=== PATIENT | female | born 1950 | race Caucasian/White ===

== ENCOUNTER 2020-06-18 10:52 | Outpatient (RCR) | payer MEDICARE, SELFPAY | END 2020-10-26 11:40 | disposition home or self-care (01) | LOC: HO.WCC 10:52 | PROVIDERS: PCP Internal Medicine; Visit Provider Surgery | DX: E11.621 Type 2 diabetes mellitus with foot ulcer (principal); E11.51 Type 2 diabetes mellitus with diabetic peripheral angiopathy without gangrene; I70.235 Atherosclerosis of native arteries of right leg with ulceration of other part of foot; L97.513 Non-pressure chronic ulcer of other part of right foot with necrosis of muscle; E11.69 Type 2 diabetes mellitus with other specified complication; M86.171 Other acute osteomyelitis, right ankle and foot; I70.202 Unspecified atherosclerosis of native arteries of extremities, left leg; I69.351 Hemiplegia and hemiparesis following cerebral infarction affecting right dominant side; G82.22 Paraplegia, incomplete; Z79.2 Long term (current) use of antibiotics; Z79.84 Long term (current) use of oral hypoglycemic drugs; Z79.01 Long term (current) use of anticoagulants; Z79.899 Other long term (current) drug therapy | CPT/HCPCS: 10060; 10061; 11042; 11043; 87071; 87147; 87186; 87205; 99213; 99214 ==

== ENCOUNTER 2020-06-30 16:29 | Outpatient (REF) | payer MEDICARE, SELFPAY | END 2020-06-30 16:30 | disposition home or self-care (01) | LOC: HO.LNP 16:29 | PROVIDERS: Visit Provider Surgery | DX: S90.921A Unspecified superficial injury of right foot, initial encounter (principal) | CPT/HCPCS: 87071; 87147; 87186; 87205 ==

== ENCOUNTER 2020-09-01 14:04 | Outpatient (REF) | payer MEDICARE, SELFPAY ==
--- NOTE | 2020-09-01 14:12 | XR_ITS ---
EXAMINATION: XR FOOT, RIGHT CLINICAL INFORMATION: Evaluate for fifth metatarsal head osteomyelitis COMPARISON: None TECHNIQUE: AP, lateral, and oblique views of the right foot. FINDINGS: Bone alignment is normal. No fracture or dislocation is seen. There is erosive or cystic change of the lateral aspect of the base of the proximal phalanx of the fifth toe at the fifth MTP joint questionable for osteomyelitis. The joint spaces are otherwise normal. There is soft tissue swelling adjacent to the fifth MTP joint. There are calcaneal spurs. There is soft tissue arterial calcification. XR/XR foot RT min 3V IMPRESSION: Subtle erosive or cystic changes of the base of the proximal phalanx of the fifth toe at the MTP joint questionable for osteomyelitis.
== END 2020-09-01 14:05 | disposition home or self-care (01) ==
LOC: HO.XRAY 14:04
PROVIDERS: PCP Internal Medicine; Visit Provider Surgery
DX: I70.203 Unspecified atherosclerosis of native arteries of extremities, bilateral legs (principal)
CPT/HCPCS: 73630

== ENCOUNTER → 2020-09-24 13:47 | Outpatient (BNVA) | payer MEDICARE, SELFPAY | PROVIDERS: Visit Provider Internal Medicine | DX: L08.9 Local infection of the skin and subcutaneous tissue, unspecified (principal) | CPT/HCPCS: 99202 ==

== ENCOUNTER → 2020-10-15 13:10 | Outpatient (BNVA) | payer MEDICARE, SELFPAY | PROVIDERS: Visit Provider Internal Medicine | DX: Z76.89 Persons encountering health services in other specified circumstances (principal) | CPT/HCPCS: 99212 ==

== ENCOUNTER 2020-10-15 14:08 | Inpatient (IN) | payer MEDICARE, SELFPAY ==
--- NOTE | ~2020-10-15 | US_ITS ---
EXAMINATION: COLOR-FLOW DUPLEX IMAGING OF THE BILATERAL LOWER EXTREMITY ARTERIAL SYSTEM. VELOCITY MEASUREMENTS THROUGHOUT THE FEMORAL ARTERIES WITH ANKLE-BRACHIAL PERIPHERAL ARTERIAL TESTING. CLINICAL INFORMATION: This a 70-year-old female with a nonhealing ulcer. Peripheral arterial disease. Interventional Radiologist: Wili Cartagena M.D., F.S.I.R., F.A.C.R. RIGHT FEMORAL RUNOFF VELOCITIES: The right common femoral artery measures 135 cm/s and triphasic. The right profunda femoral artery is 75 cm/s and is monophasic. Right proximal superficial femoral artery measures 98 cm/s and triphasic. Mid superficial femoral artery is 86 cm/s and biphasic. Distal right superficial femoral artery measures 69 cm/s and is biphasic. Right popliteal velocity measures 82 cm/s and is biphasic. The posterior tibial artery velocity measures 29 cm/s and was biphasic. The right ankle-brachial index is 1.02. LEFT FEMORAL RUNOFF VELOCITIES: The left common femoral artery measures 153 cm/s and triphasic. The left profunda femoral artery is 134 cm/s and is biphasic. Left proximal superficial femoral artery measures 72 cm/s and triphasic. Mid superficial femoral artery is 76 cm/s and biphasic. Distal left superficial femoral artery measures 57 cm/s and is biphasic. Left popliteal velocity measures 39 cm/s and is biphasic. The posterior tibial artery is not visualized. It may be occluded. The left ankle-brachial index is 1.36. US/US arterial duplex LE BI IMPRESSION: 1. Normal bilateral ankle-brachial indices. 2. No focal hemodynamically significant velocity shift is seen in the inflow or outflow vessels. 3. The left posterior tibial artery is not visualized and may be occluded. The right posterior tibial artery velocity is very low and the waveform is biphasic. This raises the possibility of small vessel disease in this patient.
--- NOTE | ~2020-10-15 | XR_ITS ---
EXAMINATION: XR FOOT, RIGHT CLINICAL INFORMATION: Right foot ulcer. COMPARISON: None TECHNIQUE: AP, lateral, and oblique views of the right foot. FINDINGS: A soft tissue wound is seen laterally adjacent to the fifth metatarsophalangeal joint. Erosive changes and lucency are seen involving the distal head of the fifth metatarsal and proximal base of the proximal phalanx at the fifth metatarsophalangeal joint space. The remainder the digits are intact. The tarsal bones are normally aligned. There is a small plantar calcaneal spur. Moderate to severe small vessel arterial sclerosis is seen. XR/XR foot RT 2V IMPRESSION: Lateral soft tissue wound superficial with erosive changes at the fifth metatarsophalangeal joint as detailed above concerning for osteomyelitis.
--- NOTE | ~2020-10-15 | US_ITS ---
EXAMINATION: COLOR-FLOW DUPLEX IMAGING OF THE BILATERAL LOWER EXTREMITY ARTERIAL SYSTEM. VELOCITY MEASUREMENTS THROUGHOUT THE FEMORAL ARTERIES WITH ANKLE-BRACHIAL PERIPHERAL ARTERIAL TESTING. CLINICAL INFORMATION: This a 70-year-old female with a nonhealing ulcer. Peripheral arterial disease. Interventional Radiologist: Wili Cartagena M.D., F.S.I.R., F.A.C.R. RIGHT FEMORAL RUNOFF VELOCITIES: The right common femoral artery measures 135 cm/s and triphasic. The right profunda femoral artery is 75 cm/s and is monophasic. Right proximal superficial femoral artery measures 98 cm/s and triphasic. Mid superficial femoral artery is 86 cm/s and biphasic. Distal right superficial femoral artery measures 69 cm/s and is biphasic. Right popliteal velocity measures 82 cm/s and is biphasic. The posterior tibial artery velocity measures 29 cm/s and was biphasic. The right ankle-brachial index is 1.02. LEFT FEMORAL RUNOFF VELOCITIES: The left common femoral artery measures 153 cm/s and triphasic. The left profunda femoral artery is 134 cm/s and is biphasic. Left proximal superficial femoral artery measures 72 cm/s and triphasic. Mid superficial femoral artery is 76 cm/s and biphasic. Distal left superficial femoral artery measures 57 cm/s and is biphasic. Left popliteal velocity measures 39 cm/s and is biphasic. The posterior tibial artery is not visualized. It may be occluded. The left ankle-brachial index is 1.36. US/US JATIN complete IMPRESSION: 1. Normal bilateral ankle-brachial indices. 2. No focal hemodynamically significant velocity shift is seen in the inflow or outflow vessels. 3. The left posterior tibial artery is not visualized and may be occluded. The right posterior tibial artery velocity is very low and the waveform is biphasic. This raises the possibility of small vessel disease in this patient.
--- NOTE | ~2020-10-15 | CT_ITS ---
EXAMINATION: CT FOOT WITHOUT CONTRAST, RIGHT CLINICAL INFORMATION: Diabetic foot ulcer COMPARISON: Radiographs 10/15/2020 TECHNIQUE: A noncontrast CT of the right foot is performed with sagittal and coronal reformats. This CT examination was performed using dose optimization techniques as appropriate, variously including the following: *Automated exposure control *Adjustment of mA and/or kV according to patient size (this includes techniques or standardized protocols for targeted exams where dose is matched to indication/reason for exam; i.e. extremities or head) *Use of iterative reconstruction technique DLP: 168 mGy-cm FINDINGS: There is a soft tissue ulcer along the dorsal lateral aspect of the 5th MTP joint. The 5th metatarsal head is eroded/destroyed over a length of 1.5 cm to the head which is dorsally displaced. There is also evidence of erosion involving the base of the 5th proximal phalanx. These findings are compatible with osteomyelitis. No other foci of osteomyelitis are evident. Diffuse vascular calcifications are noted. CT/CT foot RT wo con IMPRESSION: Evidence of osteomyelitis involving the 5th metatarsal head and likely the base of the proximal phalanx.
[2020-10-15 15:12] VITALS: BP 112/57; PULSE 90; RESP 18; TEMP 36.8; O2SAT 98; BMI 34.7
--- NOTE | 2020-10-15 16:05 | ED_ITS ---
HPI - General Adult General Chief complaint: General Medical Stated complaint: foot infection Time Seen by Provider: 10/15/20 16:05 Source: patient and family Mode of arrival: ambulatory Limitations: other (MEMORY LOSS) History of Present Illness HPI narrative: Patient is 70 years old with history of diabetes, CVA with memory loss sent from ID office for nonhealing deep wound on the lateral aspect of the R foot for last 6 months and been on doxycycline having purulent discharge lately with slight warmth around the wound Onset (ago): month(s) (6) Related Data Home Medications Medication Instructions Recorded Confirmed levetiracetam 750 tab PO BID 10/15/20 10/15/20 lisinopril 5 tab PO DAILY 10/15/20 10/15/20 metformin 500 tab PO BID 10/15/20 10/15/20 warfarin 3 mg PO DAILY 10/15/20 10/15/20 Allergies Allergy/AdvReac Type Severity Reaction Status Date / Time bupropion [From Wellbutrin] Allergy Intermediate Seizure Verified 10/15/20 15:12 Review of Systems Review of Systems: Constitutional : No Weight loss, No Fever, No Chills ENT/Mouth : No sore throat, No Rhinorrhea Eyes: No Eye Pain, No Swelling Cardiovascular : No Chest Pain, no palpitations Respiratory : No Cough, No Sputum, no shortness of breath Gastrointestinal : no Nausea, No Vomiting, No Diarrhea, No abdominal Pain, no black stools Genitourinary : No Dysuria, No Urinary Frequency Musculoskeletal : No joint pain, No Myalgias, No Joint Swelling Skin : No Skin Lesions, No rash Neuro : No Weakness, No Numbness, No Dizziness, No Headache Psych : No Anxiety/Panic, No Depression Heme/Lymph: No Bruising, No Lymphadenopathy Endocrine : No Polyuria, No Polydipsia All other systems reviewed and are negative PMF Past Medical History Medical History (Updated 10/15/20 @ 16:50 by Lizandro Danielle MD) Afib CVA (cerebral vascular accident) Diabetes mellitus Expressive aphasia HTN (hypertension) On Coumadin for atrial fibrillation Right foot infection Seizures Surgical History (Updated 10/15/20 @ 15:19 by Yohana Bell) H/O shoulder surgery Social History Social History Smoking Status: Former smoker Use of substances other than those prescribed or required for medical reasons: No Advance Directives: No Advance Directives Information Provided: No Physical Exam Vital Signs: Vital Signs: Last Vital Signs Temp 98.0 F 10/15/20 16:27 Pulse 81 10/15/20 18:10 Resp 18 10/15/20 18:10 BP 119/64 10/15/20 18:10 Pulse Ox 97 10/15/20 18:10 Body Mass Index 34.7 Appearance: Alert. Oriented X3. No acute distress. Eyes: Pupils equal, round and reactive to light. ENT: Pharynx normal. Neck: Normal inspection. Neck supple. CVS: Normal heart rate and rhythm. Pulses normal. Respiratory: No respiratory distress. Breath sounds normal. Abdomen: Soft and nontender. Bowel sounds are present, no mass palpable, no CVA tenderness Skin: Skin warm and dry. Deep puncture wound on lateral aspect of right foot and head of 5th metatarsal with local warmth foul smelling discharge Extremities: No lower extremity edema. Neuro: Oriented X 3. No motor deficit. No sensory deficit. Extrem: Ankle/foot/toe images: 1. Deep puncture wound with foul smelling discharge packing inside Medical Decision Making MDM Narrative Medical decision making narrative: Patient with deep nonhealing ulcer right foot with bone erosion suggestive of osteomyelitis changes will admit patient for IV antibiotics and surgery consultation for possible surgery Lab Data Lab results reviewed: Yes I reviewed the patient's lab results. Result diagrams: 10/15/20 16:47 10/15/20 16:47 Labs: Lab Results 10/15/20 10/15/20 10/15/20 Range/Units 16:47 16:47 16:47 WBC 7.7 (4.8-10.8) X10*3/uL RBC 4.06 L (4.20-5.50) X10*6/uL Hgb 12.5 (12.0-16.0) g/dl Hct 37.9 (37-47) % MCV 93.3 (80-98) fL MCH 30.8 (27.0-33.0) pg MCHC 33.0 (31.0-35.0) g/dl RDW 12.6 (11.0-16.0) % Plt Count 264 (160-400) X10*3/uL MPV 8.6 L (9.4-12.3) fL Immature Gran % (Auto) 0.3 (0.0-0.4) % Neut % (Auto) 61.0 (45-73) % Lymph % (Auto) 29.1 (20-40) % [place] % (Auto) 7.0 (2-11) % Eos % (Auto) 2.3 (0-4) % Baso % (Auto) 0.3 (0-2) % Lymph # (Auto) 2.2 (1.2-4.9) X10*3/uL [place] # (Auto) 0.5 (0.1-1.2) X10*3/uL Eos # (Auto) 0.2 (0.0-0.4) X10*3/uL Baso # (Auto) 0.0 (0.0-0.2) X10*3/uL Abs Immat Gran (auto) 0.02 (0.00-0.03) X10*3/uL Absolute Neuts (auto) 4.7 (2.0-8.3) X10*3/uL Absolute Nucleated RBC 0.000 (0.0-0.012) X10*3/uL Nucleated RBC % (auto) 0.0 (0.0-0.2) /100WBC ESR (0-20) MM/HR PT 22.1 H (10.8-13.0) SEC INR 1.9 H (0.9-1.1) Sodium 135 (135-145) mmol/L Potassium 4.6 (3.3-5.1) mmol/L Chloride 100 (96-108) mmol/L Carbon Dioxide 24 (22-29) mmol/L Anion Gap 16 (12-20) BUN 26 H (9-16) mg/dL Creatinine 0.79 (0.5-1.4) mg/dL Estim Creat Clear Calc 66.5 Estimated GFR > 60 Random Glucose 109 (60-115) mg/dL Lactic Acid (0.5-2.0) mmol/L Calcium 9.8 (8.4-10.2) mg/dL Total Bilirubin 0.8 (0.0-1.0) mg/dL Direct Bilirubin 0.3 (0.0-0.5) mg/dL AST 14 (5-31) U/L ALT 14 (0-31) U/L Alkaline Phosphatase 58 (39-117) U/L Total Protein 7.5 (6.5-8.0) g/dL Albumin 4.1 (3.5-5.0) g/dL COVID-19 ([facility]) (Negative) COVID-19 Clin Com 10/15/20 10/15/20 10/15/20 Range/Units 16:47 16:47 16:47 WBC (4.8-10.8) X10*3/uL RBC (4.20-5.50) X10*6/uL Hgb (12.0-16.0) g/dl Hct (37-47) % MCV (80-98) fL MCH (27.0-33.0) pg MCHC (31.0-35.0) g/dl RDW (11.0-16.0) % Plt Count (160-400) X10*3/uL MPV (9.4-12.3) fL Immature Gran % (Auto) (0.0-0.4) % Neut % (Auto) (45-73) % Lymph % (Auto) (20-40) % [place] % (Auto) (2-11) % Eos % (Auto) (0-4) % Baso % (Auto) (0-2) % Lymph # (Auto) (1.2-4.9) X10*3/uL [place] # (Auto) (0.1-1.2) X10*3/uL Eos # (Auto) (0.0-0.4) X10*3/uL Baso # (Auto) (0.0-0.2) X10*3/uL Abs Immat Gran (auto) (0.00-0.03) X10*3/uL Absolute Neuts (auto) (2.0-8.3) X10*3/uL Absolute Nucleated RBC (0.0-0.012) X10*3/uL Nucleated RBC % (auto) (0.0-0.2) /100WBC ESR 58 H (0-20) MM/HR PT (10.8-13.0) SEC INR (0.9-1.1) Sodium (135-145) mmol/L Potassium (3.3-5.1) mmol/L Chloride (96-108) mmol/L Carbon Dioxide (22-29) mmol/L Anion Gap (12-20) BUN (9-16) mg/dL Creatinine (0.5-1.4) mg/dL Estim Creat Clear Calc Estimated GFR Random Glucose (60-115) mg/dL Lactic Acid 1.3 (0.5-2.0) mmol/L Calcium (8.4-10.2) mg/dL Total Bilirubin (0.0-1.0) mg/dL Direct Bilirubin (0.0-0.5) mg/dL AST (5-31) U/L ALT (0-31) U/L Alkaline Phosphatase (39-117) U/L Total Protein (6.5-8.0) g/dL Albumin (3.5-5.0) g/dL COVID-19 ([facility]) Negative (Negative) COVID-19 Clin Com See Note Imaging Data Right foot: Attestation: I personally reviewed and interpreted this imaging study as follows: Radiologist's impression: EXAMINATION: XR FOOT, RIGHT CLINICAL INFORMATION: Right foot ulcer. COMPARISON: None TECHNIQUE: AP, lateral, and oblique views of the right foot. FINDINGS: A soft tissue wound is seen laterally adjacent to the fifth metatarsophalangeal joint. Erosive changes and lucency are seen involving the distal head of the fifth metatarsal and proximal base of the proximal phalanx at the fifth metatarsophalangeal joint space. The remainder the digits are intact. The tarsal bones are normally aligned. There is a small plantar calcaneal spur. Moderate to severe small vessel arterial sclerosis is seen. XR/XR foot RT 2V IMPRESSION: Lateral soft tissue wound superficial with erosive changes at the fifth metatarsophalangeal joint as detailed above concerning for osteomyelitis. Discharge Plan Discharge Prescriptions: No Action metformin 500 mg tablet 500 tab PO BID RF: 0 warfarin 3 mg tablet 3 mg PO DAILY RF: 0 levetiracetam 750 mg tablet 750 tab PO BID RF: 0 lisinopril 5 mg tablet 5 tab PO DAILY RF: 0
[2020-10-15 16:27] VITALS: BP 114/61; PULSE 86; RESP 18; TEMP 36.7; O2SAT 98
--- NOTE | 2020-10-15 16:29 | PC.NURSE ---
pt alert but also states having trouble remembering and expressing her words due to old cva pt here for right foot wound, had packing that was almost complete out, small hole on the outer of the right foot with slight foul order, tender to touch and slightly warm to touch, dr aragon removed the packing. positive pedal pulses
[2020-10-15 16:55] LABS: MANUAL DIFF FLAG NO
[2020-10-15 16:57] LABS: Basophils Percent Auto 0.3 % (0-2); Eosinophils Absolute Auto 0.2 X10*3/uL (0.0-0.4); Eosinophils Percent Auto 2.3 % (0-4); Hematocrit 37.9 % (37-47); Hemoglobin 12.5 g/dl (12.0-16.0); Imm Gran Abs Auto 0.02 X10*3/uL (0.00-0.03); Imm Gran Pct Auto 0.3 % (0.0-0.4); Lymphocytes Absolute Auto 2.2 X10*3/uL (1.2-4.9); Lymphocytes Percent Auto 29.1 % (20-40); Mean Corpuscular Hemoglobin 30.8 pg (27.0-33.0); Mean Corpuscular Volume 93.3 fL (80-98); Mean Platelet Volume 8.6 fL (9.4-12.3); Monocytes Absolute Auto 0.5 X10*3/uL (0.1-1.2); Neutrophils Absolute Auto 4.7 X10*3/uL (2.0-8.3); Platelet Count 264 X10*3/uL (160-400); Red Blood Count 4.06 X10*6/uL (4.20-5.50); Red Cell Distribution Width 12.6 % (11.0-16.0); White Blood Count 7.7 X10*3/uL (4.8-10.8)
[2020-10-15 17:06] LABS: INTERNATIONAL NORM RATIO 1.9 (0.9-1.1); Prothrombin Time 22.1 SEC (10.8-13.0)
[2020-10-15 17:14] LABS: COVID-19 Test Negative (Negative)
[2020-10-15 17:16] LABS: Lactic Acid 1.3 mmol/L (0.5-2.0)
[2020-10-15 17:25] LABS: Alanine Aminotransferase 14 U/L (0-31); Albumin Level 4.1 g/dL (3.5-5.0); Alkaline Phosphatase 58 U/L (39-117); Anion Gap 16 (12-20); Aspartate Amino Transferase 14 U/L (5-31); Bilirubin Direct 0.3 mg/dL (0.0-0.5); Bilirubin Total 0.8 mg/dL (0.0-1.0); Blood Urea Nitrogen 26 mg/dL (9-16); Calcium 9.8 mg/dL (8.4-10.2); Carbon Dioxide 24 mmol/L (22-29); Chloride 100 mmol/L (96-108); Creatinine Clr Calc Pharmacy 66.5; Estimated Glomerular Filt Rate > 60; Glucose Random 109 mg/dL (60-115); Potassium 4.6 mmol/L (3.3-5.1); Sodium 135 mmol/L (135-145); Total Protein 7.5 g/dL (6.5-8.0)
[2020-10-15] MEDS: Piperacillin Sodium/Tazobactam 3.375 GM in 0.9 % Sodium Chloride 50 ML IV ×2 (17:25→21:07)
[2020-10-15 18:02] LABS: Erythrocyte Sedimentation Rate 58 MM/HR (0-20)
[2020-10-15 18:10] VITALS: BP 119/64; PULSE 81; RESP 18; O2SAT 97
[2020-10-15] MEDS: vancomycin HCL 1,000 MG in 0.9 % Sodium Chloride 250 ML 270 MG IV (18:10)
[2020-10-15 19:10] LABS: Glucose Urine UA NEG (NEG); Leukocyte Esterase Urine NEG (NEG); Nitrite Urine NEG (NEG); PH 5.5 (5.0-8.0); Urine Blood NEG (NEG); Urine Ketones NEG (NEG); Urine Protein NEG (NEG-TRACE)
[2020-10-15 19:11] LABS: Appearance Urine CLEAR; Color Urine YELLOW
--- NOTE | 2020-10-15 19:16 | PC.NURSE ---
REPORT RECEIVED FROM DIEGO MELLO. WILL CONTINUE TO MONITOR.
--- NOTE | 2020-10-15 19:21 | PC.NURSE ---
PATIENT REQUESTED AND GIVEN TURKEY SANDWICH AND [employer]. CALL [facility]BY WITHIN REACH, PATIENT ABLE TO MAKE NEEDS KNOWN.
--- NOTE | 2020-10-15 20:01 | PC.NURSE ---
HOSPITALIST AT BEDSIDE SPEAKING WITH PATIENT. AWAITING ADMITTING BED.
--- NOTE | 2020-10-15 20:10 | P.HPHOSP_ITS ---
History of Present Illness Date of Service: 10/15/20 Chief Complaint: Foot wound 70 year old women presented with diabetic foot wound that has been ongoing for some time. She was seen at the wound clinic today and was sent to the ED due to poor wound healing and possible abscess or osteomyelitis. She has a history of stroke and some aphagia and is somewhat vague. She reports some pain to her right foot. She has no fever or leukocytosis. She received Vanco and Zosyn in the ED. Review of Systems Review of Systems: Denies any recent fever chills or decrease in appetite respiratory denies any shortness of breath coverage production cardiovascular is adjustment of any PND or edema gastrointestinal denies any dysphagia abdominal pain nausea vomiting or diarrhea genitourinary denies any dysuria frequency or hematuria neuropsych hx of seizures and stroke with right arm weakness all other systems reviewed are negative [facility] Medical History (Updated 10/15/20 @ 18:31 by Lizandro Danielle MD) Afib CVA (cerebral vascular accident) Diabetes mellitus Expressive aphasia HTN (hypertension) On Coumadin for atrial fibrillation Right foot infection Seizures Surgical History (Updated 10/15/20 @ 15:19 by Yohana Bell) H/O shoulder surgery Social History Smoking Status: Former smoker Use of substances other than those prescribed or required for medical reasons: No Advance Directives: No Advance Directives Information Provided: No Meds Allergies Allergy/AdvReac Type Severity Reaction Status Date / Time bupropion [From Wellbutrin] Allergy Intermediate Seizure Verified 10/15/20 15:12 Home Medications Medication Instructions Recorded Confirmed Type levetiracetam 750 tab PO BID 10/15/20 10/15/20 History lisinopril 5 tab PO DAILY 10/15/20 10/15/20 History metformin 500 tab PO BID 10/15/20 10/15/20 History warfarin 3 mg PO DAILY 10/15/20 10/15/20 History Physical Exam Vital Signs and Narrative: Vital Signs: Last Vital Signs Temp 98.0 F 10/15/20 16:27 Pulse 81 10/15/20 18:10 Resp 18 10/15/20 18:10 BP 119/64 10/15/20 18:10 Pulse Ox 97 10/15/20 18:10 Body Mass Index 34.7 Appearing in no acute distress head is normocephalic atraumatic eyes pupils are PERRLA sclera is anicteric mouth throat mucous membranes are intact and moist neck is supple no lymphadenopathy, no JVD noted lung sounds are clear to auscultation heart regular rate rhythm, clear S1, S2 positive bowel sounds, abdomen is soft, nontender neuro patient is alert oriented to person and year Right foot with packing from wound clinic. Results Labs CBC and Chem 7: 10/15/20 16:47 10/15/20 16:47 Labs: Laboratory Results - last 24 hr 10/15/20 10/15/20 10/15/20 16:47 16:47 16:47 MCV 93.3 MCH 30.8 MCHC 33.0 RDW 12.6 Plt Count 264 MPV 8.6 L Immature Gran % (Auto) 0.3 Neut % (Auto) 61.0 Lymph % (Auto) 29.1 [place] % (Auto) 7.0 Eos % (Auto) 2.3 Baso % (Auto) 0.3 Lymph # (Auto) 2.2 [place] # (Auto) 0.5 Eos # (Auto) 0.2 Baso # (Auto) 0.0 Abs Immat Gran (auto) 0.02 Absolute Neuts (auto) 4.7 Absolute Nucleated RBC 0.000 Nucleated RBC % (auto) 0.0 ESR PT 22.1 H INR 1.9 H Anion Gap 16 Estim Creat Clear Calc 66.5 Estimated GFR > 60 Random Glucose 109 Lactic Acid Calcium 9.8 Total Bilirubin 0.8 Direct Bilirubin 0.3 AST 14 ALT 14 Alkaline Phosphatase 58 Total Protein 7.5 Albumin 4.1 Urine Color Urine Appearance Urine pH Ur Specific [place] Urine Protein Urine Glucose (UA) Urine Ketones Urine Blood Urine Nitrite Ur Leukocyte Esterase COVID-19 ([facility]) COVID-19 Clin Com 10/15/20 10/15/20 10/15/20 16:47 16:47 16:47 MCV MCH MCHC RDW Plt Count MPV Immature Gran % (Auto) Neut % (Auto) Lymph % (Auto) [place] % (Auto) Eos % (Auto) Baso % (Auto) Lymph # (Auto) [place] # (Auto) Eos # (Auto) Baso # (Auto) Abs Immat Gran (auto) Absolute Neuts (auto) Absolute Nucleated RBC Nucleated RBC % (auto) ESR 58 H PT INR Anion Gap Estim Creat Clear Calc Estimated GFR Random Glucose Lactic Acid 1.3 Calcium Total Bilirubin Direct Bilirubin AST ALT Alkaline Phosphatase Total Protein Albumin Urine Color Urine Appearance Urine pH Ur Specific [place] Urine Protein Urine Glucose (UA) Urine Ketones Urine Blood Urine Nitrite Ur Leukocyte Esterase COVID-19 ([facility]) Negative COVID-19 Clin Com See Note 10/15/20 19:03 MCV MCH MCHC RDW Plt Count MPV Immature Gran % (Auto) Neut % (Auto) Lymph % (Auto) [place] % (Auto) Eos % (Auto) Baso % (Auto) Lymph # (Auto) [place] # (Auto) Eos # (Auto) Baso # (Auto) Abs Immat Gran (auto) Absolute Neuts (auto) Absolute Nucleated RBC Nucleated RBC % (auto) ESR PT INR Anion Gap Estim Creat Clear Calc Estimated GFR Random Glucose Lactic Acid Calcium Total Bilirubin Direct Bilirubin AST ALT Alkaline Phosphatase Total Protein Albumin Urine Color YELLOW Urine Appearance CLEAR Urine pH 5.5 Ur Specific [place] 1.010 Urine Protein NEG Urine Glucose (UA) NEG Urine Ketones NEG Urine Blood NEG Urine Nitrite NEG Ur Leukocyte Esterase NEG COVID-19 ([facility]) COVID-19 Clin Com Imaging Radiologist's Impressions: Impressions Foot X-Ray 10/15/20 16:26 IMPRESSION: Lateral soft tissue wound superficial with erosive changes at the fifth metatarsophalangeal joint as detailed above concerning for osteomyelitis. Assessment and Plan (1) Osteomyelitis of fifth toe of right foot: Status: Acute 70 year old women admitted with worsening diabetic foot wound and osteomyelitis Osteomyelitis secondary to diabetic foot wound. Vancomycin, Zosyn, General surgery consultation, pain managment. ID follows as outpatient. HTN. Stable. Continue Lisinopril. Afib. Stable. Continue warfarin. PT/INR daily. Diabetes. Sliding scale, ADA diet. Seizure disorder.Keppra. Seizure precaustions. DVT prophylaxis with Warfarin Discussed with Dr. Urias Full code
[2020-10-15] MEDS: levETIRAcetam 250 MG TABLET 750 MG PO (21:07)
[2020-10-15 21:10] LABS: Glucose, Whole Blood 162 mg/dL (60-115)
[2020-10-15] MEDS: Insulin Lispro 100 UNIT/ML 3 ML VIAL SUBCUT (21:12)
[2020-10-15 22:08] VITALS: BP 128/63; PULSE 83; RESP 18; TEMP 35.8; O2SAT 97
[2020-10-15] MEDS: 0.9 % Sodium Chloride Flush 3 ML SYRINGE IVFLUSH (22:28)
[2020-10-15] MEDS: Nystatin Powder 15 GM BOTTLE 1 APPL TOPICAL (22:51)
[2020-10-15 23:33] VITALS: BP 115/55; PULSE 80; RESP 16; TEMP 35.9; O2SAT 97
[2020-10-16] VITALS (8 sets, daily range): BP systolic 113–175; BP diastolic 60–82; PULSE 73–103; RESP 16–20; TEMP 35.7–37; O2SAT 95–98
[2020-10-16] MEDS: Piperacillin Sodium/Tazobactam 3.375 GM in 0.9 % Sodium Chloride 50 ML IV ×4 (03:57→22:47)
[2020-10-16 06:41] LABS: MANUAL DIFF FLAG NO
[2020-10-16 06:50] LABS: Basophils Percent Auto 0.3 % (0-2); Eosinophils Absolute Auto 0.1 X10*3/uL (0.0-0.4); Hematocrit 37.5 % (37-47); Hemoglobin 12.3 g/dl (12.0-16.0); Imm Gran Abs Auto 0.02 X10*3/uL (0.00-0.03); Imm Gran Pct Auto 0.3 % (0.0-0.4); Lymphocytes Absolute Auto 1.6 X10*3/uL (1.2-4.9); Lymphocytes Percent Auto 24.7 % (20-40); Mean Corpuscular HGB Conc 32.8 g/dl (31.0-35.0); Mean Corpuscular Hemoglobin 30.7 pg (27.0-33.0); Mean Corpuscular Volume 93.5 fL (80-98); Mean Platelet Volume 8.7 fL (9.4-12.3); Monocytes Absolute Auto 0.5 X10*3/uL (0.1-1.2); Monocytes Percent Auto 8.1 % (2-11); Neutrophils Absolute Auto 4.1 X10*3/uL (2.0-8.3); Neutrophils Percent Auto 64.6 % (45-73); Platelet Count 259 X10*3/uL (160-400); Red Blood Count 4.01 X10*6/uL (4.20-5.50); Red Cell Distribution Width 12.6 % (11.0-16.0); White Blood Count 6.4 X10*3/uL (4.8-10.8)
[2020-10-16 06:53] LABS: INTERNATIONAL NORM RATIO 2.1 (0.9-1.1); Prothrombin Time 24.9 SEC (10.8-13.0)
[2020-10-16 07:24] LABS: Anion Gap 15 (12-20); Blood Urea Nitrogen 21 mg/dL (9-16); Calcium 9.2 mg/dL (8.4-10.2); Carbon Dioxide 26 mmol/L (22-29); Chloride 102 mmol/L (96-108); Creatinine Clr Calc Pharmacy 60.4; Estimated Glomerular Filt Rate > 60; Glucose Random 132 mg/dL (60-115); Potassium 5.2 mmol/L (3.3-5.1); Sodium 138 mmol/L (135-145)
[2020-10-16 08:07] LABS: Glucose, Whole Blood 114 mg/dL (60-115)
[2020-10-16] MEDS: levETIRAcetam 250 MG TABLET 750 MG PO ×2 (08:07→20:39)
[2020-10-16] MEDS: Nystatin Powder 15 GM BOTTLE 1 APPL TOPICAL ×2 (08:07→20:40)
[2020-10-16] MEDS: 0.9 % Sodium Chloride Flush 3 ML SYRINGE IVFLUSH ×3 (08:07→20:41)
--- NOTE | 2020-10-16 09:53 | PM.CNGS ---
History of Present Illness Consult details Consult date: 10/16/20 <KAYODE Abbott - Last Filed: 10/16/20 10:42> Reason for consult: other (Right Fifth toe Osteomyelitis) <KAYODE Abbott - Last Filed: 10/16/20 10:42> Requesting physician: Naheed Lerma <KAYODE Abbott - Last Filed: 10/16/20 10:42> Narrative: 70 yo female presented to the ED yesterday for worsening Right fifth toe pain. She has been receiving wound care of the area due to DM ulcer for the last 6 months but the area has recently had increased drainage and discomfort. SHe is apoor historian due to prior CVA. In the ED she was started on ABX and X-Ray suggested a worsening suspecoected osteomyelitis since X-ray from August. Surgery was consulted for possible surgical intervention. She was seen this morning at bedside. She is resting comfortably in bed, no acute distress. She states that the area does feel better and she has no new complaints. VSS. She has no leukocytosis. <KAYODE Abbott - Last Filed: 10/16/20 10:42> Review of Systems Review of Systems: Yes all other systems are reviewed and are negative <KAYODE Abbott - Last Filed: 10/16/20 10:42> Musculoskeletal: Comments: Right lateral foot pain <KAYODE Abbott - Last Filed: 10/16/20 10:42> PMF Past Medical History Medical History: Medical History (Updated 10/16/20 @ 10:40 by KAYODE Abbott) Afib CVA (cerebral vascular accident) Diabetes mellitus Expressive aphasia HTN (hypertension) On Coumadin for atrial fibrillation Right foot infection Seizures <KAYODE Abbott - Last Filed: 10/16/20 10:42> Surgical History Surgical History: Surgical History H/O shoulder surgery <KAYODE Abbott - Last Filed: 10/16/20 10:42> Social History Social History: Social History Household Members: Children Housing: House Do you presently have visiting nurse or other home services: No Smoking Status: Never smoker Use of substances other than those prescribed or required for medical reasons: No Have you been hit, kicked, punched, or otherwise hurt by someone within the past year? If so, by whom?: No Do you feel safe in your current relationship?: Yes Is there a partner from a previous relationship who is making you feel unsafe now?: No Are you made to feel afraid or neglected: No Advance Directives: No Advance Directives Information Provided: No Do you have thoughts of harming others: None Do you have a plan to hurt others: No Plan Recently lost weight without trying: No <KAYODE Abbott Last Filed: 10/16/20 10:42> Meds Allergies/Adverse reactions: Allergies Allergy/AdvReac Type Severity Reaction Status Date / Time bupropion [From Wellbutrin] Allergy Intermediate Seizure Verified 10/15/20 15:12 <KAYODE Abbott Last Filed: 10/16/20 10:42> Home medications: Home Medications Medication Instructions Recorded Confirmed Type levetiracetam 750 tab PO BID 10/15/20 10/15/20 History lisinopril 5 mg PO DAILY 10/15/20 10/16/20 History metformin 500 tab PO BID 10/15/20 10/15/20 History warfarin 3 mg PO DAILY 10/15/20 10/15/20 History <KAYODE Abbott Last Filed: 10/16/20 10:42> Physical Exam Vital Signs: Vital Signs: Last Vital Signs Temp 97.4 F 10/16/20 09:00 Pulse 82 10/16/20 08:07 Resp 18 10/16/20 08:00 BP 146/82 H 10/16/20 08:07 Pulse Ox 98 10/16/20 08:00 Body Mass Index 34.7 <KAYODE Abbott Last Filed: 10/16/20 10:42> Const: General: no acute distress <KAYODE Abbott Last Filed: 10/16/20 10:42> Nutritional Appearance: overweight <KAYODE Abbott Last Filed: 10/16/20 10:42> Orientation/consciousness: Other orientation findings (Expressive barrier) <KAYODE Abbott Last Filed: 10/16/20 10:42> Results Labs Result diagrams: : 10/16/20 06:21 10/16/20 06:21 <KAYODE Abbott - Last Filed: 10/16/20 10:42> Labs: Abnormal lab results 10/15/20 10/15/20 10/15/20 Range/Units 16:47 16:47 16:47 RBC 4.06 L (4.20-5.50) X10*6/uL MPV 8.6 L (9.4-12.3) fL ESR (0-20) MM/HR PT 22.1 H (10.8-13.0) SEC INR 1.9 H (0.9-1.1) Potassium (3.3-5.1) mmol/L BUN 26 H (9-16) mg/dL POC Glucose (60-115) mg/dL Random Glucose (60-115) mg/dL 10/15/20 10/15/20 10/16/20 Range/Units 16:47 21:06 06:21 RBC (4.20-5.50) X10*6/uL MPV (9.4-12.3) fL ESR 58 H (0-20) MM/HR PT 24.9 H (10.8-13.0) SEC INR 2.1 H (0.9-1.1) Potassium (3.3-5.1) mmol/L BUN (9-16) mg/dL POC Glucose 162 H (60-115) mg/dL Random Glucose (60-115) mg/dL 10/16/20 10/16/20 Range/Units 06:21 06:21 RBC 4.01 L (4.20-5.50) X10*6/uL MPV 8.7 L (9.4-12.3) fL ESR (0-20) MM/HR PT (10.8-13.0) SEC INR (0.9-1.1) Potassium 5.2 H (3.3-5.1) mmol/L BUN 21 H (9-16) mg/dL POC Glucose (60-115) mg/dL Random Glucose 132 H (60-115) mg/dL Short CBC 10/15/20 10/16/20 Range/Units 16:47 06:21 WBC 7.7 6.4 (4.8-10.8) X10*3/uL Hgb 12.5 12.3 (12.0-16.0) g/dl Hct 37.9 37.5 (37-47) % Plt Count 264 259 (160-400) X10*3/uL BMP 10/15/20 10/16/20 16:47 06:21 Sodium 135 138 Potassium 4.6 5.2 H Chloride 100 102 Carbon Dioxide 24 26 BUN 26 H 21 H Creatinine 0.79 0.87 Calcium 9.8 9.2 D Liver Function 10/15/20 Range/Units 16:47 Total Bilirubin 0.8 (0.0-1.0) mg/dL Direct Bilirubin 0.3 (0.0-0.5) mg/dL AST 14 (5-31) U/L ALT 14 (0-31) U/L Alkaline Phosphatase 58 (39-117) U/L Albumin 4.1 (3.5-5.0) g/dL Urine 10/15/20 Range/Units 19:03 Urine Color YELLOW Urine Appearance CLEAR Urine pH 5.5 (5.0-8.0) Ur Specific [place] 1.010 (1.005-1.025) Urine Protein NEG (NEG-TRACE) MG/DL Urine Glucose (UA) NEG (NEG) MG/DL All other labs normal. <KAYODE Abbott - Last Filed: 10/16/20 10:42> Assessment and Plan (1) Osteomyelitis of fifth toe of right foot: Problem details: 70 yo female presented to the ED yesterday for ID clinic for worsening Right lateral foot wound and drainage. Concern for osteomyeltis and abscess. <KAYODE Abbott - Last Filed: 10/16/20 10:42> Status: Acute <KAYODE Abbott - Last Filed: 10/16/20 10:42> COntinue ABX Daily wound changes with silver alginate and dry gauze Keep Right leg elevated pain mgmt No emergent surgical intervention needed at this time. Will continue to follow with medicine team. <KAYODE Abbott - Last Filed: 10/16/20 10:42> . General Surgery Attending - Misty Corrales M.D. Patient was evaluated and examined at the bedside with Mr. Chinmay Middleton PA-C. I confirm above findings and plan as documented. Right lateral foot SQ infection with osteomyelitis. No immediate surgical indication. No pulse on DP or PT that can easily be palpated. Diabetic osteomyelitis. Will need Vascular Surgical evaluation for arterial circulation prior to any definitive surgical treatment. Continue IV Abx. <Elodia Corrales MD - Last Filed: 10/16/20 10:52>
--- NOTE | 2020-10-16 10:00 | HO.PM.IMPN ---
Subjective Subjective Date of Service: 10/16/20 Interval History: right foot non healing ulcer Cardiovascular Cardiovascular: Reports no additional cardiovascular complaints Gastrointestinal Gastrointestinal: Reports no additional gastrointestinal complaints Physical Exam Vital Signs: Vital Signs: Last Vital Signs Temp 97.4 F 10/16/20 09:00 Pulse 82 10/16/20 08:07 Resp 18 10/16/20 08:00 BP 146/82 H 10/16/20 08:07 Pulse Ox 98 10/16/20 08:00 Body Mass Index 34.7 General: Aler, aphasia Resp: CTA bilateral CVS: S1,S2,RRR GI: soft, non tender, non distended Neuro: right hemiparesis Psych: appropriate affect Objective Data Current Medications Generic Name Dose Route Start Last Admin Trade Name Freq PRN Reason Stop Dose Admin Acetaminophen 650 mg 10/15/20 20:06 Acetaminophen 325 Mg Tablet PO Q6H PRN Pain, Mild (Pain Scale 1-3) Piperacillin Sod/Tazobactam 50 mls @ 100 mls/hr 10/15/20 22:00 10/16/20 04:37 Sod 3.375 gm/ Sodium Chloride IV Infused Q6H CRISTOPHER Infusion Vancomycin HCl 750 mg/ 275 mls @ 183.333 mls/hr 10/16/20 19:00 Vancomycin HCl 500 mg/ Sodium IV Chloride Q24H CRISTOPHER Insulin Human Lispro 0 unit 10/15/20 21:00 10/16/20 08:07 Insulin Lispro 100 Unit/Ml 3 Ml Vial SUBCUT Not Given QIDACHS [facility] Protocol Levetiracetam 750 mg 10/15/20 21:00 10/16/20 08:07 Levetiracetam 250 Mg Tablet PO 750 mg BID CRISTOPHER Administration Lisinopril 5 mg 10/16/20 09:00 10/16/20 08:07 Lisinopril 5 Mg Tablet PO 5 mg DAILY [facility] Administration Protocol Nystatin 1 appl 10/15/20 22:45 10/16/20 08:07 Nystatin Powder 15 Gm Bottle TOPICAL 1 appl BID CRISTOPHER Administration Protocol Ondansetron HCl 4 mg 10/15/20 20:06 Ondansetron Hcl 4 Mg/2 Ml Vial IVPUSH Q8H PRN Nausea and Vomiting Oxycodone HCl 5 mg 10/15/20 20:10 Oxycodone Hcl Immed Release 5 Mg Tablet PO Q6H PRN Pain, Mild (Pain Scale 1-3) Pharmacy Consult 1 each 10/15/20 20:09 Consult Rx Vancomycin Dosing MISCELLANE DAILY PRN Consult order Sodium Chloride 3 ml 10/16/20 00:00 10/16/20 08:07 0.9 % Sodium Chloride Flush 3 Ml Syringe IVFLUSH 3 ml QSHIFT CRISTOPHER Administration Labs CBC & Chem 7: 10/16/20 06:21 10/16/20 06:21 Microbiology Microbiology Results: Microbiology 10/15/20 21:34 Foot Right Gram Stain - Final 10/15/20 21:34 Foot Right Routine Culture - Preliminary No growth to date. Assessment and Plan (1) Osteomyelitis of fifth toe of right foot: Status: Acute Assessment and Plan: 70 year old woman sent from ID clinic for non healing right DFU with possible abscess suspected Osteomyelitis secondary to diabetic foot wound. Vancomycin, Zosyn, General surgery eval check CT HTN lisinopril afib continue coumadin, rate controlled dm insulin hold metformin history of left MCA/DAVE CVA with right hemparesis and expressive aphasia continue coumadin epilepsy Evelia
[2020-10-16 11:45] LABS: Glucose, Whole Blood 132 mg/dL (60-115)
--- NOTE | 2020-10-16 13:42 | MHC.CM.PN ---
Addendum entered by Estrella Newman 10/16/20 16:28: CT OF RIGHT FOOT IMAGING PER DOCUMENTATIN9 IMPRESSION: (Evidence of osteomyelitis involving the 5th metatarsal head and likely the base of the proximal phalanx. ) case management to continue to follow Original Note: nurse property caretaker note electronic medical record reviewed along with case discussed with staff nurse and surgical p.a. met with patient and with her permission requested that i zaid her daughter montez barone, , patient came in with increased draining non heaing diabetic ulcer with concern for osteomyselisit and or abscess , patient per dtr has not recenlty inured her self , she has been involved with [facility] for nursing for dressing changes . [facility] coumadin clinic and [facility] wound care center , patient lives with her dtr she does require some assistance with bathing and at times dressing her daughter checks her point of cares and sets up her medication fr her , she also takes her to her medical appointment patient uses a walker fr mobility , she has history f cvA WITH ASPHAGIA AND ONE SIDE HEMIPARESIS ,SEIZURES, DIABETIC HTN.
[2020-10-16 16:24] LABS: Glucose, Whole Blood 164 mg/dL (60-115)
[2020-10-16] MEDS: Insulin Lispro 100 UNIT/ML 3 ML VIAL SUBCUT (16:29)
[2020-10-16] MEDS: Warfarin Sodium 3 MG TABLET PO (18:39)
[2020-10-16 19:49] LABS: Glucose, Whole Blood 129 mg/dL (60-115)
--- NOTE | 2020-10-16 22:14 | P.CNID_ITS ---
History of Present Illness Data of Consult Service Date: 10/16/20 Requesting physician: Caden Cutler Primary Care Provider: Mariiln Fink MD [facility] Reason for consult: refractory foot infection She presents to office for followup wound infection lateral right foot She has been on Doxycycline for MRSA and Group B strep infection foot for 6 weeks She has pressure ulcer from pressure,right hemiplegia She has had worsening drainage from wound last week and Wound Clinic was not happy with progress Review of Systems Review of Systems: Yes all other systems are reviewed and are negative Musculoskeletal: Comments: right lateral foot drainage PMFSH Past Medical History Medical History Afib CVA (cerebral vascular accident) Diabetes mellitus Expressive aphasia HTN (hypertension) On Coumadin for atrial fibrillation Right foot infection Seizures Family History Family history: reviewed and not pertinent Surgical History Surgical History H/O shoulder surgery Social History Social History Household Members: Children Housing: House Do you presently have visiting nurse or other home services: No Smoking Status: Never smoker Use of substances other than those prescribed or required for medical reasons: No Currently Displaying Signs/Symptoms of Drug Intoxication Withdrawal: No Have you been hit, kicked, punched, or otherwise hurt by someone within the past year? If so, by whom?: No Do you feel safe in your current relationship?: Yes Is there a partner from a previous relationship who is making you feel unsafe now?: No Are you made to feel afraid or neglected: No Advance Directives: No Advance Directives Information Provided: No Do you have thoughts of harming others: None Do you have a plan to hurt others: No Plan Recently lost weight without trying: No service: No Current occupational status: disabled Meds Allergies Allergy/AdvReac Type Severity Reaction Status Date / Time bupropion [From Wellbutrin] Allergy Intermediate Seizure Verified 10/15/20 15:12 Home Medications Medication Instructions Recorded Confirmed Type levetiracetam 750 tab PO BID 10/15/20 10/15/20 History lisinopril 5 mg PO DAILY 10/15/20 10/16/20 History metformin 500 tab PO BID 10/15/20 10/15/20 History warfarin 3 mg PO DAILY 10/15/20 10/15/20 History Physical Exam Vital Signs: Vital Signs: Last Vital Signs Temp 98.6 F 10/16/20 19:08 Pulse 103 H 10/16/20 19:08 Resp 20 10/16/20 19:08 BP 119/66 10/16/20 19:08 Pulse Ox 96 10/16/20 19:08 Body Mass Index 34.7 Const: General: cooperative HENMT: Head: Yes normal to inspection Mouth: Normal oral and palatal mucosa present Eyes: General: appearance normal, both eyes and all related structures Resp: Effort & Inspection: normal respiratory effort Cardio: Rate: regular rate Rhythm: regular rhythm GI: Palpation (GI): Soft to palpation and nontender Skin: General skin exam: no rashes or lesions noted Neuro: Other: right hemiplegia Extrem: Other: wrapped area,nonhealing right wound Assessment and Plan (1) Osteomyelitis of fifth toe of right foot: Problem details: 70 yo female presented to the ED yesterday for ID clinic for worsening Right lateral foot wound and drainage. Concern for osteomyeltis and abscess. There unfortunately is bone destruction and concern over dissolution and deformity of bone in areas Status: Acute Surgery to remove affected bone as healing unlikely No helpful role for correction IV antibiotics Continue current antibiotics for now Results Labs CBC & Chem 7: 10/16/20 06:21 10/16/20 06:21 Labs: Short CBC 10/16/20 Range/Units 06:21 WBC 6.4 (4.8-10.8) X10*3/uL Hgb 12.3 (12.0-16.0) g/dl Hct 37.5 (37-47) % Plt Count 259 (160-400) X10*3/uL BMP 10/16/20 06:21 Sodium 138 Potassium 5.2 H Chloride 102 Carbon Dioxide 26 BUN 21 H Creatinine 0.87 Calcium 9.2 D Microbiology Microbiology Results: Microbiology 10/15/20 17:00 Blood - Venous Blood Culture - Preliminary No growth after 24 hours. 10/15/20 16:47 Blood - Venous Blood Culture - Preliminary No growth after 24 hours. 10/15/20 21:34 Foot Right Gram Stain - Final 10/15/20 21:34 Foot Right Routine Culture - Preliminary No growth to date.
[2020-10-17] VITALS (7 sets, daily range): BP systolic 115–132; BP diastolic 60–69; PULSE 76–95; RESP 16–20; TEMP 35.7–36.1; O2SAT 97–100
[2020-10-17] MEDS: Piperacillin Sodium/Tazobactam 3.375 GM in 0.9 % Sodium Chloride 50 ML IV ×4 (03:57→20:53)
[2020-10-17 07:12] LABS: MANUAL DIFF FLAG NO
[2020-10-17 07:16] LABS: Basophils Percent Auto 0.2 % (0-2); Eosinophils Absolute Auto 0.2 X10*3/uL (0.0-0.4); Eosinophils Percent Auto 2.5 % (0-4); Hematocrit 37.1 % (37-47); Hemoglobin 12.2 g/dl (12.0-16.0); Imm Gran Abs Auto 0.02 X10*3/uL (0.00-0.03); Imm Gran Pct Auto 0.3 % (0.0-0.4); Lymphocytes Absolute Auto 1.3 X10*3/uL (1.2-4.9); Mean Corpuscular HGB Conc 32.9 g/dl (31.0-35.0); Mean Corpuscular Hemoglobin 31.1 pg (27.0-33.0); Mean Corpuscular Volume 94.6 fL (80-98); Monocytes Absolute Auto 0.5 X10*3/uL (0.1-1.2); Monocytes Percent Auto 8.3 % (2-11); Neutrophils Absolute Auto 4.3 X10*3/uL (2.0-8.3); Neutrophils Percent Auto 67.7 % (45-73); Platelet Count 233 X10*3/uL (160-400); Red Blood Count 3.92 X10*6/uL (4.20-5.50); Red Cell Distribution Width 12.8 % (11.0-16.0); White Blood Count 6.4 X10*3/uL (4.8-10.8)
[2020-10-17 07:34] LABS: Prothrombin Time 23.4 SEC (10.8-13.0)
[2020-10-17 07:42] LABS: Glucose, Whole Blood 137 mg/dL (60-115)
[2020-10-17 07:51] LABS: Anion Gap 13 (12-20); Blood Urea Nitrogen 20 mg/dL (9-16); Calcium 8.8 mg/dL (8.4-10.2); Carbon Dioxide 26 mmol/L (22-29); Chloride 104 mmol/L (96-108); Creatinine Clr Calc Pharmacy 65.7; Estimated Glomerular Filt Rate > 60; Glucose Fasting 140 mg/dL (60-99); Potassium 4.6 mmol/L (3.3-5.1); Sodium 138 mmol/L (135-145)
[2020-10-17] MEDS: levETIRAcetam 250 MG TABLET 750 MG PO ×2 (08:31→20:48)
[2020-10-17] MEDS: 0.9 % Sodium Chloride Flush 3 ML SYRINGE IVFLUSH ×3 (08:31→23:03)
[2020-10-17] MEDS: Nystatin Powder 15 GM BOTTLE 1 APPL TOPICAL ×2 (08:31→20:57)
--- NOTE | 2020-10-17 09:23 | HO.PM.IMPN ---
Subjective Subjective Date of Service: 10/17/20 Interval History: no complaints Cardiovascular Cardiovascular: Reports no additional cardiovascular complaints Gastrointestinal Gastrointestinal: Reports no additional gastrointestinal complaints Physical Exam Vital Signs: Vital Signs: Last Vital Signs Temp 96.9 F 10/17/20 07:28 Pulse 76 10/17/20 08:31 Resp 18 10/17/20 07:28 BP 119/67 10/17/20 08:31 Pulse Ox 98 10/17/20 07:28 Body Mass Index 34.7 General: AO X 3, no acute distress Resp: CTA bilateral CVS: S1,S2,RRR GI: soft, non tender, non distended Neuro: right hemipatesis, expressive aphasia Psych: appropriate affect ext: non healing right DFU Objective Data Current Medications Generic Name Dose Route Start Last Admin Trade Name Freq PRN Reason Stop Dose Admin Acetaminophen 650 mg 10/15/20 20:06 Acetaminophen 325 Mg Tablet PO Q6H PRN Pain, Mild (Pain Scale 1-3) Piperacillin Sod/Tazobactam 50 mls @ 100 mls/hr 10/15/20 22:00 10/17/20 04:33 Sod 3.375 gm/ Sodium Chloride IV Infused Q6H CRISTOPHER Infusion Vancomycin HCl 750 mg/ 275 mls @ 183.333 mls/hr 10/16/20 19:00 10/16/20 20:17 Vancomycin HCl 500 mg/ Sodium IV Infused Chloride Q24H CRISTOPHER Infusion Insulin Human Lispro 0 unit 10/15/20 21:00 10/17/20 07:44 Insulin Lispro 100 Unit/Ml 3 Ml Vial SUBCUT Not Given QIDACHS [facility] Protocol Levetiracetam 750 mg 10/15/20 21:00 10/17/20 08:31 Levetiracetam 250 Mg Tablet PO 750 mg BID CRISTOPHER Administration Lisinopril 5 mg 10/16/20 09:00 10/17/20 08:31 Lisinopril 5 Mg Tablet PO 5 mg DAILY CRISTOPHER Administration Protocol Nystatin 1 appl 10/15/20 22:45 10/17/20 08:31 Nystatin Powder 15 Gm Bottle TOPICAL 1 appl BID CRISTOPHER Administration Protocol Ondansetron HCl 4 mg 10/15/20 20:06 Ondansetron Hcl 4 Mg/2 Ml Vial IVPUSH Q8H PRN Nausea and Vomiting Oxycodone HCl 5 mg 10/15/20 20:10 Oxycodone Hcl Immed Release 5 Mg Tablet PO Q6H PRN Pain, Mild (Pain Scale 1-3) Pharmacy Consult 1 each 10/15/20 20:09 Consult Rx Vancomycin Dosing MISCELLANE DAILY PRN Consult order Sodium Chloride 3 ml 10/16/20 00:00 10/17/20 08:31 0.9 % Sodium Chloride Flush 3 Ml Syringe IVFLUSH 3 ml QSHIFT CRISTOPHER Administration Warfarin Sodium 3 mg 10/16/20 18:00 10/16/20 18:39 Warfarin Sodium 3 Mg Tablet PO 3 mg DAILY@1800 CRISTOPHER Administration Labs CBC & Chem 7: 10/17/20 06:22 10/17/20 06:22 Microbiology Microbiology Results: Microbiology 10/15/20 21:34 Foot Right Gram Stain - Final 10/15/20 21:34 Foot Right Routine Culture - Preliminary Culture in progress. 10/15/20 17:00 Blood - Venous Blood Culture - Preliminary No growth after 24 hours. 10/15/20 16:47 Blood - Venous Blood Culture - Preliminary No growth after 24 hours. Assessment and Plan (1) Osteomyelitis of fifth toe of right foot: Status: Acute Assessment and Plan: 70 year old woman sent from ID clinic for non healing right DFU with possible abscess right lower extremity Osteomyelitis secondary to diabetic foot wound. Vancomycin, Zosyn, for now, unlikely to cure, will need surgical management General surgery appreciated will get vascular eval HTN lisinopril afib continue coumadin, rate controlled dm insulin hold metformin history of left MCA/DAVE CVA with right hemparesis and expressive aphasia continue coumadin epilepsy Evelia
--- NOTE | 2020-10-17 09:51 | P.PNGS_ITS ---
Subjective Subjective Date of Service: 10/17/20 <KAYODE Abbott - Last Filed: 10/17/20 09:58> 10/17/20 <Elodia Corrales MD - Last Filed: 10/17/20 16:43> Patient reports: no new complaints <KAYODE Abbott - Last Filed: 10/17/20 09:58> Interval history: Patient examined this morning. She states that she feels well and has no new complaints. VSS. <KAYODE Abbott - Last Filed: 10/17/20 09:58> Physical Exam Vital Signs: Vital Signs: Last Vital Signs Temp 96.9 F 10/17/20 07:28 Pulse 76 10/17/20 08:31 Resp 18 10/17/20 07:28 BP 119/67 10/17/20 08:31 Pulse Ox 98 10/17/20 07:28 Body Mass Index 34.7 <KAYODE Abbott - Last Filed: 10/17/20 09:58> Const: General: no acute distress <KAYODE Abbott - Last Filed: 10/17/20 09:58> Progress Note: A&P Assessment and plan (1) Osteomyelitis of fifth toe of right foot: Problem details: Improving foot pain and erythema. No longer any drainage noted. Foot CT from yesterday reviewed. <KAYODE Abbott - Last Filed: 10/17/20 09:58> Status: Acute <KAYODE Abbott - Last Filed: 10/17/20 09:58> Assessment and Plan: Continue current care Foot elevation IV ABX Awaiting vascular consult. Wound dressing changed this AM. <KAYODE Abbott - Last Filed: 10/17/20 09:58> . General Surgery Attending - Misty Corrales M.D. Patient was evaluated and examined at the bedside with Mr. Chinmay Middleton PA-C. I confirm above findings and plan as documented. No acute surgical need today. <Elodia Corrales MD - Last Filed: 10/17/20 16:43> Fall Risk Details Current Medications: Current Medications Generic Name Dose Route Start Last Admin Trade Name Freq PRN Reason Stop Dose Admin Acetaminophen 650 mg 10/15/20 20:06 Acetaminophen 325 Mg Tablet PO Q6H PRN Pain, Mild (Pain Scale 1-3) Piperacillin Sod/Tazobactam 50 mls @ 100 mls/hr 10/15/20 22:00 10/17/20 09:45 Sod 3.375 gm/ Sodium Chloride IV 100 mls/hr Q6H CRISTOPHER Administration Vancomycin HCl 750 mg/ 275 mls @ 183.333 mls/hr 10/16/20 19:00 10/16/20 20:17 Vancomycin HCl 500 mg/ Sodium IV Infused Chloride Q24H CRISTOPHER Infusion Insulin Human Lispro 0 unit 10/15/20 21:00 10/17/20 07:44 Insulin Lispro 100 Unit/Ml 3 Ml Vial SUBCUT Not Given QIDACHS [facility] Protocol Levetiracetam 750 mg 10/15/20 21:00 10/17/20 08:31 Levetiracetam 250 Mg Tablet PO 750 mg BID CRISTOPHER Administration Lisinopril 5 mg 10/16/20 09:00 10/17/20 08:31 Lisinopril 5 Mg Tablet PO 5 mg DAILY [facility] Administration Protocol Nystatin 1 appl 10/15/20 22:45 10/17/20 08:31 Nystatin Powder 15 Gm Bottle TOPICAL 1 appl BID [facility] Administration Protocol Ondansetron HCl 4 mg 10/15/20 20:06 Ondansetron Hcl 4 Mg/2 Ml Vial IVPUSH Q8H PRN Nausea and Vomiting Oxycodone HCl 5 mg 10/15/20 20:10 Oxycodone Hcl Immed Release 5 Mg Tablet PO Q6H PRN Pain, Mild (Pain Scale 1-3) Pharmacy Consult 1 each 10/15/20 20:09 Consult Rx Vancomycin Dosing MISCELLANE DAILY PRN Consult order Sodium Chloride 3 ml 10/16/20 00:00 10/17/20 08:31 0.9 % Sodium Chloride Flush 3 Ml Syringe IVFLUSH 3 ml QSHIFT CRISTOPHER Administration Warfarin Sodium 3 mg 10/16/20 18:00 10/16/20 18:39 Warfarin Sodium 3 Mg Tablet PO 3 mg DAILY@1800 CRISTOPHER Administration <KAYODE Abbott - Last Filed: 10/17/20 09:58> Time Spent With Patient Time: Total time spent is greater than 50% in coordination of care (as documented) at patient's floor/unit and/or counseling patient: <KAYODE Abbott - Last Filed: 10/17/20 09:58> Time with patient: less than 15 minutes <Elodia Corrales MD - Last Filed: 10/17/20 16:43>
[2020-10-17 11:27] LABS: Glucose, Whole Blood 195 mg/dL (60-115)
[2020-10-17] MEDS: Insulin Lispro 100 UNIT/ML 3 ML VIAL SUBCUT (12:03)
--- NOTE | 2020-10-17 12:45 | MHC.CM.PN ---
NURSE ENGRAVER PICTURE NOTE ELECTRONIC MEDICAL RECORD REVIEWED ALONG WITH CASE DISCUSSED WITH STAFF NURSE AND SURGICAL P.A. PER DOCUMENTATION HAS RIGHTM LOWER EXTERWEMITY OSTEOMYELITIS SEC. TO DIABETIC FOOT NON HEALING WOUND HAS BEEN ON DOXYCYCLINE FOR MRSA AND GROUP B STREP INFECTION FOR 6 WEEKS HAS PRESSURE ULCER FRMRIGHT HEMIPLEGIA SHE WAS SENT IN BY THE WOUND CLINIC. ) she is on iv vancmycin and iv zosyn, surgery is following and has changed the dressings SUREGRY TO CONTINUE T FOLOW AND REQUESTED VASCULAR CONSULT DISCHARGE PLAN 1. ANTICIPATE RETURN HOME WHERE LARA MANCINI WITH HER DTR(/HCP/ATHLETIC FIELD CUSTODIAN.) [facility] FOR NR[facility] FOR WOUND CARE ,DRESSINGS [facility] TRANSPORTATION HER DAUGHTER
[2020-10-17 16:27] LABS: Glucose, Whole Blood 100 mg/dL (60-115)
[2020-10-17] MEDS: Warfarin Sodium 3 MG TABLET PO (17:23)
[2020-10-17 20:08] LABS: Glucose, Whole Blood 144 mg/dL (60-115)
[2020-10-18] MEDS: Piperacillin Sodium/Tazobactam 3.375 GM in 0.9 % Sodium Chloride 50 ML IV ×3 (03:51→16:32)
[2020-10-18 03:59] VITALS: BP 121/69; PULSE 90; RESP 16; TEMP 35.5; O2SAT 99
[2020-10-18 06:24] LABS: MANUAL DIFF FLAG NO
[2020-10-18 06:33] LABS: Basophils Percent Auto 0.4 % (0-2); Eosinophils Absolute Auto 0.2 X10*3/uL (0.0-0.4); Eosinophils Percent Auto 2.2 % (0-4); Hematocrit 38.8 % (37-47); Hemoglobin 12.8 g/dl (12.0-16.0); Imm Gran Abs Auto 0.01 X10*3/uL (0.00-0.03); Imm Gran Pct Auto 0.1 % (0.0-0.4); Lymphocytes Absolute Auto 1.8 X10*3/uL (1.2-4.9); Lymphocytes Percent Auto 22.1 % (20-40); Mean Corpuscular Hemoglobin 31.1 pg (27.0-33.0); Mean Corpuscular Volume 94.4 fL (80-98); Mean Platelet Volume 8.9 fL (9.4-12.3); Monocytes Absolute Auto 0.5 X10*3/uL (0.1-1.2); Monocytes Percent Auto 6.7 % (2-11); Neutrophils Absolute Auto 5.6 X10*3/uL (2.0-8.3); Neutrophils Percent Auto 68.5 % (45-73); Platelet Count 262 X10*3/uL (160-400); Red Blood Count 4.11 X10*6/uL (4.20-5.50); Red Cell Distribution Width 12.8 % (11.0-16.0); White Blood Count 8.1 X10*3/uL (4.8-10.8)
[2020-10-18 06:46] LABS: INTERNATIONAL NORM RATIO 2.5 (0.9-1.1); Prothrombin Time 30.2 SEC (10.8-13.0)
[2020-10-18 06:47] LABS: Anion Gap 15 (12-20); Blood Urea Nitrogen 16 mg/dL (9-16); Calcium 9.2 mg/dL (8.4-10.2); Carbon Dioxide 24 mmol/L (22-29); Chloride 103 mmol/L (96-108); Creatinine Clr Calc Pharmacy 66.5; Estimated Glomerular Filt Rate > 60; Glucose Fasting 158 mg/dL (60-99); Potassium 4.6 mmol/L (3.3-5.1); Sodium 137 mmol/L (135-145)
[2020-10-18 07:40] LABS: Glucose, Whole Blood 194 mg/dL (60-115)
[2020-10-18 08:00] VITALS: BP 115/64; PULSE 92; RESP 18; TEMP 36.1; O2SAT 99
--- NOTE | 2020-10-18 08:10 | PM.PNGS ---
Subjective Subjective Date of Service: 10/18/20 Interval history: Says she feels well Denies pain Does not appear oriented however, with a flat affect Physical Exam Vital Signs: Vital Signs: Last Vital Signs Temp 96 F L 10/18/20 03:59 Pulse 90 10/18/20 03:59 Resp 16 10/18/20 03:59 BP 121/69 10/18/20 03:59 Pulse Ox 99 10/18/20 03:59 Body Mass Index 34.7 Chemistry 10/15/20 10/16/20 10/17/20 16:47 06:21 06:22 Sodium 135 138 138 Potassium 4.6 5.2 H 4.6 Carbon Dioxide 24 26 26 BUN 26 H 21 H 20 H Creatinine 0.79 0.87 0.80 Calcium 9.8 9.2 D 8.8 10/18/20 06:15 Sodium 137 Potassium 4.6 Carbon Dioxide 24 BUN 16 Creatinine 0.79 Calcium 9.2 Hematology 10/15/20 10/16/20 10/17/20 16:47 06:21 06:22 WBC 7.7 6.4 6.4 Hgb 12.5 12.3 12.2 Plt Count 264 259 233 10/18/20 06:15 WBC 8.1 Hgb 12.8 Plt Count 262 Urinalysis 10/15/20 19:03 Urine Color YELLOW Urine Appearance CLEAR Urine pH 5.5 Ur Specific Gravit y 1.010 Urine Protein NEG Urine Glucose (UA) NEG Urine Ketones NEG Urine Blood NEG Urine Nitrite NEG Ur Leukocyte Iram ase NEG Const: Other: Sitting up on chair General: comfortable and no acute distress Resp: Effort & Inspection: normal respiratory effort Cardio: Rhythm: regular rhythm GI: Palpation (GI): Soft to palpation and nontender Extrem: Other: Right foot with small ulcer laterally, dry no cellulitis, no pus Progress Note: A&P Assessment and plan (1) Osteomyelitis of fifth toe of right foot: Status: Acute Assessment and Plan: Ulcer dry without cellulitis I have changed dressings - wrapped the foot with Tiff roll Prolonged IV antibiotic treatment with PICC line versus amputation of toe Patient at this time says she does not want amputation Continue wound care- dry dressings Fall Risk Details Current Medications: Current Medications Generic Name Dose Route Start Last Admin Trade Name Freq PRN Reason Stop Dose Admin Acetaminophen 650 mg 10/15/20 20:06 Acetaminophen 325 Mg Tablet PO Q6H PRN Pain, Mild (Pain Scale 1-3) Piperacillin Sod/Tazobactam 50 mls @ 100 mls/hr 10/15/20 22:00 10/18/20 04:30 Sod 3.375 gm/ Sodium Chloride IV Infused Q6H [facility] Infusion Vancomycin HCl 750 mg/ 275 mls @ 183.333 mls/hr 10/16/20 19:00 10/17/20 20:10 Vancomycin HCl 500 mg/ Sodium IV Infused Chloride Q24H [facility] Infusion Insulin Human Lispro 0 unit 10/15/20 21:00 10/17/20 20:58 Insulin Lispro 100 Unit/Ml 3 Ml Vial SUBCUT Not Given QIDACHS [facility] Protocol Levetiracetam 750 mg 10/15/20 21:00 10/17/20 20:48 Levetiracetam 250 Mg Tablet PO 750 mg BID [facility] Administration Lisinopril 5 mg 10/16/20 09:00 10/17/20 08:31 Lisinopril 5 Mg Tablet PO 5 mg DAILY [facility] Administration Protocol Nystatin 1 appl 10/15/20 22:45 10/17/20 20:57 Nystatin Powder 15 Gm Bottle TOPICAL 1 appl BID [facility] Administration Protocol Ondansetron HCl 4 mg 10/15/20 20:06 Ondansetron Hcl 4 Mg/2 Ml Vial IVPUSH Q8H PRN Nausea and Vomiting Oxycodone HCl 5 mg 10/15/20 20:10 Oxycodone Hcl Immed Release 5 Mg Tablet PO Q6H PRN Pain, Mild (Pain Scale 1-3) Pharmacy Consult 1 each 10/15/20 20:09 Consult Rx Vancomycin Dosing MISCELLANE DAILY PRN Consult order Sodium Chloride 3 ml 10/16/20 00:00 10/17/20 23:03 0.9 % Sodium Chloride Flush 3 Ml Syringe IVFLUSH 3 ml QSHIFT [facility] Administration Warfarin Sodium 3 mg 10/16/20 18:00 10/17/20 17:23 Warfarin Sodium 3 Mg Tablet PO 3 mg DAILY@1800 [facility] Administration Time Spent With Patient Time: Total time spent is greater than 50% in coordination of care (as documented) at patient's floor/unit and/or counseling patient: Time with patient: 15 - 24 minutes
[2020-10-18] MEDS: levETIRAcetam 250 MG TABLET 750 MG PO ×2 (08:41→21:13)
[2020-10-18] MEDS: Insulin Lispro 100 UNIT/ML 3 ML VIAL SUBCUT ×3 (08:41→21:12)
[2020-10-18] MEDS: 0.9 % Sodium Chloride Flush 3 ML SYRINGE IVFLUSH ×2 (08:42→16:32)
[2020-10-18] MEDS: Nystatin Powder 15 GM BOTTLE 1 APPL TOPICAL ×2 (08:48→21:38)
[2020-10-18 09:42] LABS: Estimated Average Glucose 117 mg/dL; Hemoglobin A1c % 5.7 %
[2020-10-18 11:14] VITALS: BP 107/58; PULSE 93; RESP 17; TEMP 36.2; O2SAT 100
[2020-10-18 11:21] LABS: Glucose, Whole Blood 180 mg/dL (60-115)
--- NOTE | 2020-10-18 12:02 | P.CONGS_ITS ---
History of Present Illness Consult details Consult date: 10/18/20 Reason for consult: other (Nonhealing leg ulcer) Narrative: Very pleasant 70-year-old diabetic female presents for chronic nonhealing right foot ulcer. It has been present for some time. She had been seen and examined in the emergency room. She was subsequently admitted for IV antibiotics. She now presents to us for vascular evaluation. Of note she is on Coumadin for AFib. Review of Systems Review of Systems: Yes all other systems are reviewed and are negative Constitutional: Constitutional: Reports no additional constitutional complaints ENT: Reports Normal hearing present Cardiovascular: Cardiovascular: Denies chest pain, Denies chest pain at rest, Denies chest pain with activity and Denies pedal edema Respiratory: Respiratory: Denies cough Gastrointestinal: Gastrointestinal: Denies abdominal pain Musculoskeletal: Musculoskeletal: Denies abnormal gait, Denies muscle cramps and Denies radiating pain into limb Integumentary/Breasts: Skin/Breast: Denies skin ulcer and Denies wounds Neurologic: Reports Normal hearing present and Denies abnormal gait Psychiatric: Psychiatric: Reports no additional psychiatric complaints PMFSH Past Medical History Medical History Afib CVA (cerebral vascular accident) Diabetes mellitus Expressive aphasia HTN (hypertension) On Coumadin for atrial fibrillation Right foot infection Seizures Family History Family history: reviewed and not pertinent Surgical History Surgical History H/O shoulder surgery Social History Social History Household Members: Children Housing: House Do you presently have visiting nurse or other home services: No Smoking Status: Never smoker Use of substances other than those prescribed or required for medical reasons: No Currently Displaying Signs/Symptoms of Drug Intoxication Withdrawal: No Have you been hit, kicked, punched, or otherwise hurt by someone within the past year? If so, by whom?: No Do you feel safe in your current relationship?: Yes Is there a partner from a previous relationship who is making you feel unsafe now?: No Are you made to feel afraid or neglected: No Advance Directives: No Advance Directives Information Provided: No Do you have thoughts of harming others: None Do you have a plan to hurt others: No Plan Recently lost weight without trying: No service: No Current occupational status: disabled Meds Allergies Allergy/AdvReac Type Severity Reaction Status Date / Time bupropion [From Wellbutrin] Allergy Intermediate Seizure Verified 10/15/20 15:12 Home Medications Medication Instructions Recorded Confirmed Type levetiracetam 750 tab PO BID 10/15/20 10/15/20 History lisinopril 5 mg PO DAILY 10/15/20 10/16/20 History metformin 500 tab PO BID 10/15/20 10/15/20 History warfarin 3 mg PO DAILY 10/15/20 10/15/20 History Physical Exam Vital Signs: Vital Signs: Last Vital Signs Temp 97.2 F 10/18/20 11:14 Pulse 93 10/18/20 11:14 Resp 17 10/18/20 11:14 BP 107/58 L 10/18/20 11:14 Pulse Ox 100 10/18/20 11:14 Body Mass Index 34.7 Const: General: cooperative, healthy appearing and no acute distress Orientation/consciousness: oriented to person, oriented to place and oriented to time HENMT: Head: Yes normal to inspection Neck: Carotids: no bruits Chest: Chest palpation & inspection: normal inspection of the chest Resp: Effort & Inspection: normal respiratory effort and able to speak in complete sentences Auscultation: clear to auscultation bilaterally Cardio: Rate: regular rate Heart sounds: S1 normal heart sound present and S2 normal heart sound present Peripheral pulses: dorsalis pedis present (Bilateral DP signals only) GI: Inspection: Yes normal to inspection Skin: General skin exam: no rashes or lesions noted Wounds: wounds noted (Right 5th toe) Neuro: General: oriented to person, oriented to place, oriented to time and CN's II-XI intact bilaterally Cranial nerves: Yes Normal hearing present Extrem: General: Yes normal to inspection, Yes full ROM and Yes no clubbing, cyanosis or edema Psych: Appearance: grossly normal and well kempt Speech and movement: Normal speech and movement present Affect: normal affect Results Labs Result diagrams: 10/18/20 06:15 10/18/20 06:15 Labs: Abnormal lab results 10/17/20 10/18/20 10/18/20 Range/Units 19:54 06:15 06:15 RBC 4.11 L (4.20-5.50) X10*6/uL MPV 8.9 L (9.4-12.3) fL PT 30.2 H D (10.8-13.0) SEC INR 2.5 H (0.9-1.1) POC Glucose 144 H (60-115) mg/dL Fasting Glucose (60-99) mg/dL 10/18/20 10/18/20 10/18/20 Range/Units 06:15 07:35 11:16 RBC (4.20-5.50) X10*6/uL MPV (9.4-12.3) fL PT (10.8-13.0) SEC INR (0.9-1.1) POC Glucose 194 H 180 H (60-115) mg/dL Fasting Glucose 158 H (60-99) mg/dL Short CBC 10/18/20 Range/Units 06:15 WBC 8.1 (4.8-10.8) X10*3/uL Hgb 12.8 (12.0-16.0) g/dl Hct 38.8 (37-47) % Plt Count 262 (160-400) X10*3/uL BMP 10/18/20 06:15 Sodium 137 Potassium 4.6 Chloride 103 Carbon Dioxide 24 BUN 16 Creatinine 0.79 Calcium 9.2 Urine 10/15/20 Range/Units 19:03 Urine Color YELLOW Urine Appearance CLEAR Urine pH 5.5 (5.0-8.0) Ur Specific [place] 1.010 (1.005-1.025) Urine Protein NEG (NEG-TRACE) MG/DL Urine Glucose (UA) NEG (NEG) MG/DL All other labs normal. Assessment and Plan (1) PVD (peripheral vascular disease): Status: Acute Unclear etiology of right lower extremity ulcer. May be multifactorial inclusive of diabetes infection and peripheral vascular disease. At the current time she is on antibiotics. I have taken the liberty of ordering noninvasive arterial testing. We will continue to monitor this patient with you. Should intervention be required Coumadin will need to be reversed. We will follow up with you after testing. Thank you for allowing us to participate in her care.
[2020-10-18 14:56] VITALS: BMI 34.7
[2020-10-18 16:45] VITALS: BP 117/65; PULSE 94; RESP 14; TEMP 35.6; O2SAT 99
[2020-10-18 16:55] LABS: Glucose, Whole Blood 116 mg/dL (60-115)
[2020-10-18] MEDS: Warfarin Sodium 3 MG TABLET PO (17:25)
--- NOTE | 2020-10-18 17:44 | P.PNIM_ITS ---
Subjective Subjective Date of Service: 10/18/20 Interval History: willing to consider surgery denies fever/pain Physical Exam Vital Signs: Vital Signs: Last Vital Signs Temp 96.1 F L 10/18/20 16:45 Pulse 94 10/18/20 16:45 Resp 14 10/18/20 16:45 BP 117/65 10/18/20 16:45 Pulse Ox 99 10/18/20 16:45 Body Mass Index 34.7 Gen: in no acute distress HEENT: sclera anicteric, moist mucus membranes Neck: supple Lungs: clear to auscultation bilaterally Heart: regular rate and rhythm, no murmurs Abd: soft, non-tender, non-distended Ext: no edema Skin: R 5th toe ulcer Neuro: alert and oriented x3, some degree of expressive aphasia, R hemiparesis Psych: appropriate affect Objective Data Current Medications Generic Name Dose Route Start Last Admin Trade Name Freq PRN Reason Stop Dose Admin Acetaminophen 650 mg 10/15/20 20:06 Acetaminophen 325 Mg Tablet PO Q6H PRN Pain, Mild (Pain Scale 1-3) Piperacillin Sod/Tazobactam 50 mls @ 100 mls/hr 10/15/20 22:00 10/18/20 17:27 Sod 3.375 gm/ Sodium Chloride IV Infused Q6H [facility] Infusion Vancomycin HCl 750 mg/ 275 mls @ 183.333 mls/hr 10/16/20 19:00 10/17/20 20:10 Vancomycin HCl 500 mg/ Sodium IV Infused Chloride Q24H [facility] Infusion Insulin Human Lispro 0 unit 10/15/20 21:00 10/18/20 17:00 Insulin Lispro 100 Unit/Ml 3 Ml Vial SUBCUT Not Given QIDACHS [facility] Protocol Levetiracetam 750 mg 10/15/20 21:00 10/18/20 08:41 Levetiracetam 250 Mg Tablet PO 750 mg BID [facility] Administration Lisinopril 5 mg 10/16/20 09:00 10/18/20 08:42 Lisinopril 5 Mg Tablet PO 5 mg DAILY [facility] Administration Protocol Nystatin 1 appl 10/15/20 22:45 10/18/20 08:48 Nystatin Powder 15 Gm Bottle TOPICAL 1 appl BID [facility] Administration Protocol Ondansetron HCl 4 mg 10/15/20 20:06 Ondansetron Hcl 4 Mg/2 Ml Vial IVPUSH Q8H PRN Nausea and Vomiting Oxycodone HCl 5 mg 10/15/20 20:10 Oxycodone Hcl Immed Release 5 Mg Tablet PO Q6H PRN Pain, Mild (Pain Scale 1-3) Pharmacy Consult 1 each 10/15/20 20:09 Consult Rx Vancomycin Dosing MISCELLANE DAILY PRN Consult order Sodium Chloride 3 ml 10/16/20 00:00 10/18/20 16:32 0.9 % Sodium Chloride Flush 3 Ml Syringe IVFLUSH 3 ml QSHIFT [facility] Administration Warfarin Sodium 3 mg 10/16/20 18:00 10/18/20 17:25 Warfarin Sodium 3 Mg Tablet PO 3 mg DAILY@1800 [facility] Administration Labs CBC & Chem 7: 10/18/20 06:15 10/18/20 06:15 Labs: Laboratory Results - last 24 hr 10/17/20 10/18/20 10/18/20 19:54 06:15 06:15 WBC 8.1 RBC 4.11 L Hgb 12.8 Hct 38.8 MCV 94.4 MCH 31.1 MCHC 33.0 RDW 12.8 Plt Count 262 MPV 8.9 L Immature Gran % (Auto) 0.1 Neut % (Auto) 68.5 Lymph % (Auto) 22.1 [place] % (Auto) 6.7 Eos % (Auto) 2.2 Baso % (Auto) 0.4 Lymph # (Auto) 1.8 [place] # (Auto) 0.5 Eos # (Auto) 0.2 Baso # (Auto) 0.0 Abs Immat Gran (auto) 0.01 Absolute Neuts (auto) 5.6 Absolute Nucleated RBC 0.000 Nucleated RBC % (auto) 0.0 PT 30.2 H D INR 2.5 H Sodium Potassium Chloride Carbon Dioxide Anion Gap BUN Creatinine Estim Creat Clear Calc Estimated GFR POC Glucose 144 H Fasting Glucose Estimat Average Glucose Hemoglobin A1c % Calcium 10/18/20 10/18/20 10/18/20 06:15 06:15 07:35 WBC RBC Hgb Hct MCV MCH MCHC RDW Plt Count MPV Immature Gran % (Auto) Neut % (Auto) Lymph % (Auto) [place] % (Auto) Eos % (Auto) Baso % (Auto) Lymph # (Auto) [place] # (Auto) Eos # (Auto) Baso # (Auto) Abs Immat Gran (auto) Absolute Neuts (auto) Absolute Nucleated RBC Nucleated RBC % (auto) PT INR Sodium 137 Potassium 4.6 Chloride 103 Carbon Dioxide 24 Anion Gap 15 BUN 16 Creatinine 0.79 Estim Creat Clear Calc 66.5 Estimated GFR > 60 POC Glucose 194 H Fasting Glucose 158 H Estimat Average Glucose 117 Hemoglobin A1c % 5.7 Calcium 9.2 10/18/20 10/18/20 11:16 16:49 WBC RBC Hgb Hct MCV MCH MCHC RDW Plt Count MPV Immature Gran % (Auto) Neut % (Auto) Lymph % (Auto) [place] % (Auto) Eos % (Auto) Baso % (Auto) Lymph # (Auto) [place] # (Auto) Eos # (Auto) Baso # (Auto) Abs Immat Gran (auto) Absolute Neuts (auto) Absolute Nucleated RBC Nucleated RBC % (auto) PT INR Sodium Potassium Chloride Carbon Dioxide Anion Gap BUN Creatinine Estim Creat Clear Calc Estimated GFR POC Glucose 180 H 116 H Fasting Glucose Estimat Average Glucose Hemoglobin A1c % Calcium Impressions Duplex Scan Lower Extremity Artery 10/18/20 08:57 IMPRESSION: 1. Normal bilateral ankle-brachial indices. 2. No focal hemodynamically significant velocity shift is seen in the inflow or outflow vessels. 3. The left posterior tibial artery is not visualized and may be occluded. The right posterior tibial artery velocity is very low and the waveform is biphasic. This raises the possibility of small vessel disease in this patient. Abd [id number] 10/18/20 16:03 IMPRESSION: 1. Normal bilateral ankle-brachial indices. 2. No focal hemodynamically significant velocity shift is seen in the inflow or outflow vessels. 3. The left posterior tibial artery is not visualized and may be occluded. The right posterior tibial artery velocity is very low and the waveform is biphasic. This raises the possibility of small vessel disease in this patient. Microbiology Microbiology Results: Microbiology 10/15/20 21:34 Foot Right Gram Stain - Final 10/15/20 21:34 Foot Right Routine Culture - Final Enterococcus faecalis 10/15/20 17:00 Blood - Venous Blood Culture - Preliminary No growth after 48 hours. 10/15/20 16:47 Blood - Venous Blood Culture - Preliminary No growth after 48 hours. Assessment and Plan (1) Osteomyelitis of fifth toe of right foot: Status: Acute Assessment and Plan: hospital d#4 70yo F with DM2 sent in from clinic for non-healing R foot ulcer, found to have osteomyelitis # R foot osteomyelitis - on vanco + pip/jose d#4 - will need amputation, Gen + Vasc Surg following # HTN - continue lisinopril # AF - INR therapeutic on warfarin. rate-controlled # DM2 - correction-dose lispro. 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
[2020-10-18 19:10] VITALS: BP 105/58; PULSE 99; RESP 15; TEMP 35.6; O2SAT 99
[2020-10-18 19:39] LABS: Vancomycin Trough 10.2 mcg/mL (10.0-20.0)
[2020-10-18 20:24] LABS: Glucose, Whole Blood 189 mg/dL (60-115)
[2020-10-18] MEDS: vancomycin HCL 750 MG in 0.9 % Sodium Chloride 250 ML 265 MG IV (22:13)
[2020-10-18 23:23] VITALS: BP 124/68; PULSE 96; RESP 19; TEMP 36.4; O2SAT 98
[2020-10-19] MEDS: Piperacillin Sodium/Tazobactam 3.375 GM in 0.9 % Sodium Chloride 50 ML IV ×5 (00:32→23:31)
[2020-10-19] MEDS: 0.9 % Sodium Chloride Flush 3 ML SYRINGE IVFLUSH ×4 (01:33→21:39)
[2020-10-19 03:48] VITALS: BP 110/69; PULSE 78; RESP 19; TEMP 36.4; O2SAT 96
[2020-10-19 06:20] LABS: MANUAL DIFF FLAG NO
[2020-10-19 06:27] LABS: Basophils Percent Auto 0.4 % (0-2); Eosinophils Absolute Auto 0.2 X10*3/uL (0.0-0.4); Eosinophils Percent Auto 2.6 % (0-4); Hematocrit 38.4 % (37-47); Hemoglobin 12.5 g/dl (12.0-16.0); Imm Gran Abs Auto 0.04 X10*3/uL (0.00-0.03); Imm Gran Pct Auto 0.5 % (0.0-0.4); Lymphocytes Absolute Auto 1.9 X10*3/uL (1.2-4.9); Lymphocytes Percent Auto 24.4 % (20-40); Mean Corpuscular HGB Conc 32.6 g/dl (31.0-35.0); Mean Corpuscular Hemoglobin 30.9 pg (27.0-33.0); Mean Corpuscular Volume 94.8 fL (80-98); Mean Platelet Volume 8.9 fL (9.4-12.3); Monocytes Absolute Auto 0.6 X10*3/uL (0.1-1.2); Monocytes Percent Auto 7.5 % (2-11); Neutrophils Percent Auto 64.6 % (45-73); Platelet Count 258 X10*3/uL (160-400); Red Blood Count 4.05 X10*6/uL (4.20-5.50); Red Cell Distribution Width 12.9 % (11.0-16.0); White Blood Count 7.7 X10*3/uL (4.8-10.8)
[2020-10-19 06:52] LABS: Anion Gap 15 (12-20); Blood Urea Nitrogen 20 mg/dL (9-16); C Reactive Protein 1.54 mg/dL (< or = 0.50); Carbon Dioxide 25 mmol/L (22-29); Chloride 102 mmol/L (96-108); Creatinine Clr Calc Pharmacy 64.1; Estimated Glomerular Filt Rate > 60; Glucose Random 137 mg/dL (60-115); Potassium 4.8 mmol/L (3.3-5.1); Sodium 137 mmol/L (135-145)
[2020-10-19 07:01] LABS: INTERNATIONAL NORM RATIO 2.5 (0.9-1.1); Prothrombin Time 30.5 SEC (10.8-13.0)
[2020-10-19 07:50] LABS: Glucose, Whole Blood 125 mg/dL (60-115)
[2020-10-19 08:00] VITALS: BP 117/63; PULSE 81; RESP 16; TEMP 36.2; O2SAT 100
[2020-10-19] MEDS: levETIRAcetam 250 MG TABLET 750 MG PO ×2 (08:20→21:30)
[2020-10-19] MEDS: vancomycin HCL 750 MG in 0.9 % Sodium Chloride 250 ML 265 MG IV ×2 (08:21→21:30)
[2020-10-19] MEDS: Nystatin Powder 15 GM BOTTLE 1 APPL TOPICAL ×2 (08:29→21:33)
[2020-10-19 11:28] LABS: Glucose, Whole Blood 182 mg/dL (60-115)
[2020-10-19 11:30] VITALS: BP 105/51; PULSE 95; RESP 15; TEMP 36.5; O2SAT 98
[2020-10-19] MEDS: Insulin Lispro 100 UNIT/ML 3 ML VIAL SUBCUT ×3 (11:42→21:33)
--- NOTE | 2020-10-19 13:03 | P.PNGS_ITS ---
Subjective Subjective Date of Service: 10/19/20 Interval history: Denies pain No events reported No fever Physical Exam Vital Signs: Vital Signs: Last Vital Signs Temp 97.7 F 10/19/20 11:30 Pulse 95 10/19/20 11:30 Resp 15 10/19/20 11:30 BP 105/51 L 10/19/20 11:30 Pulse Ox 98 10/19/20 11:30 Body Mass Index 34.7 Chemistry 10/17/20 10/18/20 10/19/20 06:22 06:15 06:05 Sodium 138 137 137 Potassium 4.6 4.6 4.8 Carbon Dioxide 26 24 25 BUN 20 H 16 20 H Creatinine 0.80 0.79 0.82 Calcium 8.8 9.2 9.0 Hematology 10/17/20 10/18/20 10/19/20 06:22 06:15 06:05 WBC 6.4 8.1 7.7 Hgb 12.2 12.8 12.5 Plt Count 233 262 258 Const: Other: Appears comfortable, answering questions but not totally o riented Resp: Effort & Inspection: normal respiratory effort Cardio: Rate: regular rate GI: Palpation (GI): Soft to palpation and nontender Extrem: Other: Right foot with ulcer laterally on the forefoot area at the base of 5th toe, some scanty drainage, no cellulitis, no fluctuance Progress Note: A&P Assessment and plan (1) Osteomyelitis of fifth toe of right foot: Status: Acute Assessment and Plan: Nonseptic looking Osteomyelitis of the distal 5th metatarsal IV antibiotics by PICC line versus amputation Patient unclear about her preference Will do amputation or if she decides to proceed ABIs normal Fall Risk Details Current Medications: Current Medications Generic Name Dose Route Start Last Admin Trade Name Freq PRN Reason Stop Dose Admin Acetaminophen 650 mg 10/15/20 20:06 Acetaminophen 325 Mg Tablet PO Q6H PRN Pain, Mild (Pain Scale 1-3) Piperacillin Sod/Tazobactam 50 mls @ 100 mls/hr 10/15/20 22:00 10/19/20 12:30 Sod 3.375 gm/ Sodium Chloride IV 100 mls/hr Q6H [facility] Administration Vancomycin HCl 750 mg/ Sodium 265 mls @ 265 mls/hr 10/18/20 21:00 10/19/20 09:50 Chloride IV Infused Q12H [facility] Infusion Insulin Human Lispro 0 unit 10/15/20 21:00 10/19/20 11:42 Insulin Lispro 100 Unit/Ml 3 Ml Vial SUBCUT 2 unit QIDACHS [facility] Administration Protocol Levetiracetam 750 mg 10/15/20 21:00 10/19/20 08:20 Levetiracetam 250 Mg Tablet PO 750 mg BID [facility] Administration Lisinopril 5 mg 10/16/20 09:00 10/19/20 08:20 Lisinopril 5 Mg Tablet PO 5 mg DAILY [facility] Administration Protocol Nystatin 1 appl 10/15/20 22:45 10/19/20 08:29 Nystatin Powder 15 Gm Bottle TOPICAL 1 appl BID [facility] Administration Protocol Ondansetron HCl 4 mg 10/15/20 20:06 Ondansetron Hcl 4 Mg/2 Ml Vial IVPUSH Q8H PRN Nausea and Vomiting Oxycodone HCl 5 mg 10/15/20 20:10 Oxycodone Hcl Immed Release 5 Mg Tablet PO Q6H PRN Pain, Mild (Pain Scale 1-3) Pharmacy Consult 1 each 10/15/20 20:09 Consult Rx Vancomycin Dosing MISCELLANE DAILY PRN Consult order Sodium Chloride 3 ml 10/16/20 00:00 10/19/20 08:27 0.9 % Sodium Chloride Flush 3 Ml Syringe IVFLUSH 3 ml QSHIFT [facility] Administration Warfarin Sodium 3 mg 10/16/20 18:00 10/18/20 17:25 Warfarin Sodium 3 Mg Tablet PO 3 mg DAILY@1800 [facility] Administration Time Spent With Patient Time: Total time spent is greater than 50% in coordination of care (as documented) at patient's floor/unit and/or counseling patient: Time with patient: 15 - 24 minutes
--- NOTE | 2020-10-19 15:12 | HO.PM.IMPN ---
Subjective Subjective Date of Service: 10/19/20 Interval History: no complaints; however, refusing surgery Physical Exam Vital Signs: Vital Signs: Last Vital Signs Temp 97.7 F 10/19/20 11:30 Pulse 95 10/19/20 11:30 Resp 15 10/19/20 11:30 BP 105/51 L 10/19/20 11:30 Pulse Ox 98 10/19/20 11:30 Body Mass Index 34.7 Gen: in no acute distress HEENT: sclera anicteric, moist mucus membranes Neck: supple Lungs: clear to auscultation bilaterally Heart: regular rate and rhythm, no murmurs Abd: soft, non-tender, non-distended Ext: no edema Skin: R 5th toe ulcer no purulent drainage Neuro: alert and oriented x3, some degree of expressive aphasia, R hemiparesis Psych: appropriate affect Objective Data Current Medications Generic Name Dose Route Start Last Admin Trade Name Freq PRN Reason Stop Dose Admin Acetaminophen 650 mg 10/15/20 20:06 Acetaminophen 325 Mg Tablet PO Q6H PRN Pain, Mild (Pain Scale 1-3) Piperacillin Sod/Tazobactam 50 mls @ 100 mls/hr 10/15/20 22:00 10/19/20 13:10 Sod 3.375 gm/ Sodium Chloride IV Infused Q6H CRISTOPHER Infusion Vancomycin HCl 750 mg/ Sodium 265 mls @ 265 mls/hr 10/18/20 21:00 10/19/20 09:50 Chloride IV Infused Q12H CRISTOPHER Infusion Insulin Human Lispro 0 unit 10/15/20 21:00 10/19/20 11:42 Insulin Lispro 100 Unit/Ml 3 Ml Vial SUBCUT 2 unit QIDACHS CRISTOPHER Administration Protocol Levetiracetam 750 mg 10/15/20 21:00 10/19/20 08:20 Levetiracetam 250 Mg Tablet PO 750 mg BID CRISTOPHER Administration Lisinopril 5 mg 10/16/20 09:00 10/19/20 08:20 Lisinopril 5 Mg Tablet PO 5 mg DAILY CRISTOPHER Administration Protocol Nystatin 1 appl 10/15/20 22:45 10/19/20 08:29 Nystatin Powder 15 Gm Bottle TOPICAL 1 appl BID CRISTOPHER Administration Protocol Ondansetron HCl 4 mg 10/15/20 20:06 Ondansetron Hcl 4 Mg/2 Ml Vial IVPUSH Q8H PRN Nausea and Vomiting Oxycodone HCl 5 mg 10/15/20 20:10 Oxycodone Hcl Immed Release 5 Mg Tablet PO Q6H PRN Pain, Mild (Pain Scale 1-3) Pharmacy Consult 1 each 10/15/20 20:09 Consult Rx Vancomycin Dosing MISCELLANE DAILY PRN Consult order Sodium Chloride 3 ml 10/16/20 00:00 10/19/20 08:27 0.9 % Sodium Chloride Flush 3 Ml Syringe IVFLUSH 3 ml QSHIFT CRISTOPHER Administration Warfarin Sodium 3 mg 10/16/20 18:00 10/18/20 17:25 Warfarin Sodium 3 Mg Tablet PO 3 mg DAILY@1800 C[facility]STOPHER Administration Labs CBC & Chem 7: 10/19/20 06:05 10/19/20 06:05 Labs: Laboratory Results - last 24 hr 10/18/20 10/18/20 10/18/20 16:49 18:33 20:19 WBC RBC Hgb Hct MCV MCH MCHC RDW Plt Count MPV Immature Gran % (Auto) Neut % (Auto) Lymph % (Auto) [place] % (Auto) Eos % (Auto) Baso % (Auto) Lymph # (Auto) [place] # (Auto) Eos # (Auto) Baso # (Auto) Abs Immat Gran (auto) Absolute Neuts (auto) Absolute Nucleated RBC Nucleated RBC % (auto) PT INR Sodium Potassium Chloride Carbon Dioxide Anion Gap BUN Creatinine Estim Creat Clear Calc Estimated GFR POC Glucose 116 H 189 H Random Glucose Calcium C-Reactive Protein Vancomycin Trough 10.2 10/19/20 10/19/20 10/19/20 06:05 06:05 06:05 WBC 7.7 RBC 4.05 L Hgb 12.5 Hct 38.4 MCV 94.8 MCH 30.9 MCHC 32.6 RDW 12.9 Plt Count 258 MPV 8.9 L Immature Gran % (Auto) 0.5 H Neut % (Auto) 64.6 Lymph % (Auto) 24.4 [place] % (Auto) 7.5 Eos % (Auto) 2.6 Baso % (Auto) 0.4 Lymph # (Auto) 1.9 [place] # (Auto) 0.6 Eos # (Auto) 0.2 Baso # (Auto) 0.0 Abs Immat Gran (auto) 0.04 H Absolute Neuts (auto) 5.0 Absolute Nucleated RBC 0.000 Nucleated RBC % (auto) 0.0 PT 30.5 H INR 2.5 H Sodium 137 Potassium 4.8 Chloride 102 Carbon Dioxide 25 Anion Gap 15 BUN 20 H Creatinine 0.82 Estim Creat Clear Calc 64.1 Estimated GFR > 60 POC Glucose Random Glucose 137 H Calcium 9.0 C-Reactive Protein 1.54 H Vancomycin Trough 10/19/20 10/19/20 07:32 11:24 WBC RBC Hgb Hct MCV MCH MCHC RDW Plt Count MPV Immature Gran % (Auto) Neut % (Auto) Lymph % (Auto) [place] % (Auto) Eos % (Auto) Baso % (Auto) Lymph # (Auto) [place] # (Auto) Eos # (Auto) Baso # (Auto) Abs Immat Gran (auto) Absolute Neuts (auto) Absolute Nucleated RBC Nucleated RBC % (auto) PT INR Sodium Potassium Chloride Carbon Dioxide Anion Gap BUN Creatinine Estim Creat Clear Calc Estimated GFR POC Glucose 125 H 182 H Random Glucose Calcium C-Reactive Protein Vancomycin Trough Impressions Duplex Scan Lower Extremity Artery 10/18/20 08:57 IMPRESSION: 1. Normal bilateral ankle-brachial indices. 2. No focal hemodynamically significant velocity shift is seen in the inflow or outflow vessels. 3. The left posterior tibial artery is not visualized and may be occluded. The right posterior tibial artery velocity is very low and the waveform is biphasic. This raises the possibility of small vessel disease in this patient. Abd US Ao-IVC-BPG 10/18/20 16:03 IMPRESSION: 1. Normal bilateral ankle-brachial indices. 2. No focal hemodynamically significant velocity shift is seen in the inflow or outflow vessels. 3. The left posterior tibial artery is not visualized and may be occluded. The right posterior tibial artery velocity is very low and the waveform is biphasic. This raises the possibility of small vessel disease in this patient. Microbiology Microbiology Results: Microbiology 10/15/20 21:34 Foot Right Gram Stain - Final 10/15/20 21:34 Foot Right Routine Culture - Final Enterococcus faecalis 10/15/20 17:00 Blood - Venous Blood Culture - Preliminary No growth after 48 hours. 10/15/20 16:47 Blood - Venous Blood Culture - Preliminary No growth after 48 hours. Assessment and Plan (1) Osteomyelitis of fifth toe of right foot: Status: Acute Assessment and Plan: hospital d#4 70yo F with DM2 sent in from clinic for non-healing R foot ulcer, found to have osteomyelitis # R foot osteomyelitis - on vanco + pip/jose d#4 - will need amputation, Gen + Vasc Surg following # HTN - continue lisinopril # AF - INR therapeutic on warfarin. rate-controlled # DM2 - correction-dose lispro. 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
--- NOTE | 2020-10-19 15:47 | MHC.CM.PN ---
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 plan continue to monitor al labs, pain assessment and wound assessment patient spoke with surgeon on right foot.spoke with patient and her daughter/hcp [facility] [phone] about whether patient savanna be discharged i]on iv abx or [facility] and iv abx vs amputation of her toe , she asked if i would make some referrals with [facility] so that they can choose a facility if that is what is needed.
[2020-10-19 16:00] VITALS: BP 119/63; PULSE 92; RESP 16; TEMP 36.7; O2SAT 100
--- NOTE | 2020-10-19 16:01 | P.PNVS_ITS ---
Subjective Subjective Date of Service: 10/19/20 Patient reports: no new complaints and feels better Interval history: Pleasantly confused 70-year-old female presents for vascular follow-up. She has this nonhealing right lateral foot ulceration. It is fairly superficial. She has had a treatment of antibiotics. In general appears to be improving. She is for vascular follow-up with noninvasive arterial testing. Physical Exam Vital Signs: Vital Signs: Last Vital Signs Temp 97.7 F 10/19/20 11:30 Pulse 95 10/19/20 11:30 Resp 15 10/19/20 11:30 BP 105/51 L 10/19/20 11:30 Pulse Ox 98 10/19/20 11:30 Body Mass Index 34.7 Const: General: cooperative, healthy appearing and no acute distress Orientation/consciousness: oriented to person, oriented to place and oriented to time HENMT: Head: Yes normal to inspection Neck: Carotids: no bruits Chest: Chest palpation & inspection: normal inspection of the chest Resp: Effort & Inspection: normal respiratory effort and able to speak in complete sentences Auscultation: clear to auscultation bilaterally Cardio: Rate: regular rate Heart sounds: S1 normal heart sound present and S2 normal heart sound present GI: Inspection: Yes normal to inspection Skin: General skin exam: no rashes or lesions noted Wounds: wounds noted (Right lateral foot - 2 cm dry eschar) Neuro: General: oriented to person, oriented to place, oriented to time and CN's II-XI intact bilaterally Extrem: General: Yes normal to inspection, Yes full ROM and Yes no clubbing, cyanosis or edema Psych: Appearance: grossly normal and well kempt Speech and movement: Normal speech and movement present Affect: normal affect Progress Note: A&P Assessment and plan (1) PVD (peripheral vascular disease): Status: Acute Assessment and Plan: Arterial testing appears to be within normal limits. Right foot ulcer is fairly superficial. Would continue with antibiotic therapy. I do think that the foot and toe or viable and salvageable. We will follow her on an as-needed basis. Thank you for allowing us to assist in her care. Fall Risk Details Current Medications: Current Medications Generic Name Dose Route Start Last Admin Trade Name Freq PRN Reason Stop Dose Admin Acetaminophen 650 mg 10/15/20 20:06 Acetaminophen 325 Mg Tablet PO Q6H PRN Pain, Mild (Pain Scale 1-3) Piperacillin Sod/Tazobactam 50 mls @ 100 mls/hr 10/15/20 22:00 10/19/20 13:10 Sod 3.375 gm/ Sodium Chloride IV Infused Q6H CRISTOPHER Infusion Vancomycin HCl 750 mg/ Sodium 265 mls @ 265 mls/hr 10/18/20 21:00 10/19/20 09:50 Chloride IV Infused Q12H CRISTOPHER Infusion Insulin Human Lispro 0 unit 10/15/20 21:00 10/19/20 11:42 Insulin Lispro 100 Unit/Ml 3 Ml Vial SUBCUT 2 unit QIDACHS [facility] Administration Protocol Levetiracetam 750 mg 10/15/20 21:00 10/19/20 08:20 Levetiracetam 250 Mg Tablet PO 750 mg BID CRISTOPHER Administration Lisinopril 5 mg 10/16/20 09:00 10/19/20 08:20 Lisinopril 5 Mg Tablet PO 5 mg DAILY CRISTOPHER Administration Protocol Nystatin 1 appl 10/15/20 22:45 10/19/20 08:29 Nystatin Powder 15 Gm Bottle TOPICAL 1 appl BID CRISTOPHER Administration Protocol Ondansetron HCl 4 mg 10/15/20 20:06 Ondansetron Hcl 4 Mg/2 Ml Vial IVPUSH Q8H PRN Nausea and Vomiting Oxycodone HCl 5 mg 10/15/20 20:10 Oxycodone Hcl Immed Release 5 Mg Tablet PO Q6H PRN Pain, Mild (Pain Scale 1-3) Pharmacy Consult 1 each 10/15/20 20:09 Consult Rx Vancomycin Dosing MISCELLANE DAILY PRN Consult order Sodium Chloride 3 ml 10/16/20 00:00 10/19/20 08:27 0.9 % Sodium Chloride Flush 3 Ml Syringe IVFLUSH 3 ml QSHIFT CRISTOPHER Administration Warfarin Sodium 3 mg 10/16/20 18:00 10/18/20 17:25 Warfarin Sodium 3 Mg Tablet PO 3 mg DAILY@1800 CRISTOPHER Administration Time Spent With Patient Time: Total time spent is greater than 50% in coordination of care (as documented) at patient's floor/unit and/or counseling patient: Time with patient: 15 - 24 minutes
[2020-10-19 16:59] LABS: Glucose, Whole Blood 156 mg/dL (60-115)
[2020-10-19] MEDS: Warfarin Sodium 3 MG TABLET PO (17:27)
[2020-10-19 19:36] VITALS: BP 105/55; PULSE 99; RESP 18; TEMP 36.3; O2SAT 96
[2020-10-19 20:18] LABS: Glucose, Whole Blood 181 mg/dL (60-115)
[2020-10-19 20:51] LABS: Vancomycin Random 15.8 mcg/mL (15-20)
[2020-10-19 23:24] VITALS: BP 118/67; PULSE 91; RESP 18; TEMP 36.2; O2SAT 100
[2020-10-20] VITALS (7 sets, daily range): BP systolic 118–144; BP diastolic 57–69; PULSE 84–97; RESP 18–20; TEMP 36.1–37.2; O2SAT 96–97
[2020-10-20] MEDS: Piperacillin Sodium/Tazobactam 3.375 GM in 0.9 % Sodium Chloride 50 ML IV ×4 (04:02→22:46)
[2020-10-20 07:04] LABS: Prothrombin Time 36.1 SEC (10.8-13.0)
[2020-10-20 07:45] LABS: Glucose, Whole Blood 124 mg/dL (60-115)
--- NOTE | 2020-10-20 08:39 | PM.PNGS ---
Subjective Subjective Date of Service: 10/20/20 Interval history: Denies pain on the foot Says she feels well No reported events Physical Exam Vital Signs: Vital Signs: Last Vital Signs Temp 97.3 F 10/20/20 07:36 Pulse 94 10/20/20 07:36 Resp 18 10/20/20 07:36 BP 144/69 H 10/20/20 07:36 Pulse Ox 96 10/20/20 07:36 Body Mass Index 34.7 Laboratory Results WBC 7.7 X10*3/uL (4.8 -10.8) 10/19/20 06:05 RBC 4.05 X10*6/uL (4. 20-5.50) L 10/19/20 06:05 Hgb 12.5 g/dl (12.0-1 6.0) 10/19/20 06:05 Hct 38.4 % (37-47) 10/19/20 06:05 MCV 94.8 fL (80-98) 10/19/20 06:05 MCH 30.9 pg (27.0-33. 0) 10/19/20 06:05 MCHC 32.6 g/dl (31.0-3 5.0) 10/19/20 06:05 RDW 12.9 % (11.0-16.0 ) 10/19/20 06:05 Plt Count 258 X10*3/uL (160 -400) 10/19/20 06:05 MPV 8.9 fL (9.4-12.3) L 10/19/20 06:05 Immature Gran % (A uto) 0.5 % (0.0-0.4) H 10/19/20 06:05 Neut % (Auto) 64.6 % (45-73) 10/19/20 06:05 Lymph % (Auto) 24.4 % (20-40) 10/19/20 06:05 [place] % (Auto) 7.5 % (2-11) 10/19/20 06:05 Eos % (Auto) 2.6 % (0-4) 10/19/20 06:05 Baso % (Auto) 0.4 % (0-2) 10/19/20 06:05 Lymph # (Auto) 1.9 X10*3/uL (1.2 -4.9) 10/19/20 06:05 [place] # (Auto) 0.6 X10*3/uL (0.1 -1.2) 10/19/20 06:05 Eos # (Auto) 0.2 X10*3/uL (0.0 -0.4) 10/19/20 06:05 Baso # (Auto) 0.0 X10*3/uL (0.0 -0.2) 10/19/20 06:05 Abs Immat Gran (au to) 0.04 X10*3/uL (0. 00-0.03) H 10/19/20 06:05 Absolute Neuts (au to) 5.0 X10*3/uL (2.0 -8.3) 10/19/20 06:05 Absolute Nucleated RBC 0.000 X10*3/uL (0 .0-0.012) 10/19/20 06:05 Nucleated RBC % (a uto) 0.0 /100WBC (0.0- 0.2) 10/19/20 06:05 ESR 58 MM/HR (0-20) H 10/15/20 16:47 PT 36.1 SEC (10.8-13 .0) H 10/20/20 06:10 INR 3.0 (0.9-1.1) H 10/20/20 06:10 Sodium 137 mmol/L (135-1 45) 10/19/20 06:05 Potassium 4.8 mmol/L (3.3-5 .1) 10/19/20 06:05 Chloride 102 mmol/L (96-10 8) 10/19/20 06:05 Carbon Dioxide 25 mmol/L (22-29) 10/19/20 06:05 Anion Gap 15 (12-20) 10/19/20 06:05 BUN 20 mg/dL (9-16) H 10/19/20 06:05 Creatinine 0.82 mg/dL (0.5-1 .4) 10/19/20 06:05 Estim Creat Clear Calc 64.1 10/19/20 06:05 Estimated GFR > 60 10/19/20 06:05 POC Glucose 124 mg/dL (60-115 ) H 10/20/20 07:35 Random Glucose 137 mg/dL (60-115 ) H 10/19/20 06:05 Fasting Glucose 158 mg/dL (60-99) H 10/18/20 06:15 Estimat Average Gl ucose 117 mg/dL 10/18/20 06:15 Hemoglobin A1c % 5.7 % 10/18/20 06:15 Lactic Acid 1.3 mmol/L (0.5-2 .0) 10/15/20 16:47 Calcium 9.0 mg/dL (8.4-10 .2) 10/19/20 06:05 Total Bilirubin 0.8 mg/dL (0.0-1. 0) 10/15/20 16:47 Direct Bilirubin 0.3 mg/dL (0.0-0. 5) 10/15/20 16:47 AST 14 U/L (5-31) 10/15/20 16:47 ALT 14 U/L (0-31) 10/15/20 16:47 Alkaline Phosphata se 58 U/L (39-117) 10/15/20 16:47 C-Reactive Protein 1.54 mg/dL (< or = 0.50) H 10/19/20 06:05 Total Protein 7.5 g/dL (6.5-8.0 ) 10/15/20 16:47 Albumin 4.1 g/dL (3.5-5.0 ) 10/15/20 16:47 Urine Color YELLOW 10/15/20 19:03 Urine Appearance CLEAR 10/15/20 19:03 Urine pH 5.5 (5.0-8.0) 10/15/20 19:03 Ur Specific Gravit y 1.010 (1.005-1.0 25) 10/15/20 19:03 Urine Protein NEG MG/DL (NEG-TR NAI) 10/15/20 19:03 Urine Glucose (UA) NEG MG/DL (NEG) 10/15/20 19:03 Urine Ketones NEG MG/DL (NEG) 10/15/20 19:03 Urine Blood NEG (NEG) 10/15/20 19:03 Urine Nitrite NEG (NEG) 10/15/20 19:03 Ur Leukocyte Iram ase NEG (NEG) 10/15/20 19:03 Vancomycin Trough 10.2 mcg/mL (10.0 -20.0) 10/18/20 18:33 Random Vancomycin 15.8 mcg/mL (15-2 0) 10/19/20 19:59 COVID-19 (TRISH) Negative (Negati ve) 10/15/20 16:47 COVID-19 Clin Com See Note 10/15/20 16:47 Impressions Foot X-Ray 10/15/20 16:26 IMPRESSION: Lateral soft tissue wound superficial with erosive changes at the fifth metatarsophalangeal joint as detailed above concerning for osteomyelitis. Foot CT 10/16/20 13:45 IMPRESSION: Evidence of osteomyelitis involving the 5th metatarsal head and likely the base of the proximal phalanx. Duplex Scan Lower Extremity Artery 10/18/20 08:57 IMPRESSION: 1. Normal bilateral ankle-brachial indices. 2. No focal hemodynamically significant velocity shift is seen in the inflow or outflow vessels. 3. The left posterior tibial artery is not visualized and may be occluded. The right posterior tibial artery velocity is very low and the waveform is biphasic. This raises the possibility of small vessel disease in this patient. Abd US Ao-IVC-BPG 10/18/20 16:03 IMPRESSION: 1. Normal bilateral ankle-brachial indices. 2. No focal hemodynamically significant velocity shift is seen in the inflow or outflow vessels. 3. The left posterior tibial artery is not visualized and may be occluded. The right posterior tibial artery velocity is very low and the waveform is biphasic. This raises the possibility of small vessel disease in this patient. Const: General: comfortable and no acute distress Resp: Effort & Inspection: normal respiratory effort Cardio: Rhythm: abnormal rhythm GI: Palpation (GI): Soft to palpation and nontender Extrem: Other: Ulcer, forefoot, lateral the on the right, scanty drainage, no cellulitis Progress Note: A&P Assessment and plan (1) Osteomyelitis of fifth toe of right foot: Status: Acute Assessment and Plan: Discussed with the patient's healthcare proxy Bill, daughter She wants to proceed with amputation of the 5th toe. I explained to her the technique of amputation. I reviewed the risks, benefits, and alternatives Will do amputation once INR acceptable Also discussed this with the patient - I doubt she understands the situation however in view of her cognitive deficits Hold Coumadin Fall Risk Details Current Medications: Current Medications Generic Name Dose Route Start Last Admin Trade Name Freq PRN Reason Stop Dose Admin Acetaminophen 650 mg 10/15/20 20:06 Acetaminophen 325 Mg Tablet PO Q6H PRN Pain, Mild (Pain Scale 1-3) Piperacillin Sod/Tazobactam 50 mls @ 100 mls/hr 10/15/20 22:00 10/20/20 04:44 Sod 3.375 gm/ Sodium Chloride IV Infused Q6H CRISTOPHER Infusion Vancomycin HCl 750 mg/ Sodium 265 mls @ 265 mls/hr 10/18/20 21:00 10/19/20 23:40 Chloride IV Infused Q12H CRISTOPHER Infusion Insulin Human Lispro 0 unit 10/15/20 21:00 10/20/20 08:17 Insulin Lispro 100 Unit/Ml 3 Ml Vial SUBCUT Not Given QIDACHS [facility] Protocol Levetiracetam 750 mg 10/15/20 21:00 10/19/20 21:30 Levetiracetam 250 Mg Tablet PO 750 mg BID CRISTOPHER Administration Lisinopril 5 mg 10/16/20 09:00 10/19/20 08:20 Lisinopril 5 Mg Tablet PO 5 mg DAILY CRISTOPHER Administration Protocol Nystatin 1 appl 10/15/20 22:45 10/19/20 21:33 Nystatin Powder 15 Gm Bottle TOPICAL 1 appl BID [facility] Administration Protocol Ondansetron HCl 4 mg 10/15/20 20:06 Ondansetron Hcl 4 Mg/2 Ml Vial IVPUSH Q8H PRN Nausea and Vomiting Oxycodone HCl 5 mg 10/15/20 20:10 Oxycodone Hcl Immed Release 5 Mg Tablet PO Q6H PRN Pain, Mild (Pain Scale 1-3) Pharmacy Consult 1 each 10/15/20 20:09 Consult Rx Vancomycin Dosing MISCELLANE DAILY PRN Consult order Sodium Chloride 3 ml 10/16/20 00:00 10/19/20 21:39 0.9 % Sodium Chloride Flush 3 Ml Syringe IVFLUSH 3 ml QSHIFT CRISTOPHER Administration Warfarin Sodium 3 mg 10/16/20 18:00 10/19/20 17:27 Warfarin Sodium 3 Mg Tablet PO 3 mg DAILY@1800 CRISTOPHER Administration Time Spent With Patient Time: Total time spent is greater than 50% in coordination of care (as documented) at patient's floor/unit and/or counseling patient: Time with patient: 15 - 24 minutes
[2020-10-20] MEDS: 0.9 % Sodium Chloride Flush 3 ML SYRINGE IVFLUSH ×4 (09:04→21:36)
[2020-10-20] MEDS: vancomycin HCL 750 MG in 0.9 % Sodium Chloride 250 ML 265 MG IV ×2 (09:06→21:29)
[2020-10-20] MEDS: levETIRAcetam 250 MG TABLET 750 MG PO ×2 (09:08→21:28)
[2020-10-20] MEDS: Nystatin Powder 15 GM BOTTLE 1 APPL TOPICAL ×2 (09:10→21:29)
--- NOTE | 2020-10-20 09:37 | HO.PM.IMPN ---
Subjective Subjective Date of Service: 10/20/20 Interval History: denies foot pain now agreeable to surgery no fever/chills no dyspnea Physical Exam Vital Signs: Vital Signs: Last Vital Signs Temp 97.3 F 10/20/20 07:36 Pulse 94 10/20/20 08:50 Resp 18 10/20/20 07:36 BP 144/69 H 10/20/20 08:50 Pulse Ox 96 10/20/20 08:50 Body Mass Index 34.7 Gen: in no acute distress HEENT: sclera anicteric, moist mucus membranes Neck: supple Lungs: clear to auscultation bilaterally Heart: regular rate and rhythm, no murmurs Abd: soft, non-tender, non-distended Ext: no edema Skin: R 5th toe ulcer no purulent drainage Neuro: alert and oriented x3, some degree of expressive aphasia Psych: appropriate affect Objective Data Current Medications Generic Name Dose Route Start Last Admin Trade Name Freq PRN Reason Stop Dose Admin Acetaminophen 650 mg 10/15/20 20:06 Acetaminophen 325 Mg Tablet PO Q6H PRN Pain, Mild (Pain Scale 1-3) Piperacillin Sod/Tazobactam 50 mls @ 100 mls/hr 10/15/20 22:00 10/20/20 04:44 Sod 3.375 gm/ Sodium Chloride IV Infused Q6H CRISTOPHER Infusion Vancomycin HCl 750 mg/ Sodium 265 mls @ 265 mls/hr 10/18/20 21:00 10/20/20 09:06 Chloride IV 265 mls/hr Q12H CRISTOPHER Administration Insulin Human Lispro 0 unit 10/15/20 21:00 10/20/20 08:17 Insulin Lispro 100 Unit/Ml 3 Ml Vial SUBCUT Not Given QIDACHS [facility] Protocol Levetiracetam 750 mg 10/15/20 21:00 10/20/20 09:08 Levetiracetam 250 Mg Tablet PO 750 mg BID CRISTOPHER Administration Lisinopril 5 mg 10/16/20 09:00 10/20/20 09:08 Lisinopril 5 Mg Tablet PO 5 mg DAILY CRISTOPHER Administration Protocol Nystatin 1 appl 10/15/20 22:45 10/20/20 09:10 Nystatin Powder 15 Gm Bottle TOPICAL 1 appl BID CRISTOPHER Administration Protocol Ondansetron HCl 4 mg 10/15/20 20:06 Ondansetron Hcl 4 Mg/2 Ml Vial IVPUSH Q8H PRN Nausea and Vomiting Oxycodone HCl 5 mg 10/15/20 20:10 Oxycodone Hcl Immed Release 5 Mg Tablet PO Q6H PRN Pain, Mild (Pain Scale 1-3) Pharmacy Consult 1 each 10/15/20 20:09 Consult Rx Vancomycin Dosing MISCELLANE DAILY PRN Consult order Sodium Chloride 3 ml 10/16/20 00:00 10/20/20 09:04 0.9 % Sodium Chloride Flush 3 Ml Syringe IVFLUSH 3 ml QSHIFT CRISTOPHER Administration Warfarin Sodium 3 mg 10/16/20 18:00 10/19/20 17:27 Warfarin Sodium 3 Mg Tablet PO 3 mg DAILY@1800 CRISTOPHER Administration Labs CBC & Chem 7: 10/19/20 06:05 10/19/20 06:05 Labs: Laboratory Results - last 24 hr 10/19/20 10/19/20 10/19/20 11:24 16:50 19:59 PT INR POC Glucose 182 H 156 H Random Vancomycin 15.8 10/19/20 10/20/20 10/20/20 20:14 06:10 07:35 PT 36.1 H INR 3.0 H POC Glucose 181 H 124 H Random Vancomycin Microbiology Microbiology Results: Microbiology 10/15/20 21:34 Foot Right Gram Stain - Final 10/15/20 21:34 Foot Right Routine Culture - Final Enterococcus faecalis 10/15/20 17:00 Blood - Venous Blood Culture - Preliminary No growth after 48 hours. 10/15/20 16:47 Blood - Venous Blood Culture - Preliminary No growth after 48 hours. Assessment and Plan (1) Osteomyelitis of fifth toe of right foot: Status: Acute Assessment and Plan: hospital d#4 70yo F with DM2 sent in from clinic for non-healing R foot ulcer, found to have osteomyelitis # R foot osteomyelitis - on vanco + pip/jose d#5 - on schedule for amputation of 5th toe/resection of 5th MT head tomorrow pending reversal of INR- will give 5mg vit K now # HTN - continue lisinopril # AF - reverse INR. given high CVA risk will consider bridging anticoagulation if there ends up being a prolonged time with subtherapeutic INR though if she goes to surgery tomorrow or Sunday this may not be necessary # DM2 - correction-dose lispro. 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
[2020-10-20] MEDS: Phytonadione (Vit K1) Oral 10 MG/ML AMPUL 5 MG PO (10:54)
[2020-10-20 12:08] LABS: Glucose, Whole Blood 117 mg/dL (60-115)
[2020-10-20 16:23] LABS: Glucose, Whole Blood 143 mg/dL (60-115)
[2020-10-20 20:26] LABS: Glucose, Whole Blood 175 mg/dL (60-115)
[2020-10-20] MEDS: Insulin Lispro 100 UNIT/ML 3 ML VIAL SUBCUT (21:28)
[2020-10-21] VITALS (8 sets, daily range): BP systolic 110–183; BP diastolic 38–73; PULSE 84–112; RESP 14–20; TEMP 36.1–37.3; O2SAT 95–100
--- NOTE | 2020-10-21 | ECG_ITS ---
Test Reason : ST ELEVATIONS Blood Pressure : / mmHG Vent. Rate : 094 BPM Atrial Rate : 094 BPM P-R Int : 220 ms QRS Dur : 068 ms QT Int : 346 ms P-R-T Axes : 029 -15 024 degrees QTc Int : 432 ms Sinus rhythm with 1st degree A-V block Otherwise normal ECG No previous ECGs available Referred By: Jodi Foreman Electronically Signed By:DALTON RICH MD
[2020-10-21] MEDS: Piperacillin Sodium/Tazobactam 3.375 GM in 0.9 % Sodium Chloride 50 ML IV ×3 (04:49→22:30)
[2020-10-21 06:55] LABS: MANUAL DIFF FLAG NO
[2020-10-21 07:09] LABS: Basophils Percent Auto 0.5 % (0-2); Eosinophils Absolute Auto 0.2 X10*3/uL (0.0-0.4); Hemoglobin 10.7 g/dl (12.0-16.0); Imm Gran Abs Auto 0.02 X10*3/uL (0.00-0.03); Imm Gran Pct Auto 0.3 % (0.0-0.4); Lymphocytes Absolute Auto 1.5 X10*3/uL (1.2-4.9); Lymphocytes Percent Auto 23.6 % (20-40); Mean Corpuscular HGB Conc 32.4 g/dl (31.0-35.0); Mean Corpuscular Hemoglobin 30.7 pg (27.0-33.0); Mean Corpuscular Volume 94.6 fL (80-98); Mean Platelet Volume 9.1 fL (9.4-12.3); Monocytes Absolute Auto 0.5 X10*3/uL (0.1-1.2); Monocytes Percent Auto 7.2 % (2-11); Neutrophils Absolute Auto 4.2 X10*3/uL (2.0-8.3); Neutrophils Percent Auto 65.4 % (45-73); Platelet Count 237 X10*3/uL (160-400); Red Blood Count 3.49 X10*6/uL (4.20-5.50); Red Cell Distribution Width 12.9 % (11.0-16.0); White Blood Count 6.4 X10*3/uL (4.8-10.8)
[2020-10-21 07:11] LABS: INTERNATIONAL NORM RATIO 1.5 (0.9-1.1); Prothrombin Time 17.9 SEC (10.8-13.0)
[2020-10-21 07:25] LABS: Glucose, Whole Blood 141 mg/dL (60-115)
[2020-10-21 07:34] LABS: Anion Gap 12 (12-20); Blood Urea Nitrogen 15 mg/dL (9-16); C Reactive Protein 2.33 mg/dL (< or = 0.50); Calcium 8.9 mg/dL (8.4-10.2); Carbon Dioxide 25 mmol/L (22-29); Chloride 107 mmol/L (96-108); Creatinine Clr Calc Pharmacy 66.5; Estimated Glomerular Filt Rate > 60; Glucose Random 138 mg/dL (60-115); Potassium 4.7 mmol/L (3.3-5.1); Sodium 139 mmol/L (135-145)
[2020-10-21 08:03] LABS: Erythrocyte Sedimentation Rate 70 MM/HR (0-20)
--- NOTE | 2020-10-21 08:32 | PM.EVENT ---
Event Note Date of Service: 10/21/20 Event Note: Patient continues to feel well No fever Right foot with ulcer laterally with some scanty drainage noted She has osteomyelitis of the metatarsal head on the 5th toe I had discussions with her healthcare proxy Salvador - she prefers for for Kizzy to undergo amputation instead of prolonged IV antibiotic treatment as she has had this ulcer for about a year now Salvador understands the technique of amputation as well as the risks, benefits, and alternatives The patient is scheduled to have amputation today INR is within normal now. I have discussed the plan with the patient as well
[2020-10-21] MEDS: levETIRAcetam 250 MG TABLET 750 MG PO ×2 (08:39→21:19)
[2020-10-21] MEDS: Nystatin Powder 15 GM BOTTLE 1 APPL TOPICAL ×2 (09:07→21:23)
[2020-10-21] MEDS: vancomycin HCL 750 MG in 0.9 % Sodium Chloride 250 ML 265 MG IV ×2 (09:23→21:19)
--- NOTE | 2020-10-21 11:33 | HO.PM.IMPN ---
Subjective Subjective Date of Service: 10/21/20 Interval History: INR 1.5, going to OR today no pain no fever Physical Exam Vital Signs: Vital Signs: Last Vital Signs Temp 97.6 F 10/21/20 07:59 Pulse 84 10/21/20 09:04 Resp 20 10/21/20 07:59 BP 118/62 10/21/20 09:04 Pulse Ox 97 10/21/20 07:59 Body Mass Index 34.7 Gen: in no acute distress HEENT: sclera anicteric, moist mucus membranes Neck: supple Lungs: clear to auscultation bilaterally Heart: regular rate and rhythm, no murmurs Abd: soft, non-tender, non-distended Ext: no edema Skin: R 5th toe ulcer no purulent drainage Neuro: alert and oriented x3, some degree of expressive aphasia Psych: appropriate affect Objective Data Current Medications Generic Name Dose Route Start Last Admin Trade Name Freq PRN Reason Stop Dose Admin Acetaminophen 650 mg 10/15/20 20:06 Acetaminophen 325 Mg Tablet PO Q6H PRN Pain, Mild (Pain Scale 1-3) Piperacillin Sod/Tazobactam 50 mls @ 100 mls/hr 10/15/20 22:00 10/21/20 06:14 Sod 3.375 gm/ Sodium Chloride IV Infused Q6H CRISTOPHER Infusion Vancomycin HCl 750 mg/ Sodium 265 mls @ 265 mls/hr 10/18/20 21:00 10/21/20 09:23 Chloride IV 265 mls/hr Q12H CRISTOPHER Administration Insulin Human Lispro 0 unit 10/15/20 21:00 10/21/20 08:17 Insulin Lispro 100 Unit/Ml 3 Ml Vial SUBCUT Not Given QIDACHS CRISTOPHER Protocol Levetiracetam 750 mg 10/15/20 21:00 10/21/20 08:39 Levetiracetam 250 Mg Tablet PO 750 mg BID CRISTOPHER Administration Lisinopril 5 mg 10/16/20 09:00 10/21/20 09:04 Lisinopril 5 Mg Tablet PO 5 mg DAILY CRISTOPHER Administration Protocol Nystatin 1 appl 10/15/20 22:45 10/21/20 09:07 Nystatin Powder 15 Gm Bottle TOPICAL 1 appl BID CRISTOPHER Administration Protocol Ondansetron HCl 4 mg 10/15/20 20:06 Ondansetron Hcl 4 Mg/2 Ml Vial IVPUSH Q8H PRN Nausea and Vomiting Pharmacy Consult 1 each 10/15/20 20:09 Consult Rx Vancomycin Dosing MISCELLANE DAILY PRN Consult order Sodium Chloride 3 ml 10/16/20 00:00 10/20/20 21:36 0.9 % Sodium Chloride Flush 3 Ml Syringe IVFLUSH 3 ml QSHIFT CRISTOPHER Administration Warfarin Sodium 3 mg 10/16/20 18:00 10/19/20 17:27 Warfarin Sodium 3 Mg Tablet PO 3 mg DAILY@1800 CRISTOPHER Administration Labs CBC & Chem 7: 10/21/20 06:33 10/21/20 06:33 Labs: Laboratory Results - last 24 hr 10/20/20 10/20/20 10/20/20 11:50 16:19 20:18 WBC RBC Hgb Hct MCV MCH MCHC RDW Plt Count MPV Immature Gran % (Auto) Neut % (Auto) Lymph % (Auto) Mathews % (Auto) Eos % (Auto) Baso % (Auto) Lymph # (Auto) Mathews # (Auto) Eos # (Auto) Baso # (Auto) Abs Immat Gran (auto) Absolute Neuts (auto) Absolute Nucleated RBC Nucleated RBC % (auto) ESR PT INR Sodium Potassium Chloride Carbon Dioxide Anion Gap BUN Creatinine Estim Creat Clear Calc Estimated GFR POC Glucose 117 H 143 H 175 H Random Glucose Calcium C-Reactive Protein 10/21/20 10/21/20 10/21/20 06:33 06:33 06:33 WBC 6.4 RBC 3.49 L Hgb 10.7 L Hct 33.0 L MCV 94.6 MCH 30.7 MCHC 32.4 RDW 12.9 Plt Count 237 MPV 9.1 L Immature Gran % (Auto) 0.3 Neut % (Auto) 65.4 Lymph % (Auto) 23.6 Mathews % (Auto) 7.2 Eos % (Auto) 3.0 Baso % (Auto) 0.5 Lymph # (Auto) 1.5 Mathews # (Auto) 0.5 Eos # (Auto) 0.2 Baso # (Auto) 0.0 Abs Immat Gran (auto) 0.02 Absolute Neuts (auto) 4.2 Absolute Nucleated RBC 0.000 Nucleated RBC % (auto) 0.0 ESR 70 H PT 17.9 H D INR 1.5 H Sodium Potassium Chloride Carbon Dioxide Anion Gap BUN Creatinine Estim Creat Clear Calc Estimated GFR POC Glucose Random Glucose Calcium C-Reactive Protein 10/21/20 10/21/20 06:33 07:13 WBC RBC Hgb Hct MCV MCH MCHC RDW Plt Count MPV Immature Gran % (Auto) Neut % (Auto) Lymph % (Auto) Mathews % (Auto) Eos % (Auto) Baso % (Auto) Lymph # (Auto) Mathews # (Auto) Eos # (Auto) Baso # (Auto) Abs Immat Gran (auto) Absolute Neuts (auto) Absolute Nucleated RBC Nucleated RBC % (auto) ESR PT INR Sodium 139 Potassium 4.7 Chloride 107 Carbon Dioxide 25 Anion Gap 12 BUN 15 Creatinine 0.79 Estim Creat Clear Calc 66.5 Estimated GFR > 60 POC Glucose 141 H Random Glucose 138 H Calcium 8.9 C-Reactive Protein 2.33 H Microbiology Microbiology Results: Microbiology 10/15/20 17:00 Blood - Venous Blood Culture - Final No growth after 5 days. 10/15/20 16:47 Blood - Venous Blood Culture - Final No growth after 5 days. 10/15/20 21:34 Foot Right Gram Stain - Final 10/15/20 21:34 Foot Right Routine Culture - Final Enterococcus faecalis Assessment and Plan (1) Osteomyelitis of fifth toe of right foot: Status: Acute Assessment and Plan: hospital d#5 70yo F with DM2 sent in from clinic for non-healing R foot ulcer, found to have osteomyelitis # R foot osteomyelitis - on vanco + pip/jose d#6 - on schedule for amputation of 5th toe/resection of 5th MT head today; INR reversed # HTN - continue lisinopril # AF - INR reversed. given high CVA risk will consider bridging anticoagulation postoperatively after discussion with Surgery until INR therapeutic # DM2 - correction-dose lispro. 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
[2020-10-21 11:35] LABS: Glucose, Whole Blood 116 mg/dL (60-115)
--- NOTE | 2020-10-21 12:12 | HO.ANESPROP2 ---
HPI - Anesthesia Eval Consult details Narrative: 70yo female patient here for amputation of Right 5th toe PMFSH Active Problems Active Problems: All Active Problems (Updated 10/18/20 @ 12:04 by Reji Silvestre MD) PVD (peripheral vascular disease) (Acute) Osteomyelitis of fifth toe of right foot (Acute) On Coumadin for atrial fibrillation (Acute) Diabetes mellitus (Acute) Right foot infection (Acute) Past Medical History Medical History Afib CVA (cerebral vascular accident) Diabetes mellitus Expressive aphasia HTN (hypertension) On Coumadin for atrial fibrillation Right foot infection Seizures Family History Family history of problems with anesthesia: No Surgical History Surgical History H/O shoulder surgery History of Problems with Anesthesia: No Social History Social History Household Members: Children Housing: House Do you presently have visiting nurse or other home services: No Smoking Status: Never smoker Use of substances other than those prescribed or required for medical reasons: No Currently Displaying Signs/Symptoms of Drug Intoxication Withdrawal: No Have you been hit, kicked, punched, or otherwise hurt by someone within the past year? If so, by whom?: No Do you feel safe in your current relationship?: Yes Is there a partner from a previous relationship who is making you feel unsafe now?: No Are you made to feel afraid or neglected: No Advance Directives: No Advance Directives Information Provided: No Do you have thoughts of harming others: None Do you have a plan to hurt others: No Plan Recently lost weight without trying: No service: No Current occupational status: disabled Meds Allergies Allergy/AdvReac Type Severity Reaction Status Date / Time bupropion [From Wellbutrin] Allergy Intermediate Seizure Verified 10/15/20 15:12 Active Medications: Current Medications Generic Name Dose Route Start Last Admin Trade Name Freq PRN Reason Stop Dose Admin Acetaminophen 650 mg 10/15/20 20:06 Acetaminophen 325 Mg Tablet PO Q6H PRN Pain, Mild (Pain Scale 1-3) Piperacillin Sod/Tazobactam 50 mls @ 100 mls/hr 10/15/20 22:00 10/21/20 06:14 Sod 3.375 gm/ Sodium Chloride IV Infused Q6H [facility] Infusion Vancomycin HCl 750 mg/ Sodium 265 mls @ 265 mls/hr 10/18/20 21:00 10/21/20 09:23 Chloride IV 265 mls/hr Q12H CRISTOPHER Administration Insulin Human Lispro 0 unit 10/15/20 21:00 10/21/20 08:17 Insulin Lispro 100 Unit/Ml 3 Ml Vial SUBCUT Not Given QIDACHS [facility] Protocol Levetiracetam 750 mg 10/15/20 21:00 10/21/20 08:39 Levetiracetam 250 Mg Tablet PO 750 mg BID CRISTOPHER Administration Lisinopril 5 mg 10/16/20 09:00 10/21/20 09:04 Lisinopril 5 Mg Tablet PO 5 mg DAILY [facility] Administration Protocol Nystatin 1 appl 10/15/20 22:45 10/21/20 09:07 Nystatin Powder 15 Gm Bottle TOPICAL 1 appl BID [facility] Administration Protocol Ondansetron HCl 4 mg 10/15/20 20:06 Ondansetron Hcl 4 Mg/2 Ml Vial IVPUSH Q8H PRN Nausea and Vomiting Pharmacy Consult 1 each 10/15/20 20:09 Consult Rx Vancomycin Dosing MISCELLANE DAILY PRN Consult order Sodium Chloride 3 ml 10/16/20 00:00 10/20/20 21:36 0.9 % Sodium Chloride Flush 3 Ml Syringe IVFLUSH 3 ml QSHIFT [facility] Administration Warfarin Sodium 3 mg 10/16/20 18:00 10/19/20 17:27 Warfarin Sodium 3 Mg Tablet PO 3 mg DAILY@1800 [facility] Administration Home Medications Medication Instructions Recorded Confirmed Last Taken Type levetiracetam 750 tab PO BID 10/15/20 10/15/20 Unknown History lisinopril 5 mg PO DAILY 10/15/20 10/16/20 Unknown History metformin 500 tab PO BID 10/15/20 10/15/20 Unknown History warfarin 3 mg PO DAILY 10/15/20 10/15/20 Unknown History Exam Exam Date and Time: October 21, 2020 1212 Height,Weight and Vital Signs: Height 5 ft 2 in Weight 86.183 kg Last Vital Signs Temp 96.9 F 10/21/20 11:26 Pulse 85 10/21/20 11:26 Resp 16 10/21/20 11:26 BP 142/73 H 10/21/20 11:26 Pulse Ox 100 10/21/20 11:26 Pertinent Lab Results Pertinent Lab Results: Laboratory Tests 10/15/20 10/15/20 10/15/20 16:47 16:47 16:47 WBC 7.7 RBC 4.06 L Hgb 12.5 Hct 37.9 MCV 93.3 MCH 30.8 MCHC 33.0 RDW 12.6 Plt Count 264 MPV 8.6 L Immature Gran % (Auto) 0.3 Neut % (Auto) 61.0 Lymph % (Auto) 29.1 [place] % (Auto) 7.0 Eos % (Auto) 2.3 Baso % (Auto) 0.3 Lymph # (Auto) 2.2 [place] # (Auto) 0.5 Eos # (Auto) 0.2 Baso # (Auto) 0.0 Abs Immat Gran (auto) 0.02 Absolute Neuts (auto) 4.7 Absolute Nucleated RBC 0.000 Nucleated RBC % (auto) 0.0 ESR PT 22.1 H INR 1.9 H Sodium 135 Potassium 4.6 Chloride 100 Carbon Dioxide 24 Anion Gap 16 BUN 26 H Creatinine 0.79 Estim Creat Clear Calc 66.5 Estimated GFR > 60 POC Glucose Random Glucose 109 Fasting Glucose Estimat Average Glucose Hemoglobin A1c % Lactic Acid Calcium 9.8 Total Bilirubin 0.8 Direct Bilirubin 0.3 AST 14 ALT 14 Alkaline Phosphatase 58 C-Reactive Protein Total Protein 7.5 Albumin 4.1 Urine Color Urine Appearance Urine pH Ur Specific [place] Urine Protein Urine Glucose (UA) Urine Ketones Urine Blood Urine Nitrite Ur Leukocyte Esterase Vancomycin Trough Random Vancomycin COVID-19 ([facility]) COVID-19 Clin Com 10/15/20 10/15/20 10/15/20 16:47 16:47 16:47 WBC RBC Hgb Hct MCV MCH MCHC RDW Plt Count MPV Immature Gran % (Auto) Neut % (Auto) Lymph % (Auto) [place] % (Auto) Eos % (Auto) Baso % (Auto) Lymph # (Auto) [place] # (Auto) Eos # (Auto) Baso # (Auto) Abs Immat Gran (auto) Absolute Neuts (auto) Absolute Nucleated RBC Nucleated RBC % (auto) ESR 58 H PT INR Sodium Potassium Chloride Carbon Dioxide Anion Gap BUN Creatinine Estim Creat Clear Calc Estimated GFR POC Glucose Random Glucose Fasting Glucose Estimat Average Glucose Hemoglobin A1c % Lactic Acid 1.3 Calcium Total Bilirubin Direct Bilirubin AST ALT Alkaline Phosphatase C-Reactive Protein Total Protein Albumin Urine Color Urine Appearance Urine pH Ur Specific [place] Urine Protein Urine Glucose (UA) Urine Ketones Urine Blood Urine Nitrite Ur Leukocyte Esterase Vancomycin Trough Random Vancomycin COVID-19 ([facility]) Negative COVID-19 Clin Com See Note 10/15/20 10/15/20 10/16/20 19:03 21:06 06:21 WBC RBC Hgb Hct MCV MCH MCHC RDW Plt Count MPV Immature Gran % (Auto) Neut % (Auto) Lymph % (Auto) [place] % (Auto) Eos % (Auto) Baso % (Auto) Lymph # (Auto) [place] # (Auto) Eos # (Auto) Baso # (Auto) Abs Immat Gran (auto) Absolute Neuts (auto) Absolute Nucleated RBC Nucleated RBC % (auto) ESR PT 24.9 H INR 2.1 H Sodium Potassium Chloride Carbon Dioxide Anion Gap BUN Creatinine Estim Creat Clear Calc Estimated GFR POC Glucose 162 H Random Glucose Fasting Glucose Estimat Average Glucose Hemoglobin A1c % Lactic Acid Calcium Total Bilirubin Direct Bilirubin AST ALT Alkaline Phosphatase C-Reactive Protein Total Protein Albumin Urine Color YELLOW Urine Appearance CLEAR Urine pH 5.5 Ur Specific [place] 1.010 Urine Protein NEG Urine Glucose (UA) NEG Urine Ketones NEG Urine Blood NEG Urine Nitrite NEG Ur Leukocyte Esterase NEG Vancomycin Trough Random Vancomycin COVID-19 ([facility]) COVID-19 Clin Com 10/16/20 10/16/20 10/16/20 06:21 06:21 08:03 WBC 6.4 RBC 4.01 L Hgb 12.3 Hct 37.5 MCV 93.5 MCH 30.7 MCHC 32.8 RDW 12.6 Plt Count 259 MPV 8.7 L Immature Gran % (Auto) 0.3 Neut % (Auto) 64.6 Lymph % (Auto) 24.7 [place] % (Auto) 8.1 Eos % (Auto) 2.0 Baso % (Auto) 0.3 Lymph # (Auto) 1.6 [place] # (Auto) 0.5 Eos # (Auto) 0.1 Baso # (Auto) 0.0 Abs Immat Gran (auto) 0.02 Absolute Neuts (auto) 4.1 Absolute Nucleated RBC 0.000 Nucleated RBC % (auto) 0.0 ESR PT INR Sodium 138 Potassium 5.2 H Chloride 102 Carbon Dioxide 26 Anion Gap 15 BUN 21 H Creatinine 0.87 Estim Creat Clear Calc 60.4 Estimated GFR > 60 POC Glucose 114 Random Glucose 132 H Fasting Glucose Estimat Average Glucose Hemoglobin A1c % Lactic Acid Calcium 9.2 D Total Bilirubin Direct Bilirubin AST ALT Alkaline Phosphatase C-Reactive Protein Total Protein Albumin Urine Color Urine Appearance Urine pH Ur Specific [place] Urine Protein Urine Glucose (UA) Urine Ketones Urine Blood Urine Nitrite Ur Leukocyte Esterase Vancomycin Trough Random Vancomycin COVID-19 ([facility]) COVID-19 Clin Com 10/16/20 10/16/20 10/16/20 11:38 16:19 19:44 WBC RBC Hgb Hct MCV MCH MCHC RDW Plt Count MPV Immature Gran % (Auto) Neut % (Auto) Lymph % (Auto) [place] % (Auto) Eos % (Auto) Baso % (Auto) Lymph # (Auto) [place] # (Auto) Eos # (Auto) Baso # (Auto) Abs Immat Gran (auto) Absolute Neuts (auto) Absolute Nucleated RBC Nucleated RBC % (auto) ESR PT INR Sodium Potassium Chloride Carbon Dioxide Anion Gap BUN Creatinine Estim Creat Clear Calc Estimated GFR POC Glucose 132 H 164 H 129 H Random Glucose Fasting Glucose Estimat Average Glucose Hemoglobin A1c % Lactic Acid Calcium Total Bilirubin Direct Bilirubin AST ALT Alkaline Phosphatase C-Reactive Protein Total Protein Albumin Urine Color Urine Appearance Urine pH Ur Specific [place] Urine Protein Urine Glucose (UA) Urine Ketones Urine Blood Urine Nitrite Ur Leukocyte Esterase Vancomycin Trough Random Vancomycin COVID-19 ([facility]) COVID-19 [employer] 10/17/20 10/17/20 10/17/20 06:22 06:22 06:22 WBC 6.4 RBC 3.92 L Hgb 12.2 Hct 37.1 MCV 94.6 MCH 31.1 MCHC 32.9 RDW 12.8 Plt Count 233 MPV 9.0 L Immature Gran % (Auto) 0.3 Neut % (Auto) 67.7 Lymph % (Auto) 21.0 [place] % (Auto) 8.3 Eos % (Auto) 2.5 Baso % (Auto) 0.2 Lymph # (Auto) 1.3 [place] # (Auto) 0.5 Eos # (Auto) 0.2 Baso # (Auto) 0.0 Abs Immat Gran (auto) 0.02 Absolute Neuts (auto) 4.3 Absolute Nucleated RBC 0.000 Nucleated RBC % (auto) 0.0 ESR PT 23.4 H INR 2.0 H Sodium 138 Potassium 4.6 Chloride 104 Carbon Dioxide 26 Anion Gap 13 BUN 20 H Creatinine 0.80 Estim Creat Clear Calc 65.7 Estimated GFR > 60 POC Glucose Random Glucose Fasting Glucose 140 H Estimat Average Glucose Hemoglobin A1c % Lactic Acid Calcium 8.8 Total Bilirubin Direct Bilirubin AST ALT Alkaline Phosphatase C-Reactive Protein Total Protein Albumin Urine Color Urine Appearance Urine pH Ur Specific [place] Urine Protein Urine Glucose (UA) Urine Ketones Urine Blood Urine Nitrite Ur Leukocyte Esterase Vancomycin Trough Random Vancomycin COVID-19 ([facility]) COVID-19 [employer] Com 10/17/20 10/17/20 10/17/20 07:26 11:10 16:22 WBC RBC Hgb Hct MCV MCH MCHC RDW Plt Count MPV Immature Gran % (Auto) Neut % (Auto) Lymph % (Auto) [place] % (Auto) Eos % (Auto) Baso % (Auto) Lymph # (Auto) [place] # (Auto) Eos # (Auto) Baso # (Auto) Abs Immat Gran (auto) Absolute Neuts (auto) Absolute Nucleated RBC Nucleated RBC % (auto) ESR PT INR Sodium Potassium Chloride Carbon Dioxide Anion Gap BUN Creatinine Estim Creat Clear Calc Estimated GFR POC Glucose 137 H 195 H 100 Random Glucose Fasting Glucose Estimat Average Glucose Hemoglobin A1c % Lactic Acid Calcium Total Bilirubin Direct Bilirubin AST ALT Alkaline Phosphatase C-Reactive Protein Total Protein Albumin Urine Color Urine Appearance Urine pH Ur Specific [place] Urine Protein Urine Glucose (UA) Urine Ketones Urine Blood Urine Nitrite Ur Leukocyte Esterase Vancomycin Trough Random Vancomycin COVID-19 ([facility]) COVID-19 [employer] 10/17/20 10/18/20 10/18/20 19:54 06:15 06:15 WBC 8.1 RBC 4.11 L Hgb 12.8 Hct 38.8 MCV 94.4 MCH 31.1 MCHC 33.0 RDW 12.8 Plt Count 262 MPV 8.9 L Immature Gran % (Auto) 0.1 Neut % (Auto) 68.5 Lymph % (Auto) 22.1 [place] % (Auto) 6.7 Eos % (Auto) 2.2 Baso % (Auto) 0.4 Lymph # (Auto) 1.8 [place] # (Auto) 0.5 Eos # (Auto) 0.2 Baso # (Auto) 0.0 Abs Immat Gran (auto) 0.01 Absolute Neuts (auto) 5.6 Absolute Nucleated RBC 0.000 Nucleated RBC % (auto) 0.0 ESR PT 30.2 H D INR 2.5 H Sodium Potassium Chloride Carbon Dioxide Anion Gap BUN Creatinine Estim Creat Clear Calc Estimated GFR POC Glucose 144 H Random Glucose Fasting Glucose Estimat Average Glucose Hemoglobin A1c % Lactic Acid Calcium Total Bilirubin Direct Bilirubin AST ALT Alkaline Phosphatase C-Reactive Protein Total Protein Albumin Urine Color Urine Appearance Urine pH Ur Specific [place] Urine Protein Urine Glucose (UA) Urine Ketones Urine Blood Urine Nitrite Ur Leukocyte Esterase Vancomycin Trough Random Vancomycin COVID-19 ([facility]) COVID-19 Clin Com 10/18/20 10/18/20 10/18/20 06:15 06:15 07:35 WBC RBC Hgb Hct MCV MCH MCHC RDW Plt Count MPV Immature Gran % (Auto) Neut % (Auto) Lymph % (Auto) [place] % (Auto) Eos % (Auto) Baso % (Auto) Lymph # (Auto) [place] # (Auto) Eos # (Auto) Baso # (Auto) Abs Immat Gran (auto) Absolute Neuts (auto) Absolute Nucleated RBC Nucleated RBC % (auto) ESR PT INR Sodium 137 Potassium 4.6 Chloride 103 Carbon Dioxide 24 Anion Gap 15 BUN 16 Creatinine 0.79 Estim Creat Clear Calc 66.5 Estimated GFR > 60 POC Glucose 194 H Random Glucose Fasting Glucose 158 H Estimat Average Glucose 117 Hemoglobin A1c % 5.7 Lactic Acid Calcium 9.2 Total Bilirubin Direct Bilirubin AST ALT Alkaline Phosphatase C-Reactive Protein Total Protein Albumin Urine Color Urine Appearance Urine pH Ur Specific [place] Urine Protein Urine Glucose (UA) Urine Ketones Urine Blood Urine Nitrite Ur Leukocyte Esterase Vancomycin Trough Random Vancomycin COVID-19 ([facility]) COVID-19 Clin Com 10/18/20 10/18/20 10/18/20 11:16 16:49 18:33 WBC RBC Hgb Hct MCV MCH MCHC RDW Plt Count MPV Immature Gran % (Auto) Neut % (Auto) Lymph % (Auto) [place] % (Auto) Eos % (Auto) Baso % (Auto) Lymph # (Auto) [place] # (Auto) Eos # (Auto) Baso # (Auto) Abs Immat Gran (auto) Absolute Neuts (auto) Absolute Nucleated RBC Nucleated RBC % (auto) ESR PT INR Sodium Potassium Chloride Carbon Dioxide Anion Gap BUN Creatinine Estim Creat Clear Calc Estimated GFR POC Glucose 180 H 116 H Random Glucose Fasting Glucose Estimat Average Glucose Hemoglobin A1c % Lactic Acid Calcium Total Bilirubin Direct Bilirubin AST ALT Alkaline Phosphatase C-Reactive Protein Total Protein Albumin Urine Color Urine Appearance Urine pH Ur Specific [place] Urine Protein Urine Glucose (UA) Urine Ketones Urine Blood Urine Nitrite Ur Leukocyte Esterase Vancomycin Trough 10.2 Random Vancomycin COVID-19 ([facility]) COVID-19 Clin Com 10/18/20 10/19/20 10/19/20 20:19 06:05 06:05 WBC 7.7 RBC 4.05 L Hgb 12.5 Hct 38.4 MCV 94.8 MCH 30.9 MCHC 32.6 RDW 12.9 Plt Count 258 MPV 8.9 L Immature Gran % (Auto) 0.5 H Neut % (Auto) 64.6 Lymph % (Auto) 24.4 [place] % (Auto) 7.5 Eos % (Auto) 2.6 Baso % (Auto) 0.4 Lymph # (Auto) 1.9 [place] # (Auto) 0.6 Eos # (Auto) 0.2 Baso # (Auto) 0.0 Abs Immat Gran (auto) 0.04 H Absolute Neuts (auto) 5.0 Absolute Nucleated RBC 0.000 Nucleated RBC % (auto) 0.0 ESR PT 30.5 H INR 2.5 H Sodium Potassium Chloride Carbon Dioxide Anion Gap BUN Creatinine Estim Creat Clear Calc Estimated GFR POC Glucose 189 H Random Glucose Fasting Glucose Estimat Average Glucose Hemoglobin A1c % Lactic Acid Calcium Total Bilirubin Direct Bilirubin AST ALT Alkaline Phosphatase C-Reactive Protein Total Protein Albumin Urine Color Urine Appearance Urine pH Ur Specific [place] Urine Protein Urine Glucose (UA) Urine Ketones Urine Blood Urine Nitrite Ur Leukocyte Esterase Vancomycin Trough Random Vancomycin COVID-19 ([facility]) COVID-19 Clin Com 10/19/20 10/19/20 10/19/20 06:05 07:32 11:24 WBC RBC Hgb Hct MCV MCH MCHC RDW Plt Count MPV Immature Gran % (Auto) Neut % (Auto) Lymph % (Auto) [place] % (Auto) Eos % (Auto) Baso % (Auto) Lymph # (Auto) [place] # (Auto) Eos # (Auto) Baso # (Auto) Abs Immat Gran (auto) Absolute Neuts (auto) Absolute Nucleated RBC Nucleated RBC % (auto) ESR PT INR Sodium 137 Potassium 4.8 Chloride 102 Carbon Dioxide 25 Anion Gap 15 BUN 20 H Creatinine 0.82 Estim Creat Clear Calc 64.1 Estimated GFR > 60 POC Glucose 125 H 182 H Random Glucose 137 H Fasting Glucose Estimat Average Glucose Hemoglobin A1c % Lactic Acid Calcium 9.0 Total Bilirubin Direct Bilirubin AST ALT Alkaline Phosphatase C-Reactive Protein 1.54 H Total Protein Albumin Urine Color Urine Appearance Urine pH Ur Specific [place] Urine Protein Urine Glucose (UA) Urine Ketones Urine Blood Urine Nitrite Ur Leukocyte Esterase Vancomycin Trough Random Vancomycin COVID-19 ([facility]) COVID-19 [employer] Com 10/19/20 10/19/20 10/19/20 16:50 19:59 20:14 WBC RBC Hgb Hct MCV MCH MCHC RDW Plt Count MPV Immature Gran % (Auto) Neut % (Auto) Lymph % (Auto) [place] % (Auto) Eos % (Auto) Baso % (Auto) Lymph # (Auto) [place] # (Auto) Eos # (Auto) Baso # (Auto) Abs Immat Gran (auto) Absolute Neuts (auto) Absolute Nucleated RBC Nucleated RBC % (auto) ESR PT INR Sodium Potassium Chloride Carbon Dioxide Anion Gap BUN Creatinine Estim Creat Clear Calc Estimated GFR POC Glucose 156 H 181 H Random Glucose Fasting Glucose Estimat Average Glucose Hemoglobin A1c % Lactic Acid Calcium Total Bilirubin Direct Bilirubin AST ALT Alkaline Phosphatase C-Reactive Protein Total Protein Albumin Urine Color Urine Appearance Urine pH Ur Specific [place] Urine Protein Urine Glucose (UA) Urine Ketones Urine Blood Urine Nitrite Ur Leukocyte Esterase Vancomycin Trough Random Vancomycin 15.8 COVID-19 ([facility]) COVID-19 [employer] 10/20/20 10/20/20 10/20/20 06:10 07:35 11:50 WBC RBC Hgb Hct MCV MCH MCHC RDW Plt Count MPV Immature Gran % (Auto) Neut % (Auto) Lymph % (Auto) [place] % (Auto) Eos % (Auto) Baso % (Auto) Lymph # (Auto) [place] # (Auto) Eos # (Auto) Baso # (Auto) Abs Immat Gran (auto) Absolute Neuts (auto) Absolute Nucleated RBC Nucleated RBC % (auto) ESR PT 36.1 H INR 3.0 H Sodium Potassium Chloride Carbon Dioxide Anion Gap BUN Creatinine Estim Creat Clear Calc Estimated GFR POC Glucose 124 H 117 H Random Glucose Fasting Glucose Estimat Average Glucose Hemoglobin A1c % Lactic Acid Calcium Total Bilirubin Direct Bilirubin AST ALT Alkaline Phosphatase C-Reactive Protein Total Protein Albumin Urine Color Urine Appearance Urine pH Ur Specific [place] Urine Protein Urine Glucose (UA) Urine Ketones Urine Blood Urine Nitrite Ur Leukocyte Esterase Vancomycin Trough Random Vancomycin COVID-19 ([facility]) COVID-19 [employer] 10/20/20 10/20/20 10/21/20 16:19 20:18 06:33 WBC RBC Hgb Hct MCV MCH MCHC RDW Plt Count MPV Immature Gran % (Auto) Neut % (Auto) Lymph % (Auto) [place] % (Auto) Eos % (Auto) Baso % (Auto) Lymph # (Auto) [place] # (Auto) Eos # (Auto) Baso # (Auto) Abs Immat Gran (auto) Absolute Neuts (auto) Absolute Nucleated RBC Nucleated RBC % (auto) ESR PT 17.9 H D INR 1.5 H Sodium Potassium Chloride Carbon Dioxide Anion Gap BUN Creatinine Estim Creat Clear Calc Estimated GFR POC Glucose 143 H 175 H Random Glucose Fasting Glucose Estimat Average Glucose Hemoglobin A1c % Lactic Acid Calcium Total Bilirubin Direct Bilirubin AST ALT Alkaline Phosphatase C-Reactive Protein Total Protein Albumin Urine Color Urine Appearance Urine pH Ur Specific [place] Urine Protein Urine Glucose (UA) Urine Ketones Urine Blood Urine Nitrite Ur Leukocyte Esterase Vancomycin Trough Random Vancomycin COVID-19 ([facility]) COVID-19 [employer] 10/21/20 10/21/20 10/21/20 06:33 06:33 06:33 WBC 6.4 RBC 3.49 L Hgb 10.7 L Hct 33.0 L MCV 94.6 MCH 30.7 MCHC 32.4 RDW 12.9 Plt Count 237 MPV 9.1 L Immature Gran % (Auto) 0.3 Neut % (Auto) 65.4 Lymph % (Auto) 23.6 [place] % (Auto) 7.2 Eos % (Auto) 3.0 Baso % (Auto) 0.5 Lymph # (Auto) 1.5 [place] # (Auto) 0.5 Eos # (Auto) 0.2 Baso # (Auto) 0.0 Abs Immat Gran (auto) 0.02 Absolute Neuts (auto) 4.2 Absolute Nucleated RBC 0.000 Nucleated RBC % (auto) 0.0 ESR 70 H PT INR Sodium 139 Potassium 4.7 Chloride 107 Carbon Dioxide 25 Anion Gap 12 BUN 15 Creatinine 0.79 Estim Creat Clear Calc 66.5 Estimated GFR > 60 POC Glucose Random Glucose 138 H Fasting Glucose Estimat Average Glucose Hemoglobin A1c % Lactic Acid Calcium 8.9 Total Bilirubin Direct Bilirubin AST ALT Alkaline Phosphatase C-Reactive Protein 2.33 H Total Protein Albumin Urine Color Urine Appearance Urine pH Ur Specific [place] Urine Protein Urine Glucose (UA) Urine Ketones Urine Blood Urine Nitrite Ur Leukocyte Esterase Vancomycin Trough Random Vancomycin COVID-19 ([facility]) COVID-19 Clin Com 10/21/20 10/21/20 07:13 11:28 WBC RBC Hgb Hct MCV MCH MCHC RDW Plt Count MPV Immature Gran % (Auto) Neut % (Auto) Lymph % (Auto) [place] % (Auto) Eos % (Auto) Baso % (Auto) Lymph # (Auto) [place] # (Auto) Eos # (Auto) Baso # (Auto) Abs Immat Gran (auto) Absolute Neuts (auto) Absolute Nucleated RBC Nucleated RBC % (auto) ESR PT INR Sodium Potassium Chloride Carbon Dioxide Anion Gap BUN Creatinine Estim Creat Clear Calc Estimated GFR POC Glucose 141 H 116 H Random Glucose Fasting Glucose Estimat Average Glucose Hemoglobin A1c % Lactic Acid Calcium Total Bilirubin Direct Bilirubin AST ALT Alkaline Phosphatase C-Reactive Protein Total Protein Albumin Urine Color Urine Appearance Urine pH Ur Specific [place] Urine Protein Urine Glucose (UA) Urine Ketones Urine Blood Urine Nitrite Ur Leukocyte Esterase Vancomycin Trough Random Vancomycin COVID-19 ([facility]) COVID-19 Clin Com Airway Mallampati Class: II TM Dist: >3cm Neck ROM: Full Heart: RRR Lungs: CTAB Assessment and Plan Assessment Anesthesia Assessment: Anesthesia Plan Discussed and Chart Reviewed Final Anesthetic Review NPO: Yes ASA Class: III Final Preanesthetic Review: No Changes in Pt Med Stat, Meds/Allgs Chart Reviewed, Consent Obtained/Reviewed and Anes Risks/Benef Reviewed Patient Risk: Intermediate Procedure Risk: Low Assessment/Block/Sedation in SS: Assess/Block/Sedation-SS Anesthetic Plan Anesthetic Plan: MAC: Disposition: Standard PACU
--- NOTE | 2020-10-21 13:06 | MHC.CM.PN ---
HCP COMPLETE WITH PATIENT. COPY WITH CHART.
--- NOTE | 2020-10-21 13:43 | MHC.CM.PN ---
PATIENT IS SCHEDULED FOR O.R. TODAY FOR OSTEOMYELITIS PLAN IS HOME WITH RESUMPTION OF [facility] OR SNF PLACEMENT. CURRENTLY, [facility] IS ONLY CHOICE OF FACILITY THAT IS FOLLOWING
--- NOTE | 2020-10-21 14:17 | PM.OP ---
Brief Operative Note Date of Service: 10/21/20 <VALENCIA Ortez Last Filed: 10/21/20 14:18> Pre-op diagnosis: osteomyelitis of right fifth toe <VALENCIA Ortez Last Filed: 10/21/20 14:18> Post-op diagnosis: same <VALENCIA Ortez Last Filed: 10/21/20 14:18> Procedure: amputation of right fifth toe <VALENCIA Ortez Last Filed: 10/21/20 14:18> Surgeon: JERMAINE BYRD MD <VALENCIA Ortez Last Filed: 10/21/20 14:18> Anesthesia: MAC <VALENCIA Ortez Last Filed: 10/21/20 14:18> Supportive Employment Case Manager: Mirna Barraza <VALENCIA Ortez Last Filed: 10/21/20 14:18> Estimated blood loss (mL): 15 <VALENCIA Ortez Last Filed: 10/21/20 14:18> Pathology: other (right fifth toe) <VALENCIA Ortez Last Filed: 10/21/20 14:18> Condition: stable <VALENCIA Ortez Last Filed: 10/21/20 14:18> Disposition: PACU <VALENCIA Ortez Last Filed: 10/21/20 14:18>
[2020-10-21 16:36] LABS: Glucose, Whole Blood 110 mg/dL (60-115)
--- NOTE | 2020-10-21 16:36 | W.PM.OPN ---
Operative Note Operative Note Date of Service: 10/21/20 Narrative: PREOP DIAGNOSIS: ULCER WITH OSTEOMYELITIS, METATARSAL HEAD OF THE 5TH TOE, RIGHT POSTOP DIAGNOSIS: THE SAME PROCEDURE DONE: AMPUTATION OF THE 5TH TOE AT THE DISTAL METATARSAL SURGEON: JERMAINE BYRD M.D. EMBOSSING PRESS OPERATOR MOLDED GOODS: KAYODE LIRIANO The patient is a 70-year-old female who has had a chronic ulcer on the lateral aspect of the right forefoot. This has not improved at all and she was therefore sent to the ER. Workup with imaging had revealed osteomyelitis of the metatarsal head on the 5th toe on the right foot. I had discussions with her healthcare proxy Christina about her options. Her daughter wanted to proceed with amputation and t had given consent. She understood the technique of the procedure as well as the risks, benefits, and alternatives. The patient was brought to the operating room. She was placed supine on the or table under monitored anesthesia care. A surgical time-out was done. Cefazolin had been given. The right foot was prepped and draped in the usual sterile fashion. Generous filtration of the base of the 5th toe at the planned line of incision was done using lidocaine 1%. There was note of a draining ulcer at the base of the 5th toe laterally. I then made an incision around the 5th toe all the way to the lateral aspect of the foot using blade 15. This was carried down through the full-thickness of the skin and subcutaneous fat using electrocautery. We then dissected through the soft tissue including the some muscles and tendons to expose the distal metatarsal. I used Scott scissors to divide across tendons and ligaments. I then defined the distal metatarsal using a periosteal elevator. Once we had good exposure of the distal metatarsal, I divided the distal metatarsal proximal to the metatarsal head to make sure that we were including the infected bone. This was achieved using bone cutter. I then within the divided bone with a rongeur. The stool including the distal metatarsal was sent as a specimen. I irrigated the area of mutation. I made sure that there was good hemostasis. Once hemostasis was ensured, proceeded to then apply a bone wax on the divided bone. I reapposed the deep subcutaneous layer with Dexon 3-0 interrupted sutures. Skin closure was achieved with full-thickness nylon 2-0 interrupted sutures. Thick dressings were applied and the foot was wrapped in Kerlix roll and Zack bandage. The patient tolerated procedure well. There were no complication noted. Initial fine counts sponges and instruments were correct. Estimated blood loss about 20 cc. The patient was then transferred to the recovery room with stable vital signs.
[2020-10-21] MEDS: 0.9 % Sodium Chloride Flush 3 ML SYRINGE IVFLUSH ×2 (17:09→21:20)
[2020-10-21 20:21] LABS: Glucose, Whole Blood 139 mg/dL (60-115)
[2020-10-21 20:49] LABS: Vancomycin Trough 15.7 mcg/mL (10.0-20.0)
[2020-10-22] VITALS (7 sets, daily range): BP systolic 121–137; BP diastolic 61–75; PULSE 86–105; RESP 14–18; TEMP 36.1–36.9; O2SAT 97–99
[2020-10-22] MEDS: Piperacillin Sodium/Tazobactam 3.375 GM in 0.9 % Sodium Chloride 50 ML IV (04:47)
[2020-10-22 06:57] LABS: MANUAL DIFF FLAG NO
[2020-10-22 07:06] LABS: Basophils Percent Auto 0.1 % (0-2); Eosinophils Absolute Auto 0.1 X10*3/uL (0.0-0.4); Eosinophils Percent Auto 1.6 % (0-4); Hematocrit 31.7 % (37-47); Hemoglobin 10.4 g/dl (12.0-16.0); Imm Gran Abs Auto 0.03 X10*3/uL (0.00-0.03); Imm Gran Pct Auto 0.4 % (0.0-0.4); Lymphocytes Absolute Auto 1.3 X10*3/uL (1.2-4.9); Lymphocytes Percent Auto 17.7 % (20-40); Mean Corpuscular HGB Conc 32.8 g/dl (31.0-35.0); Mean Corpuscular Hemoglobin 30.7 pg (27.0-33.0); Mean Corpuscular Volume 93.5 fL (80-98); Mean Platelet Volume 8.9 fL (9.4-12.3); Monocytes Absolute Auto 0.6 X10*3/uL (0.1-1.2); Monocytes Percent Auto 8.2 % (2-11); Neutrophils Absolute Auto 5.3 X10*3/uL (2.0-8.3); Platelet Count 240 X10*3/uL (160-400); Red Blood Count 3.39 X10*6/uL (4.20-5.50); Red Cell Distribution Width 12.8 % (11.0-16.0); White Blood Count 7.3 X10*3/uL (4.8-10.8)
[2020-10-22 07:13] LABS: INTERNATIONAL NORM RATIO 1.3 (0.9-1.1); Prothrombin Time 15.8 SEC (10.8-13.0)
[2020-10-22 07:26] LABS: Anion Gap 17 (12-20); Blood Urea Nitrogen 13 mg/dL (9-16); Calcium 8.5 mg/dL (8.4-10.2); Carbon Dioxide 20 mmol/L (22-29); Chloride 106 mmol/L (96-108); Creatinine Clr Calc Pharmacy 66.5; Estimated Glomerular Filt Rate > 60; Glucose Random 148 mg/dL (60-115); Potassium 4.3 mmol/L (3.3-5.1); Sodium 139 mmol/L (135-145)
[2020-10-22 08:33] LABS: Glucose, Whole Blood 149 mg/dL (60-115)
--- NOTE | 2020-10-22 08:37 | PM.PNGS ---
Subjective Subjective Date of Service: 10/22/20 <Mirna Barraza PA-C - Last Filed: 10/22/20 08:42> 10/22/20 <Osmin Parada MD - Last Filed: 10/22/20 11:38> Interval history: Feels ok. Denies pain. <Mirna Barraza PA-C - Last Filed: 10/22/20 08:42> Physical Exam Vital Signs: Vital Signs: Last Vital Signs Temp 98.2 F 10/22/20 07:25 Pulse 97 10/22/20 07:25 Resp 17 10/22/20 07:25 BP 131/67 10/22/20 07:25 Pulse Ox 97 10/22/20 07:25 Body Mass Index 34.7 <Mirna Barraza PA-C - Last Filed: 10/22/20 08:42> Const: General: comfortable, no acute distress and alert <Mirna Barraza PA-C - Last Filed: 10/22/20 08:42> Orientation/consciousness: patient oriented x3 <Mirna Barraza PA-C - Last Filed: 10/22/20 08:42> Eyes: Sclerae: sclerae normal <Mirna Barraza PA-C - Last Filed: 10/22/20 08:42> Resp: Effort & Inspection: normal respiratory effort <Mirna Barraza PA-C - Last Filed: 10/22/20 08:42> Skin: General skin exam: no rashes or lesions noted <Mirna Barraza PA-C - Last Filed: 10/22/20 08:42> Neuro: General: patient oriented x3 <Mirna Barraza PA-C - Last Filed: 10/22/20 08:42> Extrem: Other: right foot, fifth toe amputation site- no erythema, slightly edematous, sutures intact, small amount of sanguineous drainage, edema of foot significantly improved <Mirna Barraza PA-C - Last Filed: 10/22/20 08:42> Progress Note: A&P Assessment and plan (1) Osteomyelitis of fifth toe of right foot: Status: Acute <Mirna Barraza PA-C - Last Filed: 10/22/20 08:42> (2) On Coumadin for atrial fibrillation: Status: Acute <Mirna Barraza PA-C - Last Filed: 10/22/20 08:42> (3) Diabetes mellitus: Status: Acute <Mirna Barraza PA-C - Last Filed: 10/22/20 08:42> (4) PVD (peripheral vascular disease): Status: Acute <Mirna Barraza PA-C - Last Filed: 10/22/20 08:42> (5) Status post amputation of toe of right foot: Problem details: POD #1 s/p amputation of right fifth toe <Mirna Barraza PA-C - Last Filed: 10/22/20 08:42> Status: Acute <Mirna Barraza PA-C - Last Filed: 10/22/20 08:42> Assessment and Plan: Doing well post op, comfortable. VSS. Amputation site clean, sutures intact. Pedal edema improved. Dressing changed this am- continue daily dressing changes with fluffs, kerlix and zack wrap. Continue R foot elevation. PT consult- no weight bearing on right forefoot. Ok to resume coumadin tomorrow. <Mirna Barraza PA-C - Last Filed: 10/22/20 08:42> She looks well Has good pain control Dressings dry Dressings changed earlier Avoid weight-bearing on the area of the right foot Daily wound care with dry dressing changes, with Kerlix and Zack bandage Seen and examined -agree with KAYODE Barraza <Osmin Parada MD - Last Filed: 10/22/20 11:38> Fall Risk Details Current Medications: Current Medications Generic Name Dose Route Start Last Admin Trade Name Freq PRN Reason Stop Dose Admin Acetaminophen 650 mg 10/15/20 20:06 Acetaminophen 325 Mg Tablet PO Q6H PRN Pain, Mild (Pain Scale 1-3) Enoxaparin Sodium 85 mg 10/22/20 16:00 Enoxaparin Sodium 100 Mg/Ml Syringe 1 mg/kg (85 mg) SUBCUT Q12H C[facility]STOPHER Piperacillin Sod/Tazobactam 50 mls @ 100 mls/hr 10/15/20 22:00 10/22/20 05:26 Sod 3.375 gm/ Sodium Chloride IV Infused Q6H C[facility]STOPHER Infusion Vancomycin HCl 750 mg/ Sodium 265 mls @ 265 mls/hr 10/18/20 21:00 10/21/20 22:35 Chloride IV Infused Q12H [facility] Infusion Insulin Human Lispro 0 unit 10/15/20 21:00 10/22/20 08:36 Insulin Lispro 100 Unit/Ml 3 Ml Vial SUBCUT Not Given QIDACHS [facility] Protocol Levetiracetam 750 mg 10/15/20 21:00 10/21/20 21:19 Levetiracetam 250 Mg Tablet PO 750 mg BID CRISTOPHER Administration Lisinopril 5 mg 10/16/20 09:00 10/21/20 09:04 Lisinopril 5 Mg Tablet PO 5 mg DAILY CRISTOPHER Administration Protocol Morphine Sulfate 2 mg 10/21/20 15:23 Morphine Sulfate 2 Mg/Ml Cartridge IVPUSH Q4H PRN Pain, Severe (Pain Scale 7-10) Nystatin 1 appl 10/15/20 22:45 10/21/20 21:23 Nystatin Powder 15 Gm Bottle TOPICAL 1 appl BID CRISTOPHER Administration Protocol Ondansetron HCl 4 mg 10/15/20 20:06 Ondansetron Hcl 4 Mg/2 Ml Vial IVPUSH Q8H PRN Nausea and Vomiting Oxycodone HCl 5 mg 10/21/20 15:23 Oxycodone Hcl Immed Release 5 Mg Tablet PO Q4H PRN Pain, Moderate (Pain Scale 4-6 Pharmacy Consult 1 each 10/15/20 20:09 Consult Rx Vancomycin Dosing MISCELLANE DAILY PRN Consult order Sodium Chloride 3 ml 10/16/20 00:00 10/21/20 21:20 0.9 % Sodium Chloride Flush 3 Ml Syringe IVFLUSH 3 ml QSHIFT [facility] Administration Warfarin Sodium 3 mg 10/16/20 18:00 10/19/20 17:27 Warfarin Sodium 3 Mg Tablet PO 3 mg DAILY@1800 [facility] Administration <Mirna Barraza PA-C - Last Filed: 10/22/20 08:42> Time Spent With Patient Time: Total time spent is greater than 50% in coordination of care (as documented) at patient's floor/unit and/or counseling patient: <Mirna Barraza PA-C - Last Filed: 10/22/20 08:42> Time with patient: 15 - 24 minutes <Mirna Barraza PA-C - Last Filed: 10/22/20 08:42>
[2020-10-22] MEDS: levETIRAcetam 250 MG TABLET 750 MG PO ×2 (08:56→21:03)
[2020-10-22] MEDS: Nystatin Powder 15 GM BOTTLE 1 APPL TOPICAL ×2 (08:56→21:04)
[2020-10-22] MEDS: 0.9 % Sodium Chloride Flush 3 ML SYRINGE IVFLUSH ×2 (08:56→17:16)
--- NOTE | 2020-10-22 09:12 | P.PNIM_ITS ---
Subjective Subjective Date of Service: 10/22/20 Interval History: POD #1 No pain No fever No dyspnea No cough Physical Exam Vital Signs: Vital Signs: Last Vital Signs Temp 98.2 F 10/22/20 07:25 Pulse 97 10/22/20 07:25 Resp 17 10/22/20 07:25 BP 131/67 10/22/20 07:25 Pulse Ox 97 10/22/20 07:25 Body Mass Index 34.7 Gen: in no acute distress HEENT: sclera anicteric, moist mucus membranes Neck: supple Lungs: clear to auscultation bilaterally Heart: regular rate and rhythm, no murmurs Abd: soft, non-tender, non-distended Ext: no edema Skin: lateral 5th toe wound with sutures clean/dry/intact, no purulence Neuro: alert and oriented x3, some degree of expressive aphasia and right hemiparesis Psych: appropriate affect Objective Data Current Medications Generic Name Dose Route Start Last Admin Trade Name Freq PRN Reason Stop Dose Admin Acetaminophen 650 mg 10/15/20 20:06 Acetaminophen 325 Mg Tablet PO Q6H PRN Pain, Mild (Pain Scale 1-3) Enoxaparin Sodium 85 mg 10/22/20 16:00 Enoxaparin Sodium 100 Mg/Ml Syringe 1 mg/kg (85 mg) SUBCUT Q12H C[facility]HER Piperacillin Sod/Tazobactam 50 mls @ 100 mls/hr 10/15/20 22:00 10/22/20 05:26 Sod 3.375 gm/ Sodium Chloride IV Infused Q6H [facility] Infusion Vancomycin HCl 750 mg/ Sodium 265 mls @ 265 mls/hr 10/18/20 21:00 10/21/20 22:35 Chloride IV Infused Q12H [facility] Infusion Insulin Human Lispro 0 unit 10/15/20 21:00 10/22/20 08:36 Insulin Lispro 100 Unit/Ml 3 Ml Vial SUBCUT Not Given QIDACHS [facility] Protocol Levetiracetam 750 mg 10/15/20 21:00 10/22/20 08:56 Levetiracetam 250 Mg Tablet PO 750 mg BID CRISTOPHER Administration Lisinopril 5 mg 10/16/20 09:00 10/22/20 08:55 Lisinopril 5 Mg Tablet PO 5 mg DAILY CRISTOPHER Administration Protocol Morphine Sulfate 2 mg 10/21/20 15:23 Morphine Sulfate 2 Mg/Ml Cartridge IVPUSH Q4H PRN Pain, Severe (Pain Scale 7-10) Nystatin 1 appl 10/15/20 22:45 10/22/20 08:56 Nystatin Powder 15 Gm Bottle TOPICAL 1 appl BID CRISTOPHER Administration Protocol Ondansetron HCl 4 mg 10/15/20 20:06 Ondansetron Hcl 4 Mg/2 Ml Vial IVPUSH Q8H PRN Nausea and Vomiting Oxycodone HCl 5 mg 10/21/20 15:23 Oxycodone Hcl Immed Release 5 Mg Tablet PO Q4H PRN Pain, Moderate (Pain Scale 4-6 Pharmacy Consult 1 each 10/15/20 20:09 Consult Rx Vancomycin Dosing MISCELLANE DAILY PRN Consult order Sodium Chloride 3 ml 10/16/20 00:00 10/22/20 08:56 0.9 % Sodium Chloride Flush 3 Ml Syringe IVFLUSH 3 ml QSHIFT [facility] Administration Warfarin Sodium 3 mg 10/16/20 18:00 10/19/20 17:27 Warfarin Sodium 3 Mg Tablet PO 3 mg DAILY@1800 CRISTOPHER Administration Labs CBC & Chem 7: 10/22/20 06:34 10/22/20 06:34 Labs: Laboratory Results - last 24 hr 10/21/20 10/21/20 10/21/20 11:28 16:26 19:53 WBC RBC Hgb Hct MCV MCH MCHC RDW Plt Count MPV Immature Gran % (Auto) Neut % (Auto) Lymph % (Auto) [place] % (Auto) Eos % (Auto) Baso % (Auto) Lymph # (Auto) [place] # (Auto) Eos # (Auto) Baso # (Auto) Abs Immat Gran (auto) Absolute Neuts (auto) Absolute Nucleated RBC Nucleated RBC % (auto) PT INR Sodium Potassium Chloride Carbon Dioxide Anion Gap BUN Creatinine Estim Creat Clear Calc Estimated GFR POC Glucose 116 H 110 Random Glucose Calcium Vancomycin Trough 15.7 10/21/20 10/22/20 10/22/20 20:16 06:34 06:34 WBC 7.3 RBC 3.39 L Hgb 10.4 L Hct 31.7 L MCV 93.5 MCH 30.7 MCHC 32.8 RDW 12.8 Plt Count 240 MPV 8.9 L Immature Gran % (Auto) 0.4 Neut % (Auto) 72.0 Lymph % (Auto) 17.7 L [place] % (Auto) 8.2 Eos % (Auto) 1.6 Baso % (Auto) 0.1 Lymph # (Auto) 1.3 [place] # (Auto) 0.6 Eos # (Auto) 0.1 Baso # (Auto) 0.0 Abs Immat Gran (auto) 0.03 Absolute Neuts (auto) 5.3 Absolute Nucleated RBC 0.000 Nucleated RBC % (auto) 0.0 PT 15.8 H INR 1.3 H Sodium Potassium Chloride Carbon Dioxide Anion Gap BUN Creatinine Estim Creat Clear Calc Estimated GFR POC Glucose 139 H Random Glucose Calcium Vancomycin Trough 10/22/20 10/22/20 06:34 07:28 WBC RBC Hgb Hct MCV MCH MCHC RDW Plt Count MPV Immature Gran % (Auto) Neut % (Auto) Lymph % (Auto) [place] % (Auto) Eos % (Auto) Baso % (Auto) Lymph # (Auto) [place] # (Auto) Eos # (Auto) Baso # (Auto) Abs Immat Gran (auto) Absolute Neuts (auto) Absolute Nucleated RBC Nucleated RBC % (auto) PT INR Sodium 139 Potassium 4.3 Chloride 106 Carbon Dioxide 20 L Anion Gap 17 BUN 13 Creatinine 0.79 Estim Creat Clear Calc 66.5 Estimated GFR > 60 POC Glucose 149 H Random Glucose 148 H Calcium 8.5 Vancomycin Trough Microbiology Microbiology Results: Microbiology 10/15/20 17:00 Blood - Venous Blood Culture - Final No growth after 5 days. 10/15/20 16:47 Blood - Venous Blood Culture - Final No growth after 5 days. 10/15/20 21:34 Foot Right Gram Stain - Final 10/15/20 21:34 Foot Right Routine Culture - Final Enterococcus faecalis Assessment and Plan (1) Osteomyelitis of fifth toe of right foot: Status: Acute Assessment and Plan: hospital d#8 70yo F with DM2 sent in from clinic for non-healing R foot ulcer, found to have osteomyelitis # R foot osteomyelitis - on vanco + pip/jose d#7, discuss transition to PO with ID - POD #1 amputation of 5th toe/resection of 5th MT head by Dr Parada; PT eval; avoid weight bearing on R forefoot # anticoagulated on warfarin - INR reversed with PO vit K. given high CVA risk will start bridging anticoagulation with LMWH until INR therapeutic; per Surgery OK to start tonight # HTN - continue lisinopril # AF - AC as above # DM2 - correction-dose lispro. 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
--- NOTE | 2020-10-22 11:42 | MHC.CM.PN ---
THIS PET SITTER CALLED DAUGHTER, BRIAN ([phone]) BRIAN IS ASKING FOR PATIENT TO BE PLACED IN SHORT TERM REHAB. DAUGHTER MADE AWARE THAT BECAUSE PATIENT IS ABLE TO MAKE DECISIONS FOR HERSELF, THAT SHE WOULD HAVE TO AGREE TO PLACEMENTS AND REFERRALS. DAUGHTER STATES I LASERIST AND IT WOULD JUST BE ALOT WHEN ASKED ALOT ON WHO? DAUGHTER INDICATED ALOT ON ME . THIS PET SITTER SUGGESTED THAT DAUGHTER CALL PATIENT AND HAVE THE CONVERSATION. DAUGHTER PREFERS THIS PET SITTER TO SPEAK WITH PATIENT ABOUT PLACEMENT FOR REHAB. THIS PET SITTER SAT WITH PATIENT AND EXPLAINED THE DAUGHTER'S DESIRES. PATIENT UNDERSTANDS THAT SHORT TERM REHAB IS A BED OFFER WHERE ONE SLEEPS AND PARTICIPATES IN REHAB UNTIL THEY ARE ABLE TO RETURN HOME. PATIENT ADAMANTLY DENYING. [facility] HOME CARE UPDATED WITH POSSIBLE RETURN HOME SUNDAY.
[2020-10-22 12:10] LABS: Glucose, Whole Blood 152 mg/dL (60-115)
[2020-10-22] MEDS: Linezolid 600 MG TABLET PO ×2 (12:50→23:23)
[2020-10-22] MEDS: Insulin Lispro 100 UNIT/ML 3 ML VIAL SUBCUT ×2 (12:50→21:03)
[2020-10-22 16:50] LABS: Glucose, Whole Blood 140 mg/dL (60-115)
[2020-10-22] MEDS: Warfarin Sodium 3 MG TABLET PO (17:15)
[2020-10-22] MEDS: Enoxaparin Sodium 100 MG/ML SYRINGE 85 MG SUBCUT (17:18)
[2020-10-22 21:20] LABS: Glucose, Whole Blood 165 mg/dL (60-115)
[2020-10-23 03:47] VITALS: BP 116/66; PULSE 83; RESP 16; TEMP 36.1; O2SAT 98
[2020-10-23] MEDS: Enoxaparin Sodium 100 MG/ML SYRINGE 85 MG SUBCUT ×2 (04:34→17:14)
[2020-10-23 08:00] VITALS: BP 106/44; PULSE 83; RESP 18; TEMP 36.3; O2SAT 100
[2020-10-23 08:06] LABS: Glucose, Whole Blood 110 mg/dL (60-115)
[2020-10-23 08:10] LABS: INTERNATIONAL NORM RATIO 1.3 (0.9-1.1); Prothrombin Time 15.2 SEC (10.8-13.0)
[2020-10-23 08:50] LABS: Vancomycin Trough 5.9 mcg/mL (10.0-20.0)
--- NOTE | 2020-10-23 10:39 | HO.PM.IMPN ---
Subjective Subjective Date of Service: 10/23/20 Interval History: No postoperative pain No complaints Switched from IV to PO ABX Physical Exam Vital Signs: Vital Signs: Last Vital Signs Temp 97.3 F 10/23/20 08:00 Pulse 83 10/23/20 08:00 Resp 18 10/23/20 08:00 BP 106/44 L 10/23/20 08:00 Pulse Ox 100 10/23/20 08:00 Body Mass Index 34.7 Gen: in no acute distress HEENT: sclera anicteric, moist mucus membranes Neck: supple Lungs: clear to auscultation bilaterally Heart: regular rate and rhythm, no murmurs Abd: soft, non-tender, non-distended Ext: no edema Skin: R foot in dressing Neuro: alert and oriented x3, some degree of expressive aphasia and right hemiparesis Psych: appropriate affect Objective Data Current Medications Generic Name Dose Route Start Last Admin Trade Name Freq PRN Reason Stop Dose Admin Acetaminophen 650 mg 10/15/20 20:06 Acetaminophen 325 Mg Tablet PO Q6H PRN Pain, Mild (Pain Scale 1-3) Enoxaparin Sodium 85 mg 10/22/20 16:00 10/23/20 04:34 Enoxaparin Sodium 100 Mg/Ml Syringe 1 mg/kg (85 mg) 85 mg SUBCUT Administration Q12H [facility] Insulin Human Lispro 0 unit 10/15/20 21:00 10/22/20 21:03 Insulin Lispro 100 Unit/Ml 3 Ml Vial SUBCUT 2 unit QIDACHS [facility] Administration Protocol Levetiracetam 750 mg 10/15/20 21:00 10/22/20 21:03 Levetiracetam 250 Mg Tablet PO 750 mg BID CRISTOPHER Administration Linezolid 600 mg 10/22/20 11:00 10/22/20 23:23 Linezolid 600 Mg Tablet PO 600 mg Q12H CRISTOPHER Administration Lisinopril 5 mg 10/16/20 09:00 10/22/20 08:55 Lisinopril 5 Mg Tablet PO 5 mg DAILY CRISTOPHER Administration Protocol Morphine Sulfate 2 mg 10/21/20 15:23 Morphine Sulfate 2 Mg/Ml Cartridge IVPUSH Q4H PRN Pain, Severe (Pain Scale 7-10) Nystatin 1 appl 10/15/20 22:45 10/22/20 21:04 Nystatin Powder 15 Gm Bottle TOPICAL 1 appl BID [facility] Administration Protocol Ondansetron HCl 4 mg 10/15/20 20:06 Ondansetron Hcl 4 Mg/2 Ml Vial IVPUSH Q8H PRN Nausea and Vomiting Oxycodone HCl 5 mg 10/21/20 15:23 Oxycodone Hcl Immed Release 5 Mg Tablet PO Q4H PRN Pain, Moderate (Pain Scale 4-6 Sodium Chloride 3 ml 10/16/20 00:00 10/22/20 23:24 0.9 % Sodium Chloride Flush 3 Ml Syringe IVFLUSH Not Given QSHIFT [facility] Warfarin Sodium 3 mg 10/16/20 18:00 10/22/20 17:15 Warfarin Sodium 3 Mg Tablet PO 3 mg DAILY@1800 [facility] Administration Warfarin Sodium 3 mg 10/23/20 18:00 Warfarin Sodium 3 Mg Tablet PO 10/23/20 18:01 ONCE@1800 [facility] Labs CBC & Chem 7: 10/22/20 06:34 10/22/20 06:34 Labs: Laboratory Results - last 24 hr 10/22/20 10/22/20 10/22/20 11:40 16:32 20:55 PT INR POC Glucose 152 H 140 H 165 H Vancomycin Trough 10/23/20 10/23/20 10/23/20 07:53 07:53 07:58 PT 15.2 H INR 1.3 H POC Glucose 110 Vancomycin Trough 5.9 L Microbiology Microbiology Results: Microbiology 10/15/20 17:00 Blood - Venous Blood Culture - Final No growth after 5 days. 10/15/20 16:47 Blood - Venous Blood Culture - Final No growth after 5 days. 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 warfarin resumed 10/22. given high CVA risk, started bridging anticoagulation with LMWH until INR therapeutic; will give extra 3mg of warfarin today [on 3mg daily] # HTN - continue lisinopril # AF - AC as above # DM2 - correction-dose lispro. 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
[2020-10-23 11:50] VITALS: BP 115/52; PULSE 88; RESP 15; TEMP 36.4; O2SAT 99
[2020-10-23 11:57] LABS: Glucose, Whole Blood 167 mg/dL (60-115)
[2020-10-23] MEDS: 0.9 % Sodium Chloride Flush 3 ML SYRINGE IVFLUSH ×2 (11:58→17:14)
[2020-10-23] MEDS: Linezolid 600 MG TABLET PO ×2 (11:58→21:49)
[2020-10-23] MEDS: levETIRAcetam 250 MG TABLET 750 MG PO ×2 (11:58→21:49)
[2020-10-23] MEDS: Insulin Lispro 100 UNIT/ML 3 ML VIAL SUBCUT (11:59)
[2020-10-23] MEDS: Nystatin Powder 15 GM BOTTLE 1 APPL TOPICAL ×2 (11:59→21:52)
[2020-10-23 13:03] LABS: COVID-19 Test Negative (Negative)
[2020-10-23 15:49] VITALS: BP 142/74; PULSE 84; RESP 16; TEMP 36.4; O2SAT 100
[2020-10-23 16:20] LABS: Glucose, Whole Blood 97 mg/dL (60-115)
[2020-10-23] MEDS: Warfarin Sodium 3 MG TABLET PO ×2 (17:14→17:15)
[2020-10-23 19:39] VITALS: BP 143/65; PULSE 90; RESP 14; TEMP 35.8; O2SAT 98
[2020-10-23 20:05] LABS: Glucose, Whole Blood 127 mg/dL (60-115)
[2020-10-23 23:53] VITALS: BP 148/53; PULSE 100; RESP 18; TEMP 36.4; O2SAT 100
[2020-10-24] MEDS: diphenhydrAMINE HCL 25 MG TABLET PO (03:12)
[2020-10-24] MEDS: Enoxaparin Sodium 100 MG/ML SYRINGE 85 MG SUBCUT ×2 (03:13→17:09)
[2020-10-24 03:19] VITALS: BP 133/65; PULSE 90; RESP 18; TEMP 36.4; O2SAT 99
[2020-10-24 07:19] VITALS: BP 130/62; PULSE 86; RESP 15; TEMP 36.1; O2SAT 98
[2020-10-24 07:44] LABS: MANUAL DIFF FLAG NO
[2020-10-24 07:50] LABS: Basophils Percent Auto 0.5 % (0-2); Eosinophils Absolute Auto 0.2 X10*3/uL (0.0-0.4); Eosinophils Percent Auto 3.4 % (0-4); Hematocrit 34.2 % (37-47); Imm Gran Abs Auto 0.01 X10*3/uL (0.00-0.03); Imm Gran Pct Auto 0.2 % (0.0-0.4); Lymphocytes Absolute Auto 1.8 X10*3/uL (1.2-4.9); Lymphocytes Percent Auto 28.4 % (20-40); Mean Corpuscular HGB Conc 32.2 g/dl (31.0-35.0); Mean Corpuscular Hemoglobin 30.4 pg (27.0-33.0); Mean Corpuscular Volume 94.5 fL (80-98); Mean Platelet Volume 8.9 fL (9.4-12.3); Monocytes Absolute Auto 0.5 X10*3/uL (0.1-1.2); Monocytes Percent Auto 7.7 % (2-11); Neutrophils Absolute Auto 3.7 X10*3/uL (2.0-8.3); Neutrophils Percent Auto 59.8 % (45-73); Platelet Count 248 X10*3/uL (160-400); Red Blood Count 3.62 X10*6/uL (4.20-5.50); Red Cell Distribution Width 13.1 % (11.0-16.0); White Blood Count 6.2 X10*3/uL (4.8-10.8)
[2020-10-24 07:53] LABS: Glucose, Whole Blood 111 mg/dL (60-115)
[2020-10-24 08:07] LABS: INTERNATIONAL NORM RATIO 1.5 (0.9-1.1); Prothrombin Time 18.4 SEC (10.8-13.0)
[2020-10-24 08:16] LABS: Anion Gap 14 (12-20); Blood Urea Nitrogen 14 mg/dL (9-16); C Reactive Protein 2.06 mg/dL (< or = 0.50); Calcium 8.7 mg/dL (8.4-10.2); Carbon Dioxide 24 mmol/L (22-29); Chloride 105 mmol/L (96-108); Creatinine Clr Calc Pharmacy 76.2; Estimated Glomerular Filt Rate > 60; Glucose Random 114 mg/dL (60-115); Potassium 4.6 mmol/L (3.3-5.1); Sodium 138 mmol/L (135-145)
[2020-10-24 08:46] VITALS: BP 130/62; PULSE 86
[2020-10-24] MEDS: levETIRAcetam 250 MG TABLET 750 MG PO ×2 (08:46→20:22)
[2020-10-24] MEDS: Nystatin Powder 15 GM BOTTLE 1 APPL TOPICAL ×2 (08:47→20:23)
[2020-10-24 09:03] LABS: Erythrocyte Sedimentation Rate 89 MM/HR (0-20)
[2020-10-24 11:01] VITALS: BP 116/65; PULSE 96; RESP 18; TEMP 36.6; O2SAT 96
[2020-10-24 11:39] LABS: Glucose, Whole Blood 178 mg/dL (60-115)
[2020-10-24] MEDS: Linezolid 600 MG TABLET PO ×2 (11:53→23:04)
[2020-10-24] MEDS: Insulin Lispro 100 UNIT/ML 3 ML VIAL SUBCUT ×2 (11:53→20:22)
--- NOTE | 2020-10-24 12:46 | MHC.CM.PN ---
PATIENT TO TRANSFER TO [facility]. DAUGHTER/HCP BRIAN ([phone]) AWARE OF PLAN. [place]SPORT SCHEDULED FOR 14:00 [place] [facility] [place] IMM 10/23 IN CHART. [facility] MADE AWARE TO FOLLOW FROM FACILITY.
--- NOTE | 2020-10-24 13:42 | P.DS_ITS ---
DS: Providers Provider Date of Service: 11/05/20 Date of admission: 10/15/20 20:06 Primary care physician: Marilin Fink MD Consults: 10/15/20 20:06 Consult to General Surgery Routine Consulting Provider: Osmin Parada Reason for consultation: osteomyelitis, diabetic wound Has provider been notified: No 10/15/20 20:33 Consult to Infectious Diseases Routine Consulting Provider: Heather Blancas Reason for consultation: osteomyelitis Has provider been notified: No 10/17/20 07:25 Consult to Vascular Surgery Routine Consulting Provider: Reji Silvestre Reason for consultation: pvr DS: Diagnosis Discharge Diagnosis (1) Osteomyelitis of fifth toe of right foot: Status: Acute (2) Status post amputation of toe of right foot: Status: Acute (3) On Coumadin for atrial fibrillation: Status: Acute (4) Diabetes mellitus: Status: Acute DS: Medications Discharge Medications Home Medications: Home Medications Medication Instructions Recorded Confirmed levetiracetam 750 tab PO BID 10/15/20 10/15/20 lisinopril 5 mg PO DAILY 10/15/20 10/16/20 metformin 500 tab PO BID 10/15/20 10/15/20 warfarin 3 mg PO DAILY 10/15/20 10/15/20 Previous Rx's Medication Instructions Recorded enoxaparin 85 mg SUBCUT Q12H #6 ea 10/24/20 linezolid 600 mg PO Q12H 12 Days #24 tab 10/24/20 oxycodone 5 mg PO Q4H PRN #20 tab 10/24/20 DS: Summary Hospital Course Hospital Course: from the admission history and physical by hospitalist YVON Lerma, 10/15/20: 70 year old women presented with diabetic foot wound that has been ongoing for some time. She was seen at the wound clinic today and was sent to the ED due to poor wound healing and possible abscess or osteomyelitis. She has a history of stroke and some aphagia and is somewhat vague. She reports some pain to her right foot. She has no fever or leukocytosis. She received Vanco and Zosyn in the ED. The patient was admitted to the medical/surgical floor. She was not septic. She was started on vancomycin and piperacillin/tazobactam and ended up receiving a total of 7 days of IV antibiotics. CT demonstrated osteomyelitis of the 5th toe and metatarsal head. After some initial hesitation, she underwent amputation of the infected 5th toe and resection of the 5th metatarsal head on 10/21/20. Her INR was reversed with oral vitamin K. Warfarin was resumed on postoperative day 1 and she was given bridging enoxaparin due to high stroke risk. INR on the day of discharge was 2 (first therapeutic value) and enoxaparin should be continued along with daily INR checks until the INR is 2 or greater for two days in a row (i.e one more day). 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 She will need 11 more days of oral linezolid. She was discharged to a SNF for wound care and physical therapy. She should avoid bearing weight on the right forefoot. She will follow up with the surgeon and with the infecious disease specialist in 2 weeks. Anticipated discharge on 10/24/20 was delayed by 1 day due to SNF bed unavailability. Patient remained in the hospital til 10/25/20. Please refer to discharge summary by Dr Cutler from 10/25/20 for updated events. Time Spent with Patient Time attestation: Total time spent providing and/or coordinating discharge services: 45 Discharge coordination time: Greater than 30 minutes Physical Exam Vital Signs: Vital Signs: Last Vital Signs Temp 97.9 F 10/24/20 11:01 Pulse 96 10/24/20 11:01 Resp 18 10/24/20 11:01 BP 116/65 10/24/20 11:01 Pulse Ox 96 10/24/20 11:01 Body Mass Index 34.7 Gen: in no acute distress HEENT: sclera anicteric, moist mucus membranes Neck: supple Lungs: clear to auscultation bilaterally Heart: regular rate and rhythm, no murmurs Abd: soft, non-tender, non-distended Ext: no edema Skin: lateral 5th toe wound with sutures clean/dry/intact, no purulence Neuro: alert and oriented x3, some degree of expressive aphasia and right hemiparesis Psych: appropriate affect DS: Data Data Completed and Pending Pending studies at discharge: Pending at discharge 10/21/20 14:07 Surgical [PTH] Routine Labs on day of discharge: Laboratory Results WBC 6.2 X10*3/uL (4.8-10.8) 10/24/20 07:07 RBC 3.62 X10*6/uL (4.20-5.50) L 10/24/20 07:07 Hgb 11.0 g/dl (12.0-16.0) L 10/24/20 07:07 Hct 34.2 % (37-47) L 10/24/20 07:07 MCV 94.5 fL (80-98) 10/24/20 07:07 MCH 30.4 pg (27.0-33.0) 10/24/20 07:07 MCHC 32.2 g/dl (31.0-35.0) 10/24/20 07:07 RDW 13.1 % (11.0-16.0) 10/24/20 07:07 Plt Count 248 X10*3/uL (160-400) 10/24/20 07:07 MPV 8.9 fL (9.4-12.3) L 10/24/20 07:07 Immature Gran % (Auto) 0.2 % (0.0-0.4) 10/24/20 07:07 Neut % (Auto) 59.8 % (45-73) 10/24/20 07:07 Lymph % (Auto) 28.4 % (20-40) 10/24/20 07:07 [place] % (Auto) 7.7 % (2-11) 10/24/20 07:07 Eos % (Auto) 3.4 % (0-4) 10/24/20 07:07 Baso % (Auto) 0.5 % (0-2) 10/24/20 07:07 Lymph # (Auto) 1.8 X10*3/uL (1.2-4.9) 10/24/20 07:07 [place] # (Auto) 0.5 X10*3/uL (0.1-1.2) 10/24/20 07:07 Eos # (Auto) 0.2 X10*3/uL (0.0-0.4) 10/24/20 07:07 Baso # (Auto) 0.0 X10*3/uL (0.0-0.2) 10/24/20 07:07 Abs Immat Gran (auto) 0.01 X10*3/uL (0.00-0.03) 10/24/20 07:07 Absolute Neuts (auto) 3.7 X10*3/uL (2.0-8.3) 10/24/20 07:07 Absolute Nucleated RBC 0.000 X10*3/uL (0.0-0.012) 10/24/20 07:07 Nucleated RBC % (auto) 0.0 /100WBC (0.0-0.2) 10/24/20 07:07 ESR 89 MM/HR (0-20) H 10/24/20 07:07 PT 18.4 SEC (10.8-13.0) H D 10/24/20 07:07 INR 1.5 (0.9-1.1) H 10/24/20 07:07 Sodium 138 mmol/L (135-145) 10/24/20 07:07 Potassium 4.6 mmol/L (3.3-5.1) 10/24/20 07:07 Chloride 105 mmol/L (96-108) 10/24/20 07:07 Carbon Dioxide 24 mmol/L (22-29) 10/24/20 07:07 Anion Gap 14 (12-20) 10/24/20 07:07 BUN 14 mg/dL (9-16) 10/24/20 07:07 Creatinine 0.69 mg/dL (0.5-1.4) 10/24/20 07:07 Estim Creat Clear Calc 76.2 10/24/20 07:07 Estimated GFR > 60 10/24/20 07:07 POC Glucose 178 mg/dL (60-115) H 10/24/20 11:03 Random Glucose 114 mg/dL (60-115) 10/24/20 07:07 Fasting Glucose 158 mg/dL (60-99) H 10/18/20 06:15 Estimat Average Glucose 117 mg/dL 10/18/20 06:15 Hemoglobin A1c % 5.7 % 10/18/20 06:15 Lactic Acid 1.3 mmol/L (0.5-2.0) 10/15/20 16:47 Calcium 8.7 mg/dL (8.4-10.2) 10/24/20 07:07 Total Bilirubin 0.8 mg/dL (0.0-1.0) 10/15/20 16:47 Direct Bilirubin 0.3 mg/dL (0.0-0.5) 10/15/20 16:47 AST 14 U/L (5-31) 10/15/20 16:47 ALT 14 U/L (0-31) 10/15/20 16:47 Alkaline Phosphatase 58 U/L (39-117) 10/15/20 16:47 C-Reactive Protein 2.06 mg/dL (< or = 0.50) H 10/24/20 07:07 Total Protein 7.5 g/dL (6.5-8.0) 10/15/20 16:47 Albumin 4.1 g/dL (3.5-5.0) 10/15/20 16:47 Urine Color YELLOW 10/15/20 19:03 Urine Appearance CLEAR 10/15/20 19:03 Urine pH 5.5 (5.0-8.0) 10/15/20 19:03 Ur Specific [place] 1.010 (1.005-1.025) 10/15/20 19:03 Urine Protein NEG MG/DL (NEG-TRACE) 10/15/20 19:03 Urine Glucose (UA) NEG MG/DL (NEG) 10/15/20 19:03 Urine Ketones NEG MG/DL (NEG) 10/15/20 19:03 Urine Blood NEG (NEG) 10/15/20 19:03 Urine Nitrite NEG (NEG) 10/15/20 19:03 Ur Leukocyte Esterase NEG (NEG) 10/15/20 19:03 Vancomycin Trough 5.9 mcg/mL (10.0-20.0) L 10/23/20 07:53 Random Vancomycin 15.8 mcg/mL (15-20) 10/19/20 19:59 COVID-19 (TRISH) Negative (Negative) 10/23/20 12:32 COVID-19 Clin Com See Note 10/23/20 12:32 Impressions Foot X-Ray 10/15/20 16:26 IMPRESSION: Lateral soft tissue wound superficial with erosive changes at the fifth metatarsophalangeal joint as detailed above concerning for osteomyelitis. Foot CT 10/16/20 13:45 IMPRESSION: Evidence of osteomyelitis involving the 5th metatarsal head and likely the base of the proximal phalanx. Duplex Scan Lower Extremity Artery 10/18/20 08:57 IMPRESSION: 1. Normal bilateral ankle-brachial indices. 2. No focal hemodynamically significant velocity shift is seen in the inflow or outflow vessels. 3. The left posterior tibial artery is not visualized and may be occluded. The right posterior tibial artery velocity is very low and the waveform is biphasic. This raises the possibility of small vessel disease in this patient. Abd US [id number] 10/18/20 16:03 IMPRESSION: 1. Normal bilateral ankle-brachial indices. 2. No focal hemodynamically significant velocity shift is seen in the inflow or outflow vessels. 3. The left posterior tibial artery is not visualized and may be occluded. The right posterior tibial artery velocity is very low and the waveform is biphasic. This raises the possibility of small vessel disease in this patient. Discharge Plan Discharge Patient Disposition: [facility]errals: [facility] [Outside] [facility] [Outside] Marilin Fink MD [Primary Care Provider] - (1 week f/u with PCP ) Heather Blancas MD [Physician] - (2 wk f/u osteomyelitis) Osmin Parada MD [Physician] - (2 wk for suture removal) Discharge Medications: New linezolid 600 mg Tablet 600 mg PO Q12H 12 Days Qty: 24 RF: 0 oxycodone 5 mg Tablet 5 mg PO Q4H PRN (Reason: Pain, Moderate (Pain Scale 4-6) Qty: 20 RF: 0 enoxaparin 100 mg/mL Syringe 85 mg subcut Q12H Qty: 6 RF: 0 Continued metformin 500 mg tablet 500 tab PO BID RF: 0 warfarin 3 mg tablet 3 mg PO DAILY RF: 0 levetiracetam 750 mg tablet 750 tab PO BID RF: 0 lisinopril 5 mg tablet 5 mg PO DAILY RF: 0 Discharge Orders: Discharge Order (Routine); Ordered 10/24/20 Ordered By: Laurita Engle Diet: diabetic diet Activity on Discharge: As tolerated Stand Alone Forms: Patient Portal Discharge page Other Ambulatory Orders: Prothrombin Time INR (DAILY) Timeframe: 20201026 Facility: [facility] - Location: Laboratory Ordered By: Laurita Engle Prothrombin Time INR (DAILY) Timeframe: 20201027 Facility: [facility] - Location: Laboratory Ordered By: Laurita Engle Prothrombin Time INR (DAILY) Timeframe: 20201028 Facility: [facility] - Location: Laboratory Ordered By: Laurita Engle Prothrombin Time INR (DAILY) Timeframe: 20201029 Facility: [facility] - Location: Laboratory Ordered By: Laurita Engle Activity Restrictions/Additional Instructions: avoid bearing weight on right forefoot Care Plan Goals: cure foot infection avoid hospitalization prevent stroke Health Concerns: osteomyelitis of the right fifth toe and metatarsal head on warfarin for prevention of embolic stroke from atrial fibrillation Plan of Treatment: INR on 10/24/20 is 1.5. check INR daily and take enoxaparin 85 mg twice daily until INR is 2 or more for two days in a row, then stop enoxaparin amputation and excision done 10/21/20; elevated the right foot; daily dressing changes with fluffs, Kerlix and NAI wrap take linezolid 600 mg twice daily for 12 more days follow up in [address] Parada for suture removal: [facility] [address] [place] [address] follow up in 2 weeks with infectious disease specialist Dr Blancas: [address], [address], [place] [address] Discharge Date/Time: 10/25/20 14:46
--- NOTE | 2020-10-24 13:50 | HO.PM.IMPN ---
Subjective Subjective Date of Service: 10/24/20 Interval History: no pain no fever feels well awaiting STR Physical Exam Vital Signs: Vital Signs: Last Vital Signs Temp 97.9 F 10/24/20 11:01 Pulse 96 10/24/20 11:01 Resp 18 10/24/20 11:01 BP 116/65 10/24/20 11:01 Pulse Ox 96 10/24/20 11:01 Body Mass Index 34.7 Gen: in no acute distress HEENT: sclera anicteric, moist mucus membranes Neck: supple Lungs: clear to auscultation bilaterally Heart: regular rate and rhythm, no murmurs Abd: soft, non-tender, non-distended Ext: no edema Skin: lateral 5th toe wound with sutures clean/dry/intact, no purulence Neuro: alert and oriented x3, some degree of expressive aphasia and right hemiparesis Psych: appropriate affect Objective Data Current Medications Generic Name Dose Route Start Last Admin Trade Name Freq PRN Reason Stop Dose Admin Acetaminophen 650 mg 10/15/20 20:06 Acetaminophen 325 Mg Tablet PO Q6H PRN Pain, Mild (Pain Scale 1-3) Enoxaparin Sodium 85 mg 10/22/20 16:00 10/24/20 03:13 Enoxaparin Sodium 100 Mg/Ml Syringe 1 mg/kg (85 mg) 85 mg SUBCUT Administration Q12H [facility] Insulin Human Lispro 0 unit 10/15/20 21:00 10/24/20 11:53 Insulin Lispro 100 Unit/Ml 3 Ml Vial SUBCUT 2 unit QIDACHS [facility] Administration Protocol Levetiracetam 750 mg 10/15/20 21:00 10/24/20 08:46 Levetiracetam 250 Mg Tablet PO 750 mg BID [facility] Administration Linezolid 600 mg 10/22/20 11:00 10/24/20 11:53 Linezolid 600 Mg Tablet PO 600 mg Q12H [facility] Administration Lisinopril 5 mg 10/16/20 09:00 10/24/20 08:46 Lisinopril 5 Mg Tablet PO 5 mg DAILY [facility] Administration Protocol Morphine Sulfate 2 mg 10/21/20 15:23 Morphine Sulfate 2 Mg/Ml Cartridge IVPUSH Q4H PRN Pain, Severe (Pain Scale 7-10) Nystatin 1 appl 10/15/20 22:45 10/24/20 08:47 Nystatin Powder 15 Gm Bottle TOPICAL 1 appl BID [facility] Administration Protocol Ondansetron HCl 4 mg 10/15/20 20:06 Ondansetron Hcl 4 Mg/2 Ml Vial IVPUSH Q8H PRN Nausea and Vomiting Oxycodone HCl 5 mg 10/21/20 15:23 Oxycodone Hcl Immed Release 5 Mg Tablet PO Q4H PRN Pain, Moderate (Pain Scale 4-6 Sodium Chloride 3 ml 10/16/20 00:00 10/24/20 08:46 0.9 % Sodium Chloride Flush 3 Ml Syringe IVFLUSH Not Given QSHIFT [facility] Warfarin Sodium 3 mg 10/16/20 18:00 10/23/20 17:15 Warfarin Sodium 3 Mg Tablet PO 3 mg DAILY@1800 [facility] Administration Labs CBC & Chem 7: 10/24/20 07:07 10/24/20 07:07 Labs: Laboratory Results - last 24 hr 10/23/20 10/23/20 10/24/20 16:16 19:58 07:07 WBC RBC Hgb Hct MCV MCH MCHC RDW Plt Count MPV Immature Gran % (Auto) Neut % (Auto) Lymph % (Auto) [place] % (Auto) Eos % (Auto) Baso % (Auto) Lymph # (Auto) [place] # (Auto) Eos # (Auto) Baso # (Auto) Abs Immat Gran (auto) Absolute Neuts (auto) Absolute Nucleated RBC Nucleated RBC % (auto) ESR PT 18.4 H D INR 1.5 H Sodium Potassium Chloride Carbon Dioxide Anion Gap BUN Creatinine Estim Creat Clear Calc Estimated GFR POC Glucose 97 127 H Random Glucose Calcium C-Reactive Protein 10/24/20 10/24/20 10/24/20 07:07 07:07 07:07 WBC 6.2 RBC 3.62 L Hgb 11.0 L Hct 34.2 L MCV 94.5 MCH 30.4 MCHC 32.2 RDW 13.1 Plt Count 248 MPV 8.9 L Immature Gran % (Auto) 0.2 Neut % (Auto) 59.8 Lymph % (Auto) 28.4 [place] % (Auto) 7.7 Eos % (Auto) 3.4 Baso % (Auto) 0.5 Lymph # (Auto) 1.8 [place] # (Auto) 0.5 Eos # (Auto) 0.2 Baso # (Auto) 0.0 Abs Immat Gran (auto) 0.01 Absolute Neuts (auto) 3.7 Absolute Nucleated RBC 0.000 Nucleated RBC % (auto) 0.0 ESR 89 H PT INR Sodium 138 Potassium 4.6 Chloride 105 Carbon Dioxide 24 Anion Gap 14 BUN 14 Creatinine 0.69 Estim Creat Clear Calc 76.2 Estimated GFR > 60 POC Glucose Random Glucose 114 Calcium 8.7 C-Reactive Protein 2.06 H 10/24/20 10/24/20 07:18 11:03 WBC RBC Hgb Hct MCV MCH MCHC RDW Plt Count MPV Immature Gran % (Auto) Neut % (Auto) Lymph % (Auto) [place] % (Auto) Eos % (Auto) Baso % (Auto) Lymph # (Auto) [place] # (Auto) Eos # (Auto) Baso # (Auto) Abs Immat Gran (auto) Absolute Neuts (auto) Absolute Nucleated RBC Nucleated RBC % (auto) ESR PT INR Sodium Potassium Chloride Carbon Dioxide Anion Gap BUN Creatinine Estim Creat Clear Calc Estimated GFR POC Glucose 111 178 H Random Glucose Calcium C-Reactive Protein Microbiology Microbiology Results: Microbiology 10/15/20 17:00 Blood - Venous Blood Culture - Final No growth after 5 days. 10/15/20 16:47 Blood - Venous Blood Culture - Final No growth after 5 days. 10/15/20 21:34 Foot Right Gram Stain - Final 10/15/20 21:34 Foot Right Routine Culture - Final Enterococcus faecalis Assessment and Plan (1) Osteomyelitis of fifth toe of right foot: Status: Acute Assessment and Plan: hospital d#9 70yo F with DM2 sent in from clinic for non-healing R foot ulcer, found to have osteomyelitis # R foot osteomyelitis - completed vanc + pip/jose #7, per ID on linezolid #3/ given hx of MRSA from wound - POD #3 amputation of 5th toe/resection of 5th MT head by Dr Parada; elevate R foot and avoid bearing weight on forefoot; daily dressing changes with fluffs, Kerlix and Zack wrap # anticoagulated on warfarin - INR reversed with PO vit K. warfarin resumed 2. given high CVA risk, started bridging anticoagulation with LMWH, continue until INR therapeutic x2d # HTN - continue lisinopril # AF - AC as above # DM2 - correction-dose lispro. 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
--- NOTE | 2020-10-24 13:58 | MHC.CM.PN ---
[employer] CONTACTED THIS RESIDENTIAL [employer] APPRAISER TO SAY THAT BED OFFER IS CANCELLED. ACCORDING TO LIAISON, [facility] HAS PLACED A FREEZE ON ADMISSIONS TO ALL THREE SISTER FACILTIES. REFERRAL PACED TO [facility] AND [facility]. [facility] ON HOLD (PER CONVERSATION WITH GINO OF DISPATCH) HOSPITALIST AND RN MADE AWARE.
[2020-10-24 16:00] VITALS: BP 115/65; PULSE 87; RESP 13; TEMP 36.2; O2SAT 99
[2020-10-24 17:02] LABS: Glucose, Whole Blood 108 mg/dL (60-115)
[2020-10-24] MEDS: Warfarin Sodium 3 MG TABLET PO (17:10)
[2020-10-24 19:17] VITALS: BP 155/70; PULSE 98; RESP 20; TEMP 36.4; O2SAT 97
[2020-10-24 20:08] LABS: Glucose, Whole Blood 233 mg/dL (60-115)
[2020-10-25] VITALS: BP 125/64; PULSE 84; RESP 18; TEMP 36.4
[2020-10-25 04:00] VITALS: BP 122/66; PULSE 94; RESP 18; TEMP 36.1; O2SAT 99
[2020-10-25] MEDS: Enoxaparin Sodium 100 MG/ML SYRINGE 85 MG SUBCUT (04:43)
[2020-10-25 06:46] LABS: Prothrombin Time 23.9 SEC (10.8-13.0)
[2020-10-25 07:31] VITALS: BP 126/59; PULSE 81; RESP 15; TEMP 36.7; O2SAT 99
[2020-10-25 08:23] LABS: Glucose, Whole Blood 118 mg/dL (60-115)
[2020-10-25] MEDS: Nystatin Powder 15 GM BOTTLE 1 APPL TOPICAL (08:35)
[2020-10-25] MEDS: levETIRAcetam 250 MG TABLET 750 MG PO (08:35)
--- NOTE | 2020-10-25 10:24 | P.PNIM_ITS ---
Subjective Subjective Date of Service: 10/25/20 Interval History: no copmlaints Cardiovascular Cardiovascular: Reports no additional cardiovascular complaints Gastrointestinal Gastrointestinal: Reports no additional gastrointestinal complaints Physical Exam Vital Signs: Vital Signs: Last Vital Signs Temp 98.0 F 10/25/20 07:31 Pulse 81 10/25/20 07:31 Resp 15 10/25/20 07:31 BP 126/59 L 10/25/20 07:31 Pulse Ox 99 10/25/20 07:31 Body Mass Index 34.7 General: AO X 3, no acute distress Resp: CTA bilateral CVS: S1,S2,RRR GI: soft, non tender, non distended Neuro: expressive aphasia Psych: appropriate affect Objective Data Current Medications Generic Name Dose Route Start Last Admin Trade Name Freq PRN Reason Stop Dose Admin Acetaminophen 650 mg 10/15/20 20:06 Acetaminophen 325 Mg Tablet PO Q6H PRN Pain, Mild (Pain Scale 1-3) Enoxaparin Sodium 85 mg 10/22/20 16:00 10/25/20 04:43 Enoxaparin Sodium 100 Mg/Ml Syringe 1 mg/kg (85 mg) 85 mg SUBCUT Administration Q12H [facility] Insulin Human Lispro 0 unit 10/15/20 21:00 10/25/20 08:34 Insulin Lispro 100 Unit/Ml 3 Ml Vial SUBCUT Not Given QIDACHS [facility] Protocol Levetiracetam 750 mg 10/15/20 21:00 10/25/20 08:35 Levetiracetam 250 Mg Tablet PO 750 mg BID [facility] Administration Linezolid 600 mg 10/22/20 11:00 10/24/20 23:04 Linezolid 600 Mg Tablet PO 600 mg Q12H [facility] Administration Lisinopril 5 mg 10/16/20 09:00 10/25/20 08:35 Lisinopril 5 Mg Tablet PO 5 mg DAILY [facility] Administration Protocol Morphine Sulfate 2 mg 10/21/20 15:23 Morphine Sulfate 2 Mg/Ml Cartridge IVPUSH Q4H PRN Pain, Severe (Pain Scale 7-10) Nystatin 1 appl 10/15/20 22:45 10/25/20 08:35 Nystatin Powder 15 Gm Bottle TOPICAL 1 appl BID [facility] Administration Protocol Ondansetron HCl 4 mg 10/15/20 20:06 Ondansetron Hcl 4 Mg/2 Ml Vial IVPUSH Q8H PRN Nausea and Vomiting Oxycodone HCl 5 mg 10/21/20 15:23 Oxycodone Hcl Immed Release 5 Mg Tablet PO Q4H PRN Pain, Moderate (Pain Scale 4-6 Sodium Chloride 3 ml 10/16/20 00:00 10/25/20 08:35 0.9 % Sodium Chloride Flush 3 Ml Syringe IVFLUSH Not Given QSHIFT [facility] Warfarin Sodium 3 mg 10/16/20 18:00 10/24/20 17:10 Warfarin Sodium 3 Mg Tablet PO 3 mg DAILY@1800 [facility] Administration Labs CBC & Chem 7: 10/24/20 07:07 10/24/20 07:07 Microbiology Microbiology Results: Microbiology 10/15/20 17:00 Blood - Venous Blood Culture - Final No growth after 5 days. 10/15/20 16:47 Blood - Venous Blood Culture - Final No growth after 5 days. 10/15/20 21:34 Foot Right Gram Stain - Final 10/15/20 21:34 Foot Right Routine Culture - Final Enterococcus faecalis Assessment and Plan (1) Status post amputation of toe of right foot: Status: Acute (2) PVD (peripheral vascular disease): Status: Acute (3) Osteomyelitis of fifth toe of right foot: Status: Acute (4) On Coumadin for atrial fibrillation: Status: Acute (5) Diabetes mellitus: Status: Acute (6) Right foot infection: Status: Acute Assessment and Plan: hospital d#10 70yo F with DM2 sent in from clinic for non-healing R foot ulcer, found to have osteomyelitis # R foot osteomyelitis - completed vanc + pip/jose #7, per ID on linezolid #4/ given hx of MRSA from wound - POD #4 amputation of 5th toe/resection of 5th MT head by Dr Parada; elevate R foot and avoid bearing weight on forefoot; daily dressing changes with fluffs, Kerlix and Zack wrap # anticoagulated on warfarin - INR reversed with PO vit K. warfarin resumed 10/22. given high CVA risk, started bridging anticoagulation with LMWH, continue until INR therapeutic x2d # HTN - continue lisinopril # AF - AC as above # DM2 - correction-dose lispro. 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
[2020-10-25 10:54] VITALS: BP 126/58; PULSE 98; RESP 16; TEMP 36.7; O2SAT 97
--- NOTE | 2020-10-25 11:20 | PM.PNGS ---
Subjective Subjective Date of Service: 10/25/20 Interval history: no events reported pt says she has a little pain on amputation site Physical Exam Vital Signs: Vital Signs: Last Vital Signs Temp 98.1 F 10/25/20 10:54 Pulse 98 10/25/20 10:54 Resp 16 10/25/20 10:54 BP 126/58 L 10/25/20 10:54 Pulse Ox 97 10/25/20 10:54 Body Mass Index 34.7 Chemistry 10/24/20 07:07 Sodium 138 Potassium 4.6 Carbon Dioxide 24 BUN 14 Creatinine 0.69 Calcium 8.7 Hematology 10/24/20 07:07 WBC 6.2 Hgb 11.0 L Plt Count 248 Const: General: comfortable and no acute distress Resp: Effort & Inspection: normal respiratory effort GI: Palpation (GI): Soft to palpation and nontender Extrem: Other: AMPUTATION site on right foot clean, sutures intact Progress Note: A&P Assessment and plan (1) Status post amputation of toe of right foot: Status: Acute Assessment and Plan: I have changed her dressings today incision clean, healing well continue daily dressing changes no weight bearing on forefoot, right rest of care as per Medical service Fall Risk Details Current Medications: Current Medications Generic Name Dose Route Start Last Admin Trade Name Freq PRN Reason Stop Dose Admin Acetaminophen 650 mg 10/15/20 20:06 Acetaminophen 325 Mg Tablet PO Q6H PRN Pain, Mild (Pain Scale 1-3) Enoxaparin Sodium 85 mg 10/22/20 16:00 10/25/20 04:43 Enoxaparin Sodium 100 Mg/Ml Syringe 1 mg/kg (85 mg) 85 mg SUBCUT Administration Q12H [facility] Insulin Human Lispro 0 unit 10/15/20 21:00 10/25/20 08:34 Insulin Lispro 100 Unit/Ml 3 Ml Vial SUBCUT Not Given QIDACHS [facility] Protocol Levetiracetam 750 mg 10/15/20 21:00 10/25/20 08:35 Levetiracetam 250 Mg Tablet PO 750 mg BID [facility] Administration Linezolid 600 mg 10/22/20 11:00 10/24/20 23:04 Linezolid 600 Mg Tablet PO 600 mg Q12H [facility] Administration Lisinopril 5 mg 10/16/20 09:00 10/25/20 08:35 Lisinopril 5 Mg Tablet PO 5 mg DAILY [facility] Administration Protocol Morphine Sulfate 2 mg 10/21/20 15:23 Morphine Sulfate 2 Mg/Ml Cartridge IVPUSH Q4H PRN Pain, Severe (Pain Scale 7-10) Nystatin 1 appl 10/15/20 22:45 10/25/20 08:35 Nystatin Powder 15 Gm Bottle TOPICAL 1 appl BID [facility] Administration Protocol Ondansetron HCl 4 mg 10/15/20 20:06 Ondansetron Hcl 4 Mg/2 Ml Vial IVPUSH Q8H PRN Nausea and Vomiting Oxycodone HCl 5 mg 10/21/20 15:23 Oxycodone Hcl Immed Release 5 Mg Tablet PO Q4H PRN Pain, Moderate (Pain Scale 4-6 Sodium Chloride 3 ml 10/16/20 00:00 10/25/20 08:35 0.9 % Sodium Chloride Flush 3 Ml Syringe IVFLUSH Not Given QSHIFT [facility] Warfarin Sodium 3 mg 10/16/20 18:00 10/24/20 17:10 Warfarin Sodium 3 Mg Tablet PO 3 mg DAILY@1800 [facility] Administration Time Spent With Patient Time: Total time spent is greater than 50% in coordination of care (as documented) at patient's floor/unit and/or counseling patient: Time with patient: 15 - 24 minutes
[2020-10-25 11:32] LABS: Glucose, Whole Blood 156 mg/dL (60-115)
--- NOTE | 2020-10-25 12:02 | P.DS_ITS ---
DS: Providers Provider Date of Service: 10/25/20 Date of admission: 10/15/20 20:06 Primary care physician: Marilin Fink MD Consults: 10/15/20 20:06 Consult to General Surgery Routine Consulting Provider: Osmin Parada Reason for consultation: osteomyelitis, diabetic wound Has provider been notified: No 10/15/20 20:33 Consult to Infectious Diseases Routine Consulting Provider: Heather Blancas Reason for consultation: osteomyelitis Has provider been notified: No 10/17/20 07:25 Consult to Vascular Surgery Routine Consulting Provider: Reji Silvestre Reason for consultation: pvr DS: Diagnosis Discharge Diagnosis (1) Status post amputation of toe of right foot: Status: Acute DS: Medications Discharge Medications Home Medications: Home Medications Medication Instructions Recorded Confirmed levetiracetam 750 tab PO BID 10/15/20 10/15/20 lisinopril 5 mg PO DAILY 10/15/20 10/16/20 metformin 500 tab PO BID 10/15/20 10/15/20 warfarin 3 mg PO DAILY 10/15/20 10/15/20 Previous Rx's Medication Instructions Recorded enoxaparin 85 mg SUBCUT Q12H #6 ea 10/24/20 linezolid 600 mg PO Q12H 12 Days #24 tab 10/24/20 oxycodone 5 mg PO Q4H PRN #20 tab 10/24/20 DS: Summary Hospital Course Hospital Course: from the admission history and physical by hospitalist YVON Lerma, 10/15/20: 70 year old women presented with diabetic foot wound that has been ongoing for some time. She was seen at the wound clinic today and was sent to the ED due to poor wound healing and possible abscess or osteomyelitis. She has a history of stroke and some aphagia and is somewhat vague. She reports some pain to her right foot. She has no fever or leukocytosis. She received Vanco and Zosyn in the ED. The patient was admitted to the medical/surgical floor. She was not septic. She was started on vancomycin and piperacillin/tazobactam and ended up receiving a total of 7 days of IV antibiotics. CT demonstrated osteomyelitis of the 5th toe and metatarsal head. After some initial hesitation, she underwent amputation of the infected 5th toe and resection of the 5th metatarsal head on 10/21/20. Her INR was reversed with oral vitamin K. Warfarin was resumed on postoperative day 1 and she was given bridging enoxaparin due to high stroke risk. INR on the day of discharge was 2 (first therapeutic value) and enoxaparin should be continued along with daily INR checks until the INR is 2 or greater for two days in a row (i.e one more day). 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 She will need 11 more days of oral linezolid. She was discharged to a SNF for wound care and physical therapy. She should avoid bearing weight on the right forefoot. She will follow up with the surgeon and with the infecious disease specialist in 2 weeks. Time Spent with Patient Time attestation: Total time spent providing and/or coordinating discharge services: Discharge coordination time: Greater than 30 minutes Physical Exam Vital Signs: Vital Signs: Last Vital Signs Temp 98.1 F 10/25/20 10:54 Pulse 98 10/25/20 10:54 Resp 16 10/25/20 10:54 BP 126/58 L 10/25/20 10:54 Pulse Ox 97 10/25/20 10:54 Body Mass Index 34.7 General: AO X 3, no acute distress Resp: CTA bilateral CVS: S1,S2,RRR GI: soft, non tender, non distended Neuro: expressive aphasia, right hemiparesis Psych: appropriate affect Skin: lateral 5th toe wound with sutures clean/dry/intact, no purulence DS: Data Data Completed and Pending Pending studies at discharge: Pending at discharge 10/21/20 14:07 Surgical [PTH] Routine Labs on day of discharge: Laboratory Results - last 24 hr 10/24/20 10/24/20 10/25/20 16:54 19:59 06:10 PT 23.9 H D INR 2.0 H POC Glucose 108 233 H 10/25/20 10/25/20 07:29 10:54 PT INR POC Glucose 118 H 156 H Discharge Plan Discharge Patient Disposition: [facility] Referrals: [facility] [Outside] [facility] [Outside] [facility] [Outside] Marilin Fink MD [Primary Care Provider] - (1 week f/u with PCP ) Heather Blancas MD [Physician] - (2 wk f/u osteomyelitis) Osmin Parada MD [Physician] - (2 wk for suture removal) Discharge Medications: New linezolid 600 mg Tablet 600 mg PO Q12H 12 Days Qty: 24 RF: 0 oxycodone 5 mg Tablet 5 mg PO Q4H PRN (Reason: Pain, Moderate (Pain Scale 4-6) Qty: 20 RF: 0 enoxaparin 100 mg/mL Syringe 85 mg subcut Q12H Qty: 6 RF: 0 Continued metformin 500 mg tablet 500 tab PO BID RF: 0 warfarin 3 mg tablet 3 mg PO DAILY RF: 0 levetiracetam 750 mg tablet 750 tab PO BID RF: 0 lisinopril 5 mg tablet 5 mg PO DAILY RF: 0 Discharge Orders: Discharge Order (Routine); Ordered 10/24/20 Ordered By: Laurita Engle Diet: diabetic diet Activity on Discharge: As tolerated Stand Alone Forms: Patient Portal Discharge page Other Ambulatory Orders: Prothrombin Time INR (DAILY) Timeframe: 20201026 Facility: [facility] - Location: Laboratory Ordered By: Laurita Engle Prothrombin Time INR (DAILY) Timeframe: 20201027 Facility: [facility] - Location: Laboratory Ordered By: Laurita Engle Prothrombin Time INR (DAILY) Timeframe: 20201028 Facility: [facility] - Location: Laboratory Ordered By: Laurita Engle Prothrombin Time INR (DAILY) Timeframe: 20201029 Facility: [facility] - Location: Laboratory Ordered By: Laurita Engle Activity Restrictions/Additional Instructions: avoid bearing weight on right forefoot Care Plan Goals: cure foot infection avoid hospitalization prevent stroke Health Concerns: osteomyelitis of the right fifth toe and metatarsal head on warfarin for prevention of embolic stroke from atrial fibrillation Plan of Treatment: INR on 10/24/20 is 1.5. check INR daily and take enoxaparin 85 mg twice daily until INR is 2 or more for two days in a row, then stop enoxaparin amputation and excision done 10/21/20; elevated the right foot; daily dressing changes with fluffs, Kerlix and NAI wrap take linezolid 600 mg twice daily for 12 more days follow up in [address] Parada for suture removal: [facility] [address] [place] [address] follow up in 2 weeks with infectious disease specialist Dr Blancas: [facility] [address], [address], [facility] [address]
[2020-10-25] MEDS: Insulin Lispro 100 UNIT/ML 3 ML VIAL SUBCUT (12:26)
[2020-10-25] MEDS: Linezolid 600 MG TABLET PO (12:26)
== END 2020-10-25 14:46 | disposition skilled nursing facility (03) | DRG 617 ==
LOC: HO.ED 18:31 → HO.EDOVER 20:29 → HO.S3 21:03
PROVIDERS: Family Medicine; Nurse Practitioner Acute Care; Surgery; Admitting Provider Hospitalist; Emergency Provider Internal Medicine; PCP Internal Medicine; Visit Provider Internal Medicine
PROC: 0Y6X0Z0 Detachment at Right 5th Toe, Complete, Open Approach (ICD-10-PCS; principal; 2020-10-21 12:10)
DX: E11.69 Type 2 diabetes mellitus with other specified complication (principal); L97.516 Non-pressure chronic ulcer of other part of right foot with bone involvement without evidence of necrosis; M86.9 Osteomyelitis, unspecified; I69.951 Hemiplegia and hemiparesis following unspecified cerebrovascular disease affecting right dominant side; I48.91 Unspecified atrial fibrillation; E11.621 Type 2 diabetes mellitus with foot ulcer; I69.920 Aphasia following unspecified cerebrovascular disease; G40.909 Epilepsy, unspecified, not intractable, without status epilepticus; E11.51 Type 2 diabetes mellitus with diabetic peripheral angiopathy without gangrene; Z20.822 Contact with and (suspected) exposure to COVID-19; Z79.01 Long term (current) use of anticoagulants; Z79.84 Long term (current) use of oral hypoglycemic drugs; Z79.899 Other long term (current) drug therapy
CPT/HCPCS: 36415; 73620; 73700; 80048; 80076; 80202; 81003; 82947; 83036; 83605; 85025; 85610; 85652; 86140; 87040; 87071; 87077; 87186; 87205; 87635; 88305; 88311; 93005; 93923; 93925; 96365; 96367; 97162; 99024; 99212; 99285; J0690; J1650; J2543; J3010; J3370; J3430; Q0163

== ENCOUNTER → 2020-11-01 11:38 | Outpatient (BNVA) | payer MEDICARE, SELFPAY | PROVIDERS: PCP Internal Medicine; Visit Provider Surgery | DX: Z89.421 Acquired absence of other right toe(s) (principal) | CPT/HCPCS: 99212 ==

== ENCOUNTER → 2020-11-22 11:29 | Outpatient (BNVA) | payer MEDICARE, SELFPAY | PROVIDERS: PCP Internal Medicine; Visit Provider Surgery | DX: M86.9 Osteomyelitis, unspecified (principal) | CPT/HCPCS: 99212 ==